=== PATIENT | male | born 1960 | race Caucasian/White ===

== ENCOUNTER 2024-02-15 21:11 | Inpatient (IN) ==
[2024-02-15 21:52] LABS: Basophils # (auto) 0.03 K/uL (0.00-0.20); Basophils % (auto) 0.2 %; Eosinophils # (auto) 0.19 K/uL (0.00-0.50); Eosinophils % (auto) 1.6 %; Hematocrit (blood only) 33.1 % (42.0-52.0); Hemoglobin 10.4 g/dl (14.0-18.0); Immature Granulocytes # (auto) 0.17 K/uL (0.01-0.20); Immature Granulocytes % (auto) 1.4 %; Lymphocytes # (auto) 1.55 K/uL (1.20-3.40); Lymphocytes % (auto) 12.9 %; Mean Corpuscular Hemoglobin 19.9 pg (25.0-34.0); Mean Corpuscular Hgb Conc 31.4 g/dL (32.0-36.0); Mean Corpuscular Volume 63.3 fL (80.0-100.0); Monocytes # (auto) 1.64 K/uL (0.11-0.59); Monocytes % (auto) 13.6 %; Neutrophils # (auto) 8.48 K/uL (1.40-6.50); Neutrophils % (auto) 70.3 %; RDW Coefficient of Variation 14.9 % (11.5-14.5); RDW Standard Deviation 32.8 fL (36.4-46.3); Red Blood Count 5.23 M/uL (4.70-6.10); White Blood Count 12.06 K/ul (4.8-10.8)
[2024-02-15 21:56] LABS: Alanine Aminotransferase 30 U/L (7-52); Albumin Globulin Ratio 0.8 (0.9-2); Albumin Level 3.7 gm/dl (3.4-5.0); Alkaline Phosphatase 111 U/L (34-104); Anion Gap 12 (3-11); Aspartate Aminotransferase 52 U/L (13-39); BUN Creatinine Ratio 19.1 (10-20); Bilirubin,Total 0.6 mg/dl (0.2-1.0); Blood Urea Nitrogen 30 mg/dl (6-23); Calcium 9.4 mg/dl (8.6-10.3); Carbon Dioxide 25 mmol/L (21-32); Chloride 96 mmol/L (98-107); Est GFR (African American) 52.5 ml/min; Est GFR (Non-African American) 45.3 ml/min; Globulin 4.4 gm/dl (2.5-4.0); Glucose 139 mg/dl (70-99(Fasting)); Potassium 3.3 mmol/L (3.5-5.1); Sodium 133 mmol/L (136-145); Total Protein 8.1 gm/dl (6.0-8.3)
[2024-02-15 22:12] LABS: Influenza A virus by PCR Negative (Neg); Influenza B virus by PCR Negative (Neg); RSV by PCR Negative (Neg); SARS CoV2 RNA(COVID-19) Ceph NEGATIVE (Negative)
[2024-02-15] MEDS: SODIUM CHLORIDE 0.9% 1,000 ML IV SCH (22:15)
--- NOTE | 2024-02-15 22:25 | Emergency Department Note ---
History of Present Illness General Chief complaint: Illness Stated complaint: DEHYDRATED,LOSING WEIGHT,FEVER,HAD L KNEE SURGERY Time Seen by Provider: 02/15/24 21:54 History of Present Illness Maximum Pain Intensity: 8 This 64-year-old gentleman who had knee surgery a week ago by Dr. Gan presents the ER complaining of fever, chills and knee pain and swelling. Patient denies chest pain, dyspnea, cough, congestion, abdominal pain. Patient states since surgery the knees are more swollen but is not red or infected appearing. No drainage from the incisional sites. He had meniscal repair surgery. Home Medications Medication Instructions Recorded Confirmed Type aspirin 81 mg tablet,delayed 81 mg PO DAILY 11/22/21 02/04/24 History release tamsulosin 0.4 mg capsule 0.4 mg PO DAILY #90 caps 01/24/23 02/04/24 Rx allopurinol 100 mg tablet See Rx Instructions .Route 05/31/23 02/04/24 Rx .COMPLEX #30 tabs docusate sodium [Stool Softener] PO DAILY 08/01/23 02/04/24 History hydrochlorothiazide 25 mg tablet 25 mg PO DAILY #90 tabs 08/22/23 02/04/24 Rx atorvastatin 20 mg tablet 20 mg PO DAILY #90 tabs 10/30/23 02/04/24 Rx tadalafil 20 mg tablet 20 mg PO DAILY PRN sexual activity 11/22/23 02/04/24 Rx #10 tabs duloxetine 60 mg capsule,delayed See Rx Instructions .Route 01/22/24 02/04/24 Rx release .COMPLEX #90 caps trazodone 150 mg tablet See Rx Instructions .Route 01/24/24 02/04/24 Rx .COMPLEX #90 tabs triamcinolone acetonide 0.1 % 1 applic topical BID PRN 02/04/24 History topical ointment omeprazole 40 mg capsule,delayed 40 mg PO QDAY #30 caps 02/05/24 Rx release Allergies Allergy/AdvReac Type Severity Reaction Status Date / Time No Known Allergies Allergy Unverified 02/04/24 10:12 Past Med/Surg History Medical History Chronic kidney disease (CKD) Depression Hyperlipemia Surgical History Status post right knee replacement Family History Grandmother (Maternal) Diabetes Heart disease Myocardial infarction Denies family history of Ovarian cancer Prostate cancer Breast cancer Colorectal cancer Social History Smoking Status: Never smoker Second Hand Exposure: No; Do You Dip or Chew Tobacco: No; Hx Alcohol Use: No Hx Substance Use: No Preferred Language: Martiniquais Communication Ability: Effective Visual Impairment: No Limitations Hearing Ability: Normal Angiography Technologist Required: No marital status: Legally Current Living Situation: Alone current occupational status: employed Feels Safe at Home: Yes Childhood Exposure to Second-Hand Smoke: No Diet: regular Dental Care, Regularly: No Physical Activity Frequency: 3-4 Times per Week Seatbelt Use: always Sunscreen Use: No Assistive Devices: Glasses Review of Systems A total of 10 systems reviewed and were otherwise negative Physical Exam Vital Signs Vital Signs - 24 hr 02/15/24 21:14 02/15/24 22:02 02/15/24 22:07 Temperature 37.9 C H Temperature Source Oral Pulse Rate 100 H 87 Pulse Rate [Apical] 87 Pulse Rhythm [Apical] Pulse Strength [Apical] Respiratory Rate 17 18 Respiratory Effort / Characteristics Non-Labored Spontaneous Non-Labored Respiratory Depth Normal Normal Respiratory Pattern Regular Regular Blood Pressure 154/81 H Blood Pressure [Left Arm] 151/88 H Blood Pressure Mean 105 Blood Pressure Mean [Left Arm] 109 Blood Pressure Position Sitting Blood Pressure Position [Left Arm] Pulse Oximetry 98 99 Oxygen Delivery Method Room Air Room Air Sepsis Recent Fever Within 48 Hours No Sepsis New/Unexplained Change in Mental Status No Sepsis Action Taken by Nursing No Action Required 02/15/24 22:22 02/15/24 22:40 02/16/24 01:30 Temperature Temperature Source Pulse Rate 90 Pulse Rate [Apical] 84 77 Pulse Rhythm [Apical] Regular Pulse Strength [Apical] Normal Respiratory Rate 18 18 18 Respiratory Effort / Characteristics Non-Labored Non-Labored Spontaneous Respiratory Depth Normal Normal Respiratory Pattern Regular Regular Blood Pressure Blood Pressure [Left Arm] 151/88 H 156/86 H Blood Pressure Mean Blood Pressure Mean [Left Arm] 109 109 Blood Pressure Position Blood Pressure Position [Left Arm] Lying Pulse Oximetry 98 100 99 Oxygen Delivery Method Room Air Room Air Sepsis Recent Fever Within 48 Hours Sepsis New/Unexplained Change in Mental Status Sepsis Action Taken by Nursing VITALS: Vitals are noted on the nurse's note and reviewed by myself. Vital signs low-grade fever GENERAL: Pleasant patient, in no acute distress, nondiaphoretic, well-developed well-nourished. SKIN: Capillary reflex less than 2 seconds. HEENT: Normocephalic. PERRLA. EOMI. Nares patent. Mucous membranes moist. Neck is supple without nuchal rigidity. HEART: Regular rate and rhythm LUNGS: Clear to auscultation bilaterally without wheezes, rales or rhonchi. No retractions or accessory muscle use. ABDOMEN: Positive bowel sounds x 4. Normal tympanic percussion. Soft, nontender, without masses or organomegaly. Dominguez sign negative. No guarding or rebound tenderness. no CVA tenderness MUSCULOSKELETAL: No gross musculoskeletal defects. Left knee edematous and tender to palpation without erythema or drainage from the incisional sites. Increased pain with range of motion. Pulses +2 equal present bilaterally. NEURO: Patient was alert and oriented to person place and time. No focal neurological deficits. Procedures Joint Aspiration/Injection Joint Asp./Inject. 1: Time Out Performed: Yes Side of body: left Joint Aspirated: knee Ultrasound Guidance: No Skin Prep: Povidone-Iodine1% Local Anesthetic: other anesthetic (spary) Needle Size Used: 18G Fluid Obtained: bloody Total fluid obtained (mL): 5 Patient Tolerated Procedure: well and no complications Complications: none Course Administered Medications Ceftriaxone Sodium (Rocephin) 2,000 mg in 50 mls @ 100 mls/hr IV NOW STA Stop: 02/16/24 02:13 Last Admin: 02/16/24 01:56 Dose: 100 mls/hr Documented By: SOLEDAD Morphine Sulfate (Morphine Sulfate 4 Mg/Ml 1 Ml Carp\Vial) 4 mg IV NOW STA Stop: 02/16/24 01:45 Last Admin: 02/16/24 01:56 Dose: 4 mg Documented By: SOLEDAD Discontinued Medications Sodium Chloride (Nss) 1,000 mls @ 999 mls/hr IV .Q1H1M NOAH Stop: 02/15/24 23:15 Last Infusion: 02/15/24 23:36 Dose: Infused Documented By: Admin: 02/15/24 22:15 Dose: 999 mls/hr Documented By: CALVIN Morphine Sulfate (Morphine Sulfate 4 Mg/Ml 1 Ml Carp\Vial) 4 mg IV NOW STA Stop: 02/15/24 23:19 Last Admin: 02/15/24 23:26 Dose: 4 mg Documented By: ERMIAS Medical Decision Making Medical Records Attestation: I reviewed the patient's medical records. Home Medications Current Medication List: was personally reviewed by me Laboratory Data Attestation: I reviewed the patient's lab results. 02/15/24 21:22 02/15/24 21:22 Lab Results 02/15/24 02/15/24 02/15/24 Range/Units 21:20 21:22 22:19 WBC 12.06 H (4.8-10.8) K/ul RBC 5.23 (4.70-6.10) M/uL Hgb 10.4 L (14.0-18.0) g/dl Hct 33.1 L (42.0-52.0) % MCV 63.3 L (80.0-100.0) fL MCH 19.9 L (25.0-34.0) pg MCHC 31.4 L (32.0-36.0) g/dL RDW Std Deviation 32.8 L (36.4-46.3) fL RDW Coeff of Joi 14.9 H (11.5-14.5) % Plt Count 385 (130-400) K/uL MPV 9.9 (9.4-12.4) fL Immature Gran % (Auto) 1.4 % Neut % (Auto) 70.3 % Lymph % (Auto) 12.9 % Morrow % (Auto) 13.6 % Eos % (Auto) 1.6 % Baso % (Auto) 0.2 % Neut # (Auto) 8.48 H (1.40-6.50) K/uL Lymph # (Auto) 1.55 (1.20-3.40) K/uL Morrow # (Auto) 1.64 H (0.11-0.59) K/uL Eos # (Auto) 0.19 (0.00-0.50) K/uL Baso # (Auto) 0.03 (0.00-0.20) K/uL Immature Gran # (Auto) 0.17 (0.01-0.20) K/uL Anisocytosis Present Microcytosis Present Tear Drop Cells 1+ Ovalocytes 1+ Sodium 133 L (136-145) mmol/L Potassium 3.3 L (3.5-5.1) mmol/L Chloride 96 L (98-107) mmol/L Carbon Dioxide 25 (21-32) mmol/L Anion Gap 12 H (3-11) BUN 30 H (6-23) mg/dl Creatinine 1.57 H (0.6-1.4) mg/dl Est Cr Clr Drug Dosing Not Reportable Est GFR ( Amer) 52.5 ml/min Est GFR (Non-Af Amer) 45.3 ml/min BUN/Creatinine Ratio 19.1 (10-20) Glucose 139 H (70-99(Fasting)) mg/dl Lactate 1.5 (0.4-2.0) mmol/L Calcium 9.4 (8.6-10.3) mg/dl Magnesium 2.1 (1.7-2.4) mg/dl Total Bilirubin 0.6 (0.2-1.0) mg/dl Direct Bilirubin 0.1 (0-0.2) mg/dl AST 52 H (13-39) U/L ALT 30 (7-52) U/L Alkaline Phosphatase 111 H (34-104) U/L Total Protein 8.1 (6.0-8.3) gm/dl Albumin 3.7 (3.4-5.0) gm/dl Globulin 4.4 H (2.5-4.0) gm/dl Albumin/Globulin Ratio 0.8 L (0.9-2) Procalcitonin 0.20 (0-0.5) ng/ml Urine Color Urine Appearance (Clear) Urine pH (4.5-7.5) Ur Specific Kenney (1.000-1.030) Urine Protein (Negative) Urine Glucose (UA) (Negative) Urine Ketones (Negative) Urine Blood (Negative) Urine Nitrite (Negative) Urine Bilirubin (Negative) Urine Urobilinogen (Negative) Ur Leukocyte Esterase (Negative) Urine WBC (Auto) (0-5) /hpf Urine RBC (Auto) (0-2) /hpf U Hyaline Cast (Auto) (0-2) /lpf U Epithel Cells (Auto) (0-2) /hpf Urine Bacteria (Auto) (None Seen) Fluid Comment Synovial Source Synovial Color Synovial Appearance Synovial WBC (Auto) (0-200) /ul Synovial RBC (Auto) /uL Synovial Polynuclear % % Synovial Mononuclear % % SARS-CoV-2 (PCR) NEGATIVE (Negative) Influenza Type A (PCR) Negative (Neg) Influenza Type B (PCR) Negative (Neg) RSV (RT-PCR) Negative (Neg) 02/15/24 02/15/24 Range/Units 23:17 23:25 WBC (4.8-10.8) K/ul RBC (4.70-6.10) M/uL Hgb (14.0-18.0) g/dl Hct (42.0-52.0) % MCV (80.0-100.0) fL MCH (25.0-34.0) pg MCHC (32.0-36.0) g/dL RDW Std Deviation (36.4-46.3) fL RDW Coeff of Joi (11.5-14.5) % Plt Count (130-400) K/uL MPV (9.4-12.4) fL Immature Gran % (Auto) % Neut % (Auto) % Lymph % (Auto) % Morrow % (Auto) % Eos % (Auto) % Baso % (Auto) % Neut # (Auto) (1.40-6.50) K/uL Lymph # (Auto) (1.20-3.40) K/uL Morrow # (Auto) (0.11-0.59) K/uL Eos # (Auto) (0.00-0.50) K/uL Baso # (Auto) (0.00-0.20) K/uL Immature Gran # (Auto) (0.01-0.20) K/uL Anisocytosis Microcytosis Tear Drop Cells Ovalocytes Sodium (136-145) mmol/L Potassium (3.5-5.1) mmol/L Chloride (98-107) mmol/L Carbon Dioxide (21-32) mmol/L Anion Gap (3-11) BUN (6-23) mg/dl Creatinine (0.6-1.4) mg/dl Est Cr Clr Drug Dosing Est GFR ( Amer) ml/min Est GFR (Non-Af Amer) ml/min BUN/Creatinine Ratio (10-20) Glucose (70-99(Fasting)) mg/dl Lactate (0.4-2.0) mmol/L Calcium (8.6-10.3) mg/dl Magnesium (1.7-2.4) mg/dl Total Bilirubin (0.2-1.0) mg/dl Direct Bilirubin (0-0.2) mg/dl AST (13-39) U/L ALT (7-52) U/L Alkaline Phosphatase (34-104) U/L Total Protein (6.0-8.3) gm/dl Albumin (3.4-5.0) gm/dl Globulin (2.5-4.0) gm/dl Albumin/Globulin Ratio (0.9-2) Procalcitonin (0-0.5) ng/ml Urine Color Yellow Urine Appearance Clear (Clear) Urine pH 5.5 (4.5-7.5) Ur Specific Kenney 1.020 (1.000-1.030) Urine Protein 1+ H (Negative) Urine Glucose (UA) Negative (Negative) Urine Ketones Negative (Negative) Urine Blood 3+ H (Negative) Urine Nitrite Negative (Negative) Urine Bilirubin Negative (Negative) Urine Urobilinogen Negative (Negative) Ur Leukocyte Esterase Negative (Negative) Urine WBC (Auto) 0-5 (0-5) /hpf Urine RBC (Auto) 6-10 H (0-2) /hpf U Hyaline Cast (Auto) 0-2 (0-2) /lpf U Epithel Cells (Auto) 0-2 (0-2) /hpf Urine Bacteria (Auto) None Seen (None Seen) Fluid Comment Synovial Source Left Knee Synovial Color Red Synovial Appearance Cloudy Synovial WBC (Auto) 38405 H (0-200) /ul Synovial RBC (Auto) 006192 /uL Synovial Polynuclear % 93.6 % Synovial Mononuclear % 6.4 % SARS-CoV-2 (PCR) (Negative) Influenza Type A (PCR) (Neg) Influenza Type B (PCR) (Neg) RSV (RT-PCR) (Neg) Imaging Data Attestation: I personally reviewed and interpreted this imaging study as follows: MDM Narrative Prior records/ancillary studies reviewed. Triage Nursing notes reviewed. Additional history obtained from family. The patient's history was concerning for fever. Differential diagnosis: Etiologies such as postop infection, viral syndrome, otitis, pharyngitis, pneumonia, influenza, meningitis, urinary tract infection, sepsis, bacteremia, as well as others were entertained. Physical examination: As above ER treatment provided: An order was placed for continuous cardiac monitoring. The monitor shows a rate of 60-100 with a sinus rhythm per my interpretation. IV fluids, Tylenol, Rocephin, morphine On reassessment the patient felt better. Diagnostics interpreted by me: The labs Independently Interpreted by myself revealed mild leukocytosis, mild anemia Blood cultures pending. Joint fluid analysis was reviewed and patient is almost 100,000 white blood cells. Gram stain shows many white blood cells Imaging studies: Knee x-ray with no fracture, foreign body or dislocation per my independent interpretation Consultation: A consultation was placed with Dr. Elliott. The case was discussed and diagnostics were reviewed. He recommends joint aspiration but believes is unlikely the patient has a septic joint from recent procedure. I called him back after that joint fluid analysis was posted and he recommends antibiotics and medical admission. Meds was consulted and the case was discussed. Patient be admitted to the medical service for further evaluation and treatment. This appears to be consistent with fever with concerns for joint infection. Patient was started on antibiotics. Medicine and orthopedics were consulted. Fluid analysis of the joint was evaluated and is concerning for possible infection. Patient is agreeable treatment plan of admission. Patient be admitted to the medical service. By the evaluation outlined above emergent etiologies such as otitis, pharyngitis, pneumonia, meningitis, urinary tract infection, sepsis, bacteremia, as well as others were deemed relatively unlikely. The pt informed about the findings as listed above. All questions were answered and pleased with the treatment. The chart was completed utilizing [employer] Speech voice recognition software. Grammatical errors, random word insertions, pronoun errors, and incomplete sentences are an occassional consequence of this system due to software limitations, ambient noise, and hardware issues. Any formal questions or concerns about the content, text, or information contained within the body of this dictation should be directly addressed to the physician music library assistant for clarification. Impression & Plan Fever, Knee swelling Discharge Plan Visit Data Chief Complaint: Illness Stated Complaint: DEHYDRATED,LOSING WEIGHT,FEVER,HAD L KNEE SURGERY ED Provider: Colin Bauer ED Midlevel Provider: Mora Jules Discharge Problem: Fever, Knee swelling Patient Disposition: Admitted As Inpatient Condition: Good Forms Stand Alone Forms: My [facility] Prescriptions Prescriptions: No Action allopurinol 100 mg tablet See Rx Instructions .ROUTE .COMPLEX Qty: 30 5RF Dose Instruction: TAKE ONE TABLET BY MOUTH EVERY DAY Rx Instructions: TAKE ONE TABLET BY MOUTH EVERY DAY docusate sodium [Stool Softener] PO DAILY hydrochlorothiazide 25 mg tablet 25 mg PO DAILY Qty: 90 1RF atorvastatin 20 mg tablet 20 mg PO DAILY Qty: 90 1RF duloxetine 60 mg capsule,delayed release(DR/EC) See Rx Instructions .ROUTE .COMPLEX Qty: 90 3RF Dose Instruction: TAKE ONE CAPSULE BY MOUTH EVERY DAY Rx Instructions: TAKE ONE CAPSULE BY MOUTH EVERY DAY trazodone 150 mg tablet See Rx Instructions .ROUTE .COMPLEX Qty: 90 0RF Dose Instruction: TAKE ONE TABLET BY MOUTH EVERY DAY Rx Instructions: TAKE ONE TABLET BY MOUTH EVERY DAY omeprazole 40 mg capsule,delayed release(DR/EC) 40 mg PO QDAY Qty: 30 1RF tamsulosin 0.4 mg capsule 0.4 mg PO DAILY Qty: 90 3RF tadalafil 20 mg tablet 20 mg PO DAILY PRN (Reason: sexual activity) Qty: 10 5RF Rx Instructions: administer approximately 30min before sexual activity; do not use more than 1 dose per 24hrs aspirin 81 mg tablet,delayed release (DR/EC) 81 mg PO DAILY triamcinolone acetonide 0.1 % ointment 1 applic topical BID PRN Referrals Referrals: Katie Persaud MD [Primary Care Provider] - Discharge Problem: Fever Qualifiers: Fever type: unspecified Qualified Code(s): R50.9 - Fever, unspecified
[2024-02-15 22:45] LABS: Anisocytosis Present; Mean Platelet Volume 9.9 fL (9.4-12.4); Microcytosis Present; Ovalocytes 1+; Platelet Count 385 K/uL (130-400); Tear Drop Cells 1+
[2024-02-15 22:52] LABS: Bilirubin Direct 0.1 mg/dl (0-0.2); Magnesium 2.1 mg/dl (1.7-2.4)
[2024-02-15] MEDS: MoRPHine SULFATE 4 MG/ML 1 ML CARP\\VIAL IV STA (23:26)
[2024-02-16 00:04] LABS: Appearance Urine Clear (Clear); Bacteria Urine Automated None Seen (None Seen); Bilirubin Urine Negative (Negative); Blood Urine 3+ (Negative); Cast Urine Automated 0-2 /lpf (0-2); Color Urine Yellow; Epithelial Cell Urine Auto 0-2 /hpf (0-2); Glucose Urine UA Negative (Negative); Ketones Urine Negative (Negative); Leukocyte Esterase Urine Negative (Negative); Nitrite Urine Negative (Negative); Protein Urine 1+ (Negative); Urobilinogen Urine Negative (Negative); WBC Urine Automated 0-5 /hpf (0-5); pH Urine 5.5 (4.5-7.5)
[2024-02-16 00:33] LABS: Appearance Synovial Fluid Cloudy; Color Synovial Fluid Red; Mononuclear WBC Synovial 6.4 %; Polynuclear WBC Synovial 93.6 %; RBC Synovial Fluid Auto 100000 /uL; Source Synovial Fluid Left Knee; WBC Synovial Fluid Auto 93460 /ul (0-200)
[2024-02-16] MEDS: MoRPHine SULFATE 4 MG/ML 1 ML CARP\\VIAL IV STA ×2 (01:56→04:11)
[2024-02-16] MEDS: cefTRIAXone SODIUM 2,000 MG/50 ML BAG IV STA (01:56)
--- NOTE | 2024-02-16 01:58 | History & Physical Report ---
"Date of Service February 16, 2024 Assessment & Plan (1) Knee swelling: (2) Fever: (3) Prediabetes: (4) Gout: (5) Chronic kidney disease (CKD): Plan Left Knee Pain | Fever, Leukocytosis | S/P Meniscus Repair -Last (02/06) had meniscus repair to his left knee -Intermittent fevers and poor PO intake/chills since Sunday -WBC 12.06k, ESR >130, CRP 25.9. Procal negative. -Joint aspiration completed in ED, synovial fluid analysis with 9300K WBC -Received 2g Ceftriaxone in ED, will continue Ceftriaxone and add Vancomycin -MRSA nares pending -Will consult orthopedics, appreciate recommendations -Tylenol, Dilaudid PRN for pain control CKD -Cr of 1.57 on arrival -Will hold HCTZ -Avoid nephrotoxic medications Gout -Continue allopurinol Depression -Continue duloxetine, trazodone HLD -Continue statin Admit to med/tele VTE prophylaxis: will defer while awaiting ortho evaluation Diet: NPO, IV fluids Code Status: Full Code History of Present Illness Primary Care Provider: Katie Persaud MD Moisés Freeman is a 64 year-old male with past medical history of CKD, HLD, gout, prediabetes, and DJD who presented to the ED due to concern of fevers and left knee pain. Mr. Freeman underwent a meniscus repair for his left knee last and a few days later (Sunday) he began to spike a fever. He notes that he contacted the orthopedics group but since his left knee was not red/swollen it was likely not related to his surgery. Since then he has continued to spike temperatures up to 101.7F and has felt generally unwell with chills, poor appetite (has lost ~10 pounds in the same time frame), and increased knee pain. Patient notes that his left knee does appear swollen when compared to the right side and is warm to the touch, but denies any redness. Patient denies chest pain, shortness of breath, nausea/vomiting, changes in bowel/bladder habits. Patient notes that he has had a right knee replacement in the past, but this recent surgery was a mensiscus repair and the joint itself was not replaced. ED Course: -Aspiration of left knee, sent for analysis and culture -XR left knee -CBC, CMP, ESR, CRP, procal Allergies Allergy/AdvReac Type Severity Reaction Status Date / Time No Known Allergies Allergy Unverified 02/16/24 02:34 Home Medications Medication Instructions Recorded Confirmed Type aspirin 81 mg tablet,delayed 81 mg PO DAILY 11/22/21 02/16/24 History release tamsulosin 0.4 mg capsule 0.4 mg PO DAILY #90 caps 01/24/23 02/16/24 Rx hydrochlorothiazide 25 mg tablet 25 mg PO DAILY #90 tabs 08/22/23 02/16/24 Rx atorvastatin 20 mg tablet 20 mg PO DAILY #90 tabs 10/30/23 02/16/24 Rx tadalafil 20 mg tablet 20 mg PO DAILY PRN sexual activity 11/22/23 02/16/24 Rx #10 tabs triamcinolone acetonide 0.1 % 1 applic topical BID PRN .. 02/04/24 02/16/24 History topical ointment omeprazole 40 mg capsule,delayed 40 mg PO QDAY #30 caps 02/05/24 02/16/24 Rx release allopurinol 100 mg tablet 100 mg PO DAILY 02/16/24 02/16/24 History docusate sodium 100 mg capsule 100 mg PO DAILY 02/16/24 02/16/24 History duloxetine 60 mg capsule,delayed 60 mg PO DAILY 02/16/24 02/16/24 History release trazodone 150 mg tablet 150 mg PO HS 02/16/24 02/16/24 History Past Med/Surg History Medical History Chronic kidney disease (CKD) Depression Hyperlipemia Surgical History Status post right knee replacement Family History Grandmother (Maternal) Diabetes Heart disease Myocardial infarction Denies family history of Ovarian cancer Prostate cancer Breast cancer Colorectal cancer Social History Smoking Status: Never smoker Second Hand Exposure: No; Do You Dip or Chew Tobacco: No; Hx Alcohol Use: No Hx Substance Use: No Preferred Language: Czech Communication Ability: Effective Visual Impairment: No Limitations Hearing Ability: Normal Air And Water Tester Required: No Beliefs That Will Affect Care: None marital status: Legally Current Living Situation: Spouse current occupational status: employed Feels Safe at Home: Yes Childhood Exposure to Second-Hand Smoke: No Diet: regular Dental Care, Regularly: No Physical Activity Frequency: 3-4 Times per Week Seatbelt Use: always Sunscreen Use: No Assistive Devices: Cane Review of Systems Review of Systems: As per above Physical Exam Constitutional: WD/WN, vitals as above Eyes: + anicteric sclerae; no conjunctival abn ormality ENMT: Ears: no external ear abnormality Nose: no external nose abnormality Moist mucous membranes Respiratory: normal respiratory effort, lungs clear to auscultation Cardiovascular: Rate/Rhythm: regular rate and regular rhythm Extremities: no pedal edema Gastrointestinal (Abdomen): Inspection/Auscultation: abdomen normal to inspection Percussion/Palpation: abdomen soft; abdomen nontender and no guarding Musculoskeletal: Left knee without erythema but edema noted. No drainage or bleeding. Skin: no rashes, warm and dry Neurologic: no focal motor deficits Psychiatric: A+Ox3, euthymic affect Results & Data Results & Data Vital Signs (Past 12 Hours) Vital Signs Temp Pulse Pulse Resp BP BP Pulse Ox 02/16/24 01:30 77 18 156/86 H 99 02/15/24 22:40 84 18 151/88 H 100 02/15/24 22:22 90 18 98 02/15/24 22:07 87 02/15/24 22:02 87 18 151/88 H 99 02/15/24 21:14 37.9 C H 100 H 17 154/81 H 98 O2 Del Method 02/16/24 01:30 Room Air 02/15/24 22:40 Room Air 02/15/24 22:22 02/15/24 22:07 02/15/24 22:02 Room Air 02/15/24 21:14 Room Air Supervising Physician Co-Signing Physician Notes Patient seen and examined, chart reviewed, case discussed with Dr. Moody and I agree with the assessment and plan as above. Patient is a 64yo male s/p left meniscus repair performed on 02/07/24. He has had intermittent fevers, poor oral intake and chills ongoing since 02/09/24. He has had progressive knee pain and swelling. Knee was aspirated in the ER On exam he is uncomfortable Left knee is warm, swollen and tender to touch Remainder of exam is unremarkable Labs and images reviewed WBC=12.06 ESR>130 Synovial fluid with 91285 WBCs, crystals pending Assessment/Plan Concern for septic arthritis following instrumentation/meniscus repair of left knee -Ceftriaxone and Vancomycin -Pain control -Orthopedics consultation appreciated -Remainder as above Resident Activity Tracking Resident Involvement: Resident Care Provided Care Provided: Adult Hospital Medicine (2) Fever Fever type: unspecified Qualified Code(s): R50.9 - Fever, unspecified"
[2024-02-16] MEDS ORDERED: HYDROmorphone INJ 0.5 MG/0.5 ML SYR IV PRN (04:45)
[2024-02-16] MEDS ORDERED: ONDANSETRON INJ 2 MG/ML 2 ML VIAL IV PRN ×2 (04:45→14:40)
[2024-02-16] MEDS ORDERED: VANCOMYCIN CONSULT ACTIVE PRN (04:45)
[2024-02-16] MEDS ORDERED: POLYETHYLENE (MIRALAX) 17 GM PACK PO PRN (04:45)
[2024-02-16] MEDS: HYDROmorphone INJ 1 MG/ML SYRINGE IV STA (05:32)
[2024-02-16] MEDS: PLASMA-LYTE A 1,000 ML IV SCH (05:32)
[2024-02-16] MEDS: VANCOMYCIN HCL 2,000 MG in SODIUM CHLORIDE 0.9% 500 ML IV ONE (05:32)
--- NOTE | 2024-02-16 07:51 | XRay Report ---
XR knee LT 3V HISTORY: 64 years-old Male pain/fever, recent OR acute pain of the left knee COMPARISON: 01/12/2024 TECHNIQUE: 3 views of the left knee FINDINGS: Mild lateral with [id number] medial and patellofemoral compartment osteoarthritis. Small to mod erate joint effusion. No acute fracture, dislocation or osseous erosion. No osteochondral defect. IMPRESSION: 1. Osteoarthritis without acute fracture or dislocation. 2. Stable [id number] joint effusion. ACT 112: Negative or not required by law. The above report was generated using voice recognition software. It may contain grammatical, syntax o r spelling errors. Electronically signed by: Harley Oro M.D. 02/16/2024 7:50 AM
--- NOTE | 2024-02-16 08:03 | XRay Report ---
XR chest 1V portable HISTORY: 64 years-old Male Sepsis acute sepsis COMPARISON: 09/13/2015 TECHNIQUE: AP view of the chest FINDINGS: Cardiomediastinal and hilar silhouettes are within normal limits. No pneumothorax, pleural effusion o r airspace consolidation. The bones of the chest appear grossly intact. IMPRESSION: No acute process. ACT 112: Negative or not required by law. The above report was generated using voice recognition software. It may contain grammatical, syntax o r spelling errors. Electronically signed by: Harley Oro M.D. 02/16/2024 8:02 AM
[2024-02-16] MEDS: DULoxetine HCL 60 MG CAP PO SCH (08:25)
[2024-02-16] MEDS: PANTOprazole 40 MG TAB PO SCH (08:25)
[2024-02-16] MEDS: TAMSULOSIN HCL 0.4 MG CAP PO SCH (08:25)
[2024-02-16] MEDS: allopurinoL 100 MG TAB PO SCH (08:25)
[2024-02-16] MEDS: ASPIRIN 81 MG ECTAB PO SCH (08:25)
[2024-02-16] MEDS: ATORVASTATIN 20 MG TAB PO SCH (08:25)
[2024-02-16] MEDS: HYDROmorphone INJ 1 MG/ML SYRINGE IV PRN (09:56)
--- NOTE | 2024-02-16 12:11 | Electrocardiogram Report ---
Test Reason : Blood Pressure : / mmHG Vent. Rate : 081 BPM Atrial Rate : 081 BPM P-R Int : 160 ms QRS Dur : 152 ms QT Int : 446 ms P-R-T Axes : 046 030 029 degrees QTc Int : 518 ms Normal sinus rhythm Right bundle branch block Abnormal ECG When compared with ECG of 17-JUL-2022 14:28, No significant change was found Confirmed by Nixon Morales ([id number]) on 02/16/2024 12:11:39 PM Referred By: REFERRED SELF Confirmed By:Nixon Morales
--- NOTE | 2024-02-16 12:56 | Orthopedic Consultation ---
Date of Service February 16, 2024 Assessment & Plan (1) Knee swelling: I discussed with him the diagnosis and treatment options. I told him that the joint aspirate was mostly a bloody aspirate so the cell count is not very reliable. It is also very unlikely that he has a joint infection following a knee arthroscopy. However, all of his infection markers were elevated and he is spiking a fever. I offered him a reaspiration of his knee but he adamantly refused. He was hoping to be more aggressive. I talked about giving this time and just seeing if the swelling went down, however, he is in a lot of pain and is unable to ambulate. Given all this, I felt it was reasonable to take him to the operating room to do an arthroscopic I&D and obtain better cultures. He understands the risk benefits alternatives procedure elected to proceed. Questions were answered and consents were signed. He is currently NPO. I plan on doing the procedure later this afternoon. History of Present Illness Reason for Consultation: Left knee infection. Requesting Physician: . Attending Physician: Maria D Lovett MD Moisés is a 64-year-old male who underwent a left knee arthroscopy about [address] Gan. He did great for the first 7 to 8 days in the last few days he has pattern for an significant increase in pain and swelling of his left knee. He is also been spiking fevers. He says he feels weak and he is unable to ambulate. He came to the emergency room with a swollen knee. His white count, sed rate, and CRP were all significantly elevated. He was running a fever. The emergency room aspirated his knee and had mostly a bloody aspiration. They did send it for cell count which showed 93,000 white cells but also overall 100,000 red blood cells. He was started on ceftriaxone and admitted to the hospitalist service with a diagnosis of possible joint infection. Orthopedics was consulted to evaluate and treat.. Allergies Allergy/AdvReac Type Severity Reaction Status Date / Time No Known Allergies Allergy Unverified 02/16/24 02:34 Home Medications Medication Instructions Recorded Confirmed Type aspirin 81 mg tablet,delayed 81 mg PO DAILY 11/22/21 02/16/24 History release tamsulosin 0.4 mg capsule 0.4 mg PO DAILY #90 caps 01/24/23 02/16/24 Rx hydrochlorothiazide 25 mg tablet 25 mg PO DAILY #90 tabs 08/22/23 02/16/24 Rx atorvastatin 20 mg tablet 20 mg PO DAILY #90 tabs 10/30/23 02/16/24 Rx tadalafil 20 mg tablet 20 mg PO DAILY PRN sexual activity 11/22/23 02/16/24 Rx #10 tabs triamcinolone acetonide 0.1 % 1 applic topical BID PRN .. 02/04/24 02/16/24 History topical ointment omeprazole 40 mg capsule,delayed 40 mg PO QDAY #30 caps 02/05/24 02/16/24 Rx release allopurinol 100 mg tablet 100 mg PO DAILY 02/16/24 02/16/24 History docusate sodium 100 mg capsule 100 mg PO DAILY 02/16/24 02/16/24 History duloxetine 60 mg capsule,delayed 60 mg PO DAILY 02/16/24 02/16/24 History release trazodone 150 mg tablet 150 mg PO HS 02/16/24 02/16/24 History Past Med/Surg History Medical History Chronic kidney disease (CKD) Depression Hyperlipemia Surgical History Status post right knee replacement Family History Grandmother (Maternal) Diabetes Heart disease Myocardial infarction Denies family history of Ovarian cancer Prostate cancer Breast cancer Colorectal cancer Social History Smoking Status: Never smoker Second Hand Exposure: No; Do You Dip or Chew Tobacco: No; Tobacco Cessation Education Requested by Patient: No Hx Alcohol Use: No Hx Substance Use: No Preferred Language: [place]i Communication Ability: Effective Visual Impairment: No Limitations Hearing Ability: Normal Sugar Mixer Required: No Beliefs That Will Affect Care: None marital status: Legally Current Living Situation: Spouse current occupational status: employed Other Information That Helps Us Care for You: No Feels Safe at Home: Yes Safety Concerns: Feels Safe At This Time Childhood Exposure to Second-Hand Smoke: No Diet: regular Dental Care, Regularly: No Physical Activity Frequency: 3-4 Times per Week Seatbelt Use: always Sunscreen Use: No Assistive Devices: Cane Review of Systems All systems reviewed & are unremarkable except as noted in HPI & below. Physical Exam On physical examination of the left knee, there is a large effusion. There is no erythema. He has very limited range of motion due to the pain and swelling.. Constitutional WD/WN, vitals as above Eyes PERRL, conjunctivae normal, anicteric sclerae ENMT external ear and nose normal, oropharynx normal Neck trachea midline, no thyromegaly Respiratory normal respiratory effort Cardiovascular RRR, no murmur, no edema Gastrointestinal (Abdomen) normal bowel sounds, soft, nontender, no hepatosplenomegaly Psychiatric A+Ox3, euthymic affect Results & Data Results & Data Laboratory Results . Diagnostic Findings . PG Care Time/CCT Total # of Minutes Spent Total Time Spent with Patient: Total time spent is greater than 50% in coordination of care (as documented) at patient's floor/unit and/or counseling patient: Coding Level of Care Code 93386 IN/OBS CONSULT LVL 4,60M (57 - DECISION FOR SURGERY) Diagnoses Knee swelling M25.469
--- NOTE | 2024-02-16 13:31 | Pharmacy Report ---
Pharmacy PK ABX Note - Date of Service February 16, 2024 - Assessment and Plan Assessment 64 year old M starting Vancomycin today for treatment of Left knee infection post recent arthroscopy. Pertinent microbiologic data includes: Negative MRSA Nasal Swab. Blood and knee cultures pending. Elevated WBC and patient spiking fevers and chills. Plan to get I&D of knee today. Plan Vancomycin * Loading dose: 2000 mg IV x 1 given this morning * Maintenance dose: 1500 mg IV every 24 hours starting this evening. * Regimen is predicted to achieve target AUC/MARIO of 400-600 mg/L.hr * Random Vanco level ordered for: 02/18/24 with AM labs Pharmacy will continue to follow and will adjust dose/frequency as necessary. Thank you. Pharmacy has transitioned to AUC monitoring for vancomycin. AUC/MARIO is the preferred PK/PD target and is associated with decreased risk of nephrotoxicity compared to traditional trough targets.
--- NOTE | 2024-02-16 14:07 | Anesthesiology Consultation ---
Date of Service February 16, 2024 Assessment & Plan Chart Review Chart Review: data entry operator initiated History Surgery Operation Date: 02/16/24 15:00 Proposed Procedures p Left Knee Arthroscopy Incision and Drainage - Bridger Elliott DO Height/Weight Height: 5 ft 10 in Weight: 97.7 kg Allergies Allergy/AdvReac Type Severity Reaction Status Date / Time No Known Allergies Allergy Unverified 02/16/24 02:34 Medications Home Medications Medication Instructions Recorded Confirmed Last Taken aspirin 81 mg tablet,delayed 81 mg PO DAILY 11/22/21 02/16/24 Unknown release tamsulosin 0.4 mg capsule 0.4 mg PO DAILY #90 caps 01/24/23 02/16/24 Unknown hydrochlorothiazide 25 mg tablet 25 mg PO DAILY #90 tabs 08/22/23 02/16/24 Unknown atorvastatin 20 mg tablet 20 mg PO DAILY #90 tabs 10/30/23 02/16/24 Unknown tadalafil 20 mg tablet 20 mg PO DAILY PRN sexual activity 11/22/23 02/16/24 Unknown #10 tabs triamcinolone acetonide 0.1 % 1 applic topical BID PRN .. 02/04/24 02/16/24 Unknown topical ointment omeprazole 40 mg capsule,delayed 40 mg PO QDAY #30 caps 02/05/24 02/16/24 Unknown release allopurinol 100 mg tablet 100 mg PO DAILY 02/16/24 02/16/24 Unknown docusate sodium 100 mg capsule 100 mg PO DAILY 02/16/24 02/16/24 Unknown duloxetine 60 mg capsule,delayed 60 mg PO DAILY 02/16/24 02/16/24 Unknown release trazodone 150 mg tablet 150 mg PO HS 02/16/24 02/16/24 Unknown Active Medications Generic Name Dose Route Start Last Admin Trade Name Freq PRN Reason Stop Dose Admin Allopurinol 100 mg 02/16/24 09:00 02/16/24 08:25 Allopurinol 100 Mg Tab PO 03/17/24 08:59 100 mg DAILY NOAH Administration Aspirin 81 mg 02/16/24 09:00 02/16/24 08:25 Aspirin 81 Mg Ectab PO 03/17/24 08:59 81 mg DAILY NOAH Administration Atorvastatin Calcium 20 mg 02/16/24 09:00 02/16/24 08:25 Atorvastatin 20 Mg Tab PO 03/17/24 08:59 20 mg DAILY NOAH Administration Duloxetine HCl 60 mg 02/16/24 09:00 02/16/24 08:25 Duloxetine Hcl 60 Mg Cap PO 03/17/24 08:59 60 mg DAILY NOAH Administration Hydromorphone HCl 1 mg 02/16/24 04:45 02/16/24 09:56 Hydromorphone Inj 1 Mg/Ml Syringe IV 03/01/24 04:44 1 mg Q4H PRN Administration Pain 7,8,9,10 Parenteral Electrolytes 1,000 mls @ 125 mls/hr 02/16/24 04:45 02/16/24 13:37 Plasma-Lyte A Ph 7.4 IV 02/16/24 20:44 Infused .Q8H NOAH Infusion Pantoprazole Sodium 40 mg 02/16/24 09:00 02/16/24 08:25 Pantoprazole 40 Mg Tab PO 03/17/24 08:59 40 mg DAILY NOAH Administration Tamsulosin HCl 0.4 mg 02/16/24 09:00 02/16/24 08:25 Tamsulosin Hcl 0.4 Mg Cap PO 03/17/24 08:59 0.4 mg DAILY NOAH Administration Past Medical History Medical History Chronic kidney disease (CKD) Depression Hyperlipemia Past Family History Family History Grandmother (Maternal) Diabetes Heart disease Myocardial infarction Denies family history of Ovarian cancer Prostate cancer Breast cancer Colorectal cancer Past Surgical History Surgical History Status post right knee replacement Social History Smoking Status: Never smoker Do You Dip or Chew Tobacco: No Hx Alcohol Use: No Hx Substance Use: No Physical Exam Vital Signs Last Vital Signs Temp 99.0 F 02/16/24 09:51 Pulse 81 02/16/24 11:20 Resp 22 02/16/24 11:20 BP 142/89 H 02/16/24 11:01 Pulse Ox 96 02/16/24 11:20 O2 Del Method Room Air 02/16/24 07:33 Testing Laboratory Results 02/15/24 21:22 02/15/24 21:22 Urine Color Yellow 02/15/24 23:25 Urine Appearance Clear (Clear) 02/15/24 23:25 Urine pH 5.5 (4.5-7.5) 02/15/24 23:25 Ur Specific [place] 1.020 (1.000-1.030) 02/15/24 23:25 Urine Protein 1+ (Negative) H 02/15/24 23:25 Urine Glucose (UA) Negative (Negative) 02/15/24 23: Urine Ketones Negative (Negative) 02/15/24 23: Urine Nitrite Negative (Negative) 02/15/24 23:25 Ur Leukocyte Esterase Negative (Negative) 02/15/24 23:25 Urine WBC (Auto) 0-5 /hpf (0-5) 02/15/24 23:25 Urine RBC (Auto) 6-10 /hpf (0-2) H 02/15/24 23:25 U Hyaline Cast (Auto) 0-2 /lpf (0-2) 02/15/24 23:25 U Epithel Cells (Auto) 0-2 /hpf (0-2) 02/15/24 23:25 Urine Bacteria (Auto) None Seen (None Seen) 02/15/24 23:25 02/15/24 23:17 Gram Stain - Final Knee Electrocardiogram Date: 02/16/24 Normal sinus rhythm Right bundle branch block Abnormal ECG When compared with ECG of 17-JUL-2022 14:28, No significant change was found Confirmed by Nixon Morales ([id number]) on 02/16/2024 12:11:39 PM
[2024-02-16] MEDS ORDERED: fentaNYL citrate PF 100 MCG/2 ML VIAL IV PRN (14:40)
[2024-02-16] MEDS ORDERED: ePHEDrine sulfate 50 MG/ML AMP IV PRN (14:40)
[2024-02-16] MEDS ORDERED: ATROPINE SULFATE 0.1 MG/ML 10ML SYR IV PRN (14:40)
[2024-02-16] MEDS ORDERED: PROPOFOL IV EMULSION 10 MG/ML 20 ML VIAL IV ONE (14:43)
[2024-02-16] MEDS ORDERED: LIDOCAINE 2% 2 ML VIAL/AMP(20MG/ML) INFIL ONE (14:43)
[2024-02-16] MEDS ORDERED: MIDAZOLAM HCL 1 MG/ML 2ML VIAL ONE (14:43)
[2024-02-16] MEDS ORDERED: fentaNYL citrate PF 100 MCG/2 ML VIAL ONE ×2 (14:43→15:25)
[2024-02-16] MEDS ORDERED: ONDANSETRON INJ 2 MG/ML 2 ML VIAL ONE (15:30)
[2024-02-16] MEDS: EpINEphrine HCL INJ 1 MG/ML 1ML SYRINGE IR ONE ×2 (15:40→15:56)
--- NOTE | 2024-02-16 15:50 | Operative Report ---
PG Post Operative Report Pre & Post Diagnosis Operation Date: 02/16/24 15:00 Left knee intra-articular joint infection Left knee intra-articular joint infection I identified the patient and participated in the time-out.: Yes Procedure Operation Date: 02/16/24 15:00 Arthroscopic irrigation and debridement of the left knee Surgeon Bridger Elliott DO Maintainer Plant Devon Cox PA-C Estimated Blood Loss 5 Findings Consistent with Post-Op Diagnosis Specimens Synovial cell count Synovial fluid cultures Description of Procedure On February 16, 2024 Moisés was brought from his hospital room to the preoperative holding area. The operative extremity identified and signed. He already had antibiotics on board. He was taken back the operative room and laid on table supine position. He was put under general anesthesia. The left knee was then prepped and draped sterile fashion. A timeout was done. The patient and the operative extremity was properly identified. The previous sutures were removed. The prior arthroscopy portal sites were opened back up. A arthroscope was placed into the lateral parapatellar portal. There was about a 20 cc of blood-tinged and slightly cloudy fluid that came out of the joint. This fluid was sent to lab for cell count with differential as well as cultures. An arthroscopic shaver was then placed in the medial parapatellar portal. Diagnostic arthroscopy showed grade 2 chondral changes within the knee. I do not see any large meniscal tears. A total of 3 L of normal saline solution was then used to washout the knee. Time was spent debrid ing any inflamed synovium. The ACL and PCL were intact. Once the total of 9 L was passed through the knee all remaining fluid was evacuated. The portal sites were closed with 3-0 nylon suture. He was then placed in a soft compressive dressing. He was then extubated and transferred to a hospital bed. He was taken to the postanesthesia care unit in stable condition. He tolerated the procedure well. Devon Cox PA-C, was present for the entire procedure. He was critical for patient positioning, prepping, draping, retraction exposure, wound closure and application of sterile dressing. I attest to the content of the Intraoperative Record and any orders documented therein. Any exceptions are noted below.
--- NOTE | 2024-02-16 16:05 | Anesthesiology Progress Note ---
Date of Service February 16, 2024 Anesthesia Post Procedure Vital Signs Vital Signs: Temp Pulse Pulse Resp BP BP Pulse Ox 02/16/24 11:20 81 22 96 02/16/24 11:10 98 02/16/24 11:01 142/89 H 02/16/24 11:01 97 02/16/24 11:00 99 02/16/24 10:50 98 02/16/24 10:40 87 13 02/16/24 10:30 85 15 02/16/24 10:20 82 21 02/16/24 10:10 94 H 02/16/24 10:00 140/80 02/16/24 10:00 83 14 95 02/16/24 09:51 99.0 F 02/16/24 09:50 81 21 87 L 02/16/24 09:46 144/86 H 02/16/24 09:46 84 20 94 02/16/24 09:40 82 23 93 02/16/24 09:30 76 24 02/16/24 09:20 78 19 94 02/16/24 09:10 82 13 97 02/16/24 09:00 80 18 97 02/16/24 08:50 84 17 98 02/16/24 08:42 142/87 H 02/16/24 08:42 97 02/16/24 08:30 81 14 97 02/16/24 08:20 76 11 L 96 02/16/24 08:10 82 23 93 02/16/24 08:00 79 22 92 02/16/24 07:50 83 13 97 02/16/24 07:40 84 16 96 02/16/24 07:33 87 15 140/85 95 02/16/24 07:32 140/85 02/16/24 07:32 95 02/16/24 07:20 84 15 02/16/24 07:10 86 20 02/16/24 07:00 85 23 02/16/24 06:58 87 02/16/24 06:50 89 16 02/16/24 06:40 83 19 02/16/24 06:30 85 24 02/16/24 06:20 82 27 H 02/16/24 06:10 85 12 02/16/24 06:00 85 19 02/16/24 05:56 85 18 128/79 96 02/16/24 05:50 88 27 H 02/16/24 05:48 85 18 129/78 96 02/16/24 05:46 91 H 23 02/16/24 05:44 129/78 02/16/24 04:45 02/16/24 04:45 84 18 143/75 H 96 02/16/24 04:23 92 H 27 H 02/16/24 04:20 90 18 02/16/24 04:10 87 17 02/16/24 04:00 91 H 17 02/16/24 03:50 90 18 02/16/24 03:40 91 H 22 02/16/24 03:38 91 H 16 02/16/24 03:00 89 18 146/87 H 98 02/16/24 03:00 89 18 146/87 H 98 02/16/24 02:50 87 18 02/16/24 02:40 90 17 02/16/24 02:30 90 14 02/16/24 02:20 93 H 16 99 02/16/24 02:10 94 H 22 97 02/16/24 02:06 92 H 02/16/24 02:00 92 H 14 97 02/16/24 02:00 89 18 156/89 H 98 02/16/24 01:50 92 H 17 98 02/16/24 01:40 91 H 15 97 02/16/24 01:30 156/86 H 02/16/24 01:30 77 18 156/86 H 99 02/16/24 01:20 91 H 16 97 02/16/24 01:10 91 H 16 96 02/16/24 01:00 91 H 18 95 02/15/24 22:40 84 18 151/88 H 100 02/15/24 22:22 90 18 98 02/15/24 22:07 87 02/15/24 22:02 87 18 151/88 H 99 02/15/24 21:14 100.2 F H 100 H 17 154/81 H 98 Pulse Ox O2 Del Method O2 Del Method 02/16/24 11:20 02/16/24 11:10 02/16/24 11:01 02/16/24 11:01 02/16/24 11:00 02/16/24 10:50 02/16/24 10:40 02/16/24 10:30 02/16/24 10:20 02/16/24 10:10 02/16/24 10:00 02/16/24 10:00 02/16/24 09:51 02/16/24 09:50 02/16/24 09:46 02/16/24 09:46 02/16/24 09:40 02/16/24 09:30 02/16/24 09:20 02/16/24 09:10 02/16/24 09:00 02/16/24 08:50 02/16/24 08:42 02/16/24 08:42 02/16/24 08:30 02/16/24 08:20 02/16/24 08:10 02/16/24 08:00 02/16/24 07:50 02/16/24 07:40 02/16/24 07:33 Room Air 02/16/24 07:32 02/16/24 07:32 02/16/24 07:20 02/16/24 07:10 02/16/24 07:00 02/16/24 06:58 02/16/24 06:50 02/16/24 06:40 02/16/24 06:30 02/16/24 06:20 02/16/24 06:10 02/16/24 06:00 02/16/24 05:56 Room Air 02/16/24 05:50 02/16/24 05:48 Room Air 02/16/24 05:46 02/16/24 05:44 02/16/24 04:45 96 Room Air 02/16/24 04:45 Room Air 02/16/24 04:23 02/16/24 04:20 02/16/24 04:10 02/16/24 04:00 02/16/24 03:50 02/16/24 03:40 02/16/24 03:38 02/16/24 03:00 Room Air 02/16/24 03:00 Room Air 02/16/24 02:50 02/16/24 02:40 02/16/24 02:30 02/16/24 02:20 02/16/24 02:10 02/16/24 02:06 02/16/24 02:00 02/16/24 02:00 Room Air 02/16/24 01:50 02/16/24 01:40 02/16/24 01:30 02/16/24 01:30 Room Air 02/16/24 01:20 02/16/24 01:10 02/16/24 01:00 02/15/24 22:40 Room Air 02/15/24 22:22 02/15/24 22:07 02/15/24 22:02 Room Air 02/15/24 21:14 Room Air Pain Intensity Left Knee: Pain Intensity: 6 Transfer of Care Handoff Completed per policy Notes Mental Status: alert / awake / arousable and participated in evaluation Patient Amnestic to Procedure: Yes Nausea / Vomiting: adequately controlled Pain: adequately controlled Airway Patency, RR, SpO2: stable & adequate BP & HR: stable & adequate Hydration State: stable & adequate Anesthetic Complications: no major complications apparent and Pt Satisfied with anesthetic care
[2024-02-16 17:23] LABS: Appearance Synovial Fluid Bloody; Color Synovial Fluid Red; Mononuclear WBC Synovial 4.5 %; Polynuclear WBC Synovial 95.5 %; RBC Synovial Fluid Auto 200000 /uL; Source Synovial Fluid Left Knee; WBC Synovial Fluid Auto 70900 /ul (0-200)
[2024-02-16] MEDS: SODIUM CHLORIDE 0.9% 1,000 ML IV SCH (18:34)
[2024-02-16] MEDS: VANCOMYCIN HCL 1,500 MG in SODIUM CHLORIDE 0.9% 500 ML IV SCH (19:34)
[2024-02-16] MEDS: ACETAMINOPHEN 325 MG TAB PO PRN (21:14)
[2024-02-16] MEDS: traZODone HCL 50 MG TAB PO SCH (21:14)
[2024-02-16] MEDS: cefTRIAXone SODIUM 2,000 MG in DEXTROSE 5 % MINI-B 50 ML IV SCH (23:43)
--- NOTE | 2024-02-17 04:49 | Billing Data ---
Date of Service February 16, 2024 Coding Level of Care Code 71393 INT INP/OBS CARE
[2024-02-17 08:19] LABS: BUN Creatinine Ratio 16.1 (10-20); Calcium 8.5 mg/dl (8.6-10.3); Creatinine Clr Calc Pharmacy 72.7 ml/min; Est GFR (African American) 74.1 ml/min; Est GFR (Non-African American) 63.9 ml/min; Potassium 3.5 mmol/L (3.5-5.1)
[2024-02-17 08:22] LABS: Basophils # (auto) 0.04 K/uL (0.00-0.20); Basophils % (auto) 0.4 %; Eosinophils # (auto) 0.25 K/uL (0.00-0.50); Eosinophils % (auto) 2.5 %; Hematocrit (blood only) 28.2 % (42.0-52.0); Hemoglobin 8.5 g/dl (14.0-18.0); Immature Granulocytes # (auto) 0.25 K/uL (0.01-0.20); Immature Granulocytes % (auto) 2.5 %; Lymphocytes # (auto) 1.03 K/uL (1.20-3.40); Lymphocytes % (auto) 10.5 %; Mean Corpuscular Hemoglobin 19.7 pg (25.0-34.0); Mean Corpuscular Hgb Conc 30.1 g/dL (32.0-36.0); Mean Corpuscular Volume 65.3 fL (80.0-100.0); Monocytes # (auto) 1.25 K/uL (0.11-0.59); Monocytes % (auto) 12.7 %; Neutrophils # (auto) 6.99 K/uL (1.40-6.50); Neutrophils % (auto) 71.4 %; RDW Standard Deviation 34.8 fL (36.4-46.3); Red Blood Count 4.32 M/uL (4.70-6.10); White Blood Count 9.81 K/ul (4.8-10.8)
[2024-02-17 09:21] LABS: Mean Platelet Volume 10.3 fL (9.4-12.4); Platelet Count 326 K/uL (130-400); Polychromasia 1+; Tear Drop Cells 1+
--- NOTE | 2024-02-17 10:34 | Orthopedic Progress Note ---
Date of Service February 17, 2024 Assessment & Plan (1) Status post arthroscopic knee surgery: Overall he is doing very well today. He feels much better. He is currently on vancomycin and ceftriaxone. The repeat synovial analysis continues to show some blood but also an elevated white blood cell count and 95% PMNs. Although the bloody aspirates cannot be fully accurate, I am still little bit suspicious for infection. Will wait to see what the cultures grow. He is on the hospitalist service. I will make Dr. Gan aware today and Dr. Gan will take over care starting tomorrow. Cosme Curiel was seen and examined at bedside this morning. Overall he is doing much better. He is having much less pain in his knee. He is very happy had the procedure done yesterday. He has been receiving IV antibiotics. He is no complaints.. Review of Systems All systems reviewed & are unremarkable except as noted in HPI & below. Physical Exam On physical examination of left knee, the dressing is clean and dry. His legs out full extension. He is active dorsiflexion plantarflexion of his left ankle.. Results & Data Results & Data Laboratory Results . Diagnostic Findings . PG Care Time/CCT Total # of Minutes Spent Total Time Spent with Patient: Total time spent is greater than 50% in coordination of care (as documented) at patient's floor/unit and/or counseling patient: Coding Level of Care Code 49751 Post Operative Follow-Up Diagnoses Status post arthroscopic knee surgery Z98.890
[2024-02-17] MEDS: VANCOMYCIN HCL 1,500 MG in SODIUM CHLORIDE 0.9% 500 ML IV SCH (12:14)
--- NOTE | 2024-02-17 14:04 | Hospitalist Progress Note ---
"Date of Service February 17, 2024 Assessment & Plan (1) Knee swelling: Plan: suspect septic arthritis, s/p left knee arthroscopy about [address] Gan, presents with left knee pain and swelling, fever Arthroscopic irrigation and debridement of the left knee by Dr Elliott yesterday , reports feeling better, follow up on synovial fluid cultures, count continue IV antibiotics (2) Fever: Plan: due to septic arthritis ? resolve (3) Prediabetes: Plan: insulin sliding scale (4) Gout: Plan: continue allopurinol (5) Chronic kidney disease (CKD): Plan: bun/creatinine stable Plan Left Knee Pain | Fever, Leukocytosis | S/P Meniscus Repair -Last (02/06) had meniscus repair to his left knee -Intermittent fevers and poor PO intake/chills since Sunday -WBC 12.06k, ESR >130, CRP 25.9. Procal negative. -Joint aspiration completed in ED, synovial fluid analysis with 9300K WBC -Received 2g Ceftriaxone in ED, will continue Ceftriaxone and add Vancomycin s/p left knee washout , follow up on cultures continue antibiotics CKD -Cr of 1.57 on arrival normal now -Will hold HCTZ -Avoid nephrotoxic medications Gout -Continue allopurinol Depression -Continue duloxetine, trazodone HLD -Continue statin Admit to med/tele VTE prophylaxis: will defer while awaiting ortho evaluation Diet: NPO, IV fluids Code Status: Full Code anemia , unclear etiology, dilutional? obtain iron study, b12, folate Admission and Anticipated Discharge Date Admission Date: February 16, 2024 Subjective reports feeling much better, n fever, tolerating diet , less pain in left knee after procedure yesterday Review of Systems Review of Systems: denies headache, no fever, chills no chest pain, no SOB, no chest pain no nausea, vomiting, no abdominal pain left knee pain is much less no weakness, no numbness Physical Exam Physical Exam: head atraumatic, normocephalic neck supple chest CTA b/l heart S1S 2 regular abdomen soft, NT, ND, BS present extremities Left knee wrapped neuro AAO X3, no focal deficit Results & Data Results & Data Vital Signs (Past 12 Hours) Vital Signs Temp Pulse Pulse Resp BP BP Pulse Ox 02/17/24 11:29 37.4 C 72 18 123/69 97 02/17/24 08:00 68 04/14/24 07:43 37.6 C H 75 18 116/68 98 02/17/24 04:00 37.0 C 80 18 106/60 98 O2 Del Method 02/17/24 11:29 Room Air 02/17/24 08:00 02/17/24 07:43 Room Air 02/17/24 04:00 Room Air PG Care Time/CCT Total # of Minutes Spent Total Time Spent with Patient: Total time spent is greater than 50% in coordination of care (as documented) at patient's floor/unit and/or counseling patient: Coding Level of Care Code 79127 SUB INP/OBS CARE 2/35MIN Diagnoses Knee swelling M25.469 Fever R50.9 Fever type: unspecified Prediabetes R73.03 Gout M10.9 Chronic kidney disease (CKD) N18.9 (2) Fever Fever type: unspecified Qualified Code(s): R50.9 - Fever, unspecified"
[2024-02-17] MEDS ORDERED: Nursing to Pharmacy Communication SCH (23:30)
[2024-02-18 06:20] LABS: Basophils # (auto) 0.02 K/uL (0.00-0.20); Basophils % (auto) 0.2 %; Eosinophils # (auto) 0.35 K/uL (0.00-0.50); Eosinophils % (auto) 3.8 %; Hematocrit (blood only) 25.2 % (42.0-52.0); Hemoglobin 7.7 g/dl (14.0-18.0); Immature Granulocytes % (auto) 1.1 %; Lymphocytes # (auto) 1.09 K/uL (1.20-3.40); Lymphocytes % (auto) 11.7 %; Mean Corpuscular Hemoglobin 19.7 pg (25.0-34.0); Mean Corpuscular Hgb Conc 30.6 g/dL (32.0-36.0); Mean Corpuscular Volume 64.5 fL (80.0-100.0); Monocytes # (auto) 1.19 K/uL (0.11-0.59); Monocytes % (auto) 12.8 %; Neutrophils # (auto) 6.56 K/uL (1.40-6.50); Neutrophils % (auto) 70.4 %; RDW Coefficient of Variation 14.8 % (11.5-14.5); Red Blood Count 3.91 M/uL (4.70-6.10); White Blood Count 9.31 K/ul (4.8-10.8)
[2024-02-18 06:36] LABS: Mean Platelet Volume 10.3 fL (9.4-12.4); Platelet Count 304 K/uL (130-400)
[2024-02-18 06:37] LABS: BUN Creatinine Ratio 13.4 (10-20); Calcium 8.5 mg/dl (8.6-10.3); Creatinine Clr Calc Pharmacy 68.4 ml/min; Est GFR (African American) 67.8 ml/min; Est GFR (Non-African American) 58.5 ml/min; Potassium 3.6 mmol/L (3.5-5.1)
[2024-02-18 06:57] LABS: Folate (Folic Acid),Ser orPlas 20.82 ng/ml (>5.38)
[2024-02-18 07:01] LABS: Microcytosis Present; Spherocytes 1+
--- NOTE | 2024-02-18 09:01 | Pharmacy Report ---
Pharmacy PK ABX Note - Date of Service February 18, 2024 - Assessment and Plan Assessment 64 year old M starting Vancomycin today for treatment of left knee infection post recent arthroscopy. Pertinent microbiologic data includes: Negative MRSA Nasal Swab. Blood cultures show no growth at 48 hours, multiple knee cultures pending. Leukocytosis improved (~12 -> 9 K), synovial WBC elevated on 02/14 and 02/15. Patient feeling better post I&D on 02/15. Day #3 of IV antibiotic therapy. Plan Vancomycin * Current regimen: 1500 mg IV every 18 hours * Random level obtained 02/18/24 resulted as 8.9 mcg/mL. This is predicted to achieve target AUC/MARIO of 400-600 mg/L.hr * Predicted AUC at steady state: 499 mg/L.hr * Continue 1500 mg IV every 18 hours * Will repeat level in the next 48-72 hours if therapy is continued and/or change in patient clinical status Ceftriaxone * 2 g IV q24h - Pharmacy will continue to follow and will adjust dose/frequency as necessary. Thank you. Pharmacy has transitioned to AUC monitoring for vancomycin. AUC/MARIO is the preferred PK/PD target and is associated with decreased risk of nephrotoxicity compared to traditional trough targets.
--- NOTE | 2024-02-18 14:57 | Discharge Summary ---
Date of Service February 18, 2024 Admission HPI Per Admitting Provider Moisés Freeman is a 64 year-old male with past medical history of CKD, HLD, gout, prediabetes, and DJD who presented to the ED due to concern of fevers and left knee pain. Mr. Freeman underwent a meniscus repair for his left knee last and a few days later (Sunday) he began to spike a fever. He notes that he contacted the orthopedics group but since his left knee was not red/swollen it was likely not related to his surgery. Since then he has continued to spike temperatures up to 101.7F and has felt generally unwell with chills, poor appetite (has lost ~10 pounds in the same time frame), and increase d knee pain. Patient notes that his left knee does appear swollen when compared to the right side and is warm to the touch, but denies any redness. Patient denies chest pain, shortness of breath, nausea/vomiting, changes in bowel/bladder habits. Patient notes that he has had a right knee replacement in the past, but this recent surgery was a mensiscus repair and the joint itself was not replaced. ED Course: -Aspiration of left knee, sent for analysis and culture -XR left knee -CBC, CMP, ESR, CRP, procal Discharge Data Allergies Allergy/AdvReac Type Severity Reaction Status Date / Time No Known Allergies Allergy Unverified 02/16/24 02:34 Consultations 02/16/24 01:48 ED Decision to Admit Stat 02/16/24 04:45 Consult Orthopedic Surgery Routine Procedures Performed Operation Date: 02/16/24 15:00 Actual Procedures p Left Knee Arthroscopy Incision and Drainage(Left) - Bridger Elliott, DO Discharge Plan Discharge Items Reason For Visit: KNEE PAIN Condition on Discharge: Good Follow-up/Referrals: Katie Persaud MD [Primary Care Provider] - Medications and DC Order Prescriptions: No Action hydrochlorothiazide 25 mg tablet 25 mg PO DAILY Qty: 90 1RF atorvastatin 20 mg tablet 20 mg PO DAILY Qty: 90 1RF omeprazole 40 mg capsule,delayed release(DR/EC) 40 mg PO QDAY Qty: 30 1RF tamsulosin 0.4 mg capsule 0.4 mg PO DAILY Qty: 90 3RF tadalafil 20 mg tablet 20 mg PO DAILY PRN (Reason: sexual activity) Qty: 10 5RF Rx Instructions: administer approximately 30min before sexual activity; do not use more than 1 dose per 24hrs aspirin 81 mg tablet,delayed release (DR/EC) 81 mg PO DAILY triamcinolone acetonide 0.1 % ointment 1 applic topical BID PRN (Reason: ..) docusate sodium 100 mg Capsule 100 mg PO DAILY allopurinol 100 mg tablet 100 mg PO DAILY Rx Instructions: TAKE ONE TABLET BY MOUTH EVERY DAY trazodone 150 mg tablet 150 mg PO HS Rx Instructions: TAKE ONE TABLET BY MOUTH EVERY DAY duloxetine 60 mg capsule,delayed release(DR/EC) 60 mg PO DAILY Rx Instructions: TAKE ONE CAPSULE BY MOUTH EVERY DAY Admission Data Admit Date/Time: 02/16/24 02:32 Attending Provider: Daniel Alvarez Admit Provider: Yancy Moody Primary Care Provider: Katie Persaud Other Providers: Susy Peña Brian A
--- NOTE | 2024-02-18 14:57 | Hospitalist Progress Note ---
"Date of Service February 18, 2024 Assessment & Plan (1) Knee swelling: (2) Fever: (3) Prediabetes: (4) Gout: (5) Chronic kidney disease (CKD): Plan Left Knee Pain | Fever, Leukocytosis | S/P Meniscus Repair -Last (02/06) had meniscus repair to his left knee -Intermittent fevers and poor PO intake/chills since Sunday -WBC 12.06k, ESR >130, CRP 25.9. Procal negative. -Joint aspiration completed in ED, synovial fluid analysis with 9300K WBC -Received 2g Ceftriaxone in ED, will continue Ceftriaxone and add Vancomycin -MRSA nares negative -Tylenol, Dilaudid PRN for pain control -Wound culture on 02/14 on the left leg showed coagulase-negative Staphylococcus. -Left knee wound cultures done on 02/15 during joint aspiration are negative to date. -Given patient's complexity and status post meniscal repair reached out to orthopedics on-call. Orthopedics had no antibiotic recommendations. -Will consult infectious disease for antibiotic recommendations and to see if patient needs IV antibiotics for if we can safely switch over to p.o. antibiotics. CKD -Cr of 1.57 on arrival -Will hold HCTZ -Avoid nephrotoxic medications Gout -Continue allopurinol Depression -Continue duloxetine, trazodone HLD -Continue statin Admit to med/tele VTE prophylaxis: will defer while awaiting ortho evaluation Diet: NPO, IV fluids Code Status: Full Code Admission and Anticipated Discharge Date Admission Date: February 16, 2024 Supervising Physician Co-Signing Physician Notes Attending attestation Pt seen and examined in concert with Dr. Bradshaw. In agreement with the documented findings as noted in the resident documentation with any exceptions or additions as noted here. Tolerating aching left knee pain with current pain medication regimen. On examination, S1/S2 nl RRR no MCG. CTAB. Abd NT/ND BS+ve Wound Cx from 02/14 w/ coag-negative staph L knee pain s/p meniscal repair with concern for intra-articular infection - wound cx +ve, ID consult - continue vancomycin and follow up C/S when available to guide treatment. CKD IIIa - holding HCTZ, avoid nephrotoxic medications where able. Monitor Cr daily Else see resident documentation as noted. Subjective Patient was seen bedside this AM. Still having some pain in his L knee but improving. Denies any fever, chills, nausea, vomiting, or ab pain. Review of Systems Review of Systems: All systems reviewed & are unremarkable except as noted in Subjective Physical Exam Physical Exam: Constitutional: well-appearing, no acute distress CV: regular rhythm, no murmur appreciated, extremities well-perfused, no LE edema Resp: CTABL, no wheezes/rales/rhonchi appreciated, no increased work of breathing GI: soft, nondistended, nontender, BS normoactive MSK: L knee wrapped Skin: warm, dry, no rash appreciated Neuro: alert, oriented, no focal neurologic deficit appreciated Results & Data Results & Data Vital Signs (Past 12 Hours) Vital Signs Temp Pulse Pulse Resp BP BP Pulse Ox 02/18/24 11:00 37.2 C 67 18 129/70 97 02/18/24 07:31 36.9 C 65 18 127/70 96 02/18/24 07:18 71 02/18/24 03:37 37.5 C 74 20 128/71 97 O2 Del Method 02/18/24 11:00 Room Air 02/18/24 07:31 Room Air 02/18/24 07:18 02/18/24 03:37 Room Air (2) Fever Fever type: unspecified Qualified Code(s): R50.9 - Fever, unspecified"
[2024-02-18] MEDS: traZODone HCL 50 MG TAB PO SCH (21:06)
[2024-02-18] MEDS: VANCOMYCIN LEVEL ONE (21:07)
[2024-02-19 06:51] LABS: Basophils # (auto) 0.05 K/uL (0.00-0.20); Basophils % (auto) 0.5 %; Hematocrit (blood only) 27.2 % (42.0-52.0); Hemoglobin 8.3 g/dl (14.0-18.0); Immature Granulocytes # (auto) 0.14 K/uL (0.01-0.20); Immature Granulocytes % (auto) 1.4 %; Lymphocytes # (auto) 1.37 K/uL (1.20-3.40); Lymphocytes % (auto) 13.6 %; Mean Corpuscular Hemoglobin 19.4 pg (25.0-34.0); Mean Corpuscular Hgb Conc 30.5 g/dL (32.0-36.0); Mean Corpuscular Volume 63.7 fL (80.0-100.0); Monocytes # (auto) 1.04 K/uL (0.11-0.59); Monocytes % (auto) 10.3 %; Neutrophils # (auto) 7.05 K/uL (1.40-6.50); Neutrophils % (auto) 70.2 %; RDW Coefficient of Variation 15.1 % (11.5-14.5); RDW Standard Deviation 33.5 fL (36.4-46.3); Red Blood Count 4.27 M/uL (4.70-6.10); White Blood Count 10.05 K/ul (4.8-10.8)
[2024-02-19 07:16] LABS: BUN Creatinine Ratio 14.5 (10-20); Calcium 8.7 mg/dl (8.6-10.3); Creatinine Clr Calc Pharmacy 74.1 ml/min; Est GFR (African American) 74.9 ml/min; Est GFR (Non-African American) 64.6 ml/min; Potassium 3.7 mmol/L (3.5-5.1)
[2024-02-19 07:21] LABS: Mean Platelet Volume 9.6 fL (9.4-12.4); Microcytosis Present; Platelet Count 329 K/uL (130-400); Polychromasia 1+; Tear Drop Cells 1+
--- NOTE | 2024-02-19 07:26 | Discharge Summary ---
"Date of Service February 19, 2024 Discharge Data Allergies Allergy/AdvReac Type Severity Reaction Status Date / Time No Known Allergies Allergy Unverified 02/16/24 02:34 Consultations 02/16/24 01:48 ED Decision to Admit Stat 02/16/24 04:45 Consult Orthopedic Surgery Routine 02/18/24 16:31 Consult Infectious Diseases Routine Procedures Performed Operation Date: 02/16/24 15:00 Actual Procedures p Left Knee Arthroscopy Incision and Drainage(Left) - Bridger Elliott DO Hospital Course (1) Knee swelling: (2) Fever: (3) Prediabetes: (4) Gout: (5) Chronic kidney disease (CKD): (6) Iron deficiency anemia: Plan Left Knee Pain | Fever, Leukocytosis | S/P Meniscus Repair -Last (02/06) had meniscus repair to his left knee -Intermittent fevers and poor PO intake/chills since Sunday -WBC 12.06k, ESR >130, CRP 25.9. Procal negative. -Joint aspiration completed in ED, synovial fluid analysis with 9300K WBC -Received 2g Ceftriaxone in ED, will continue Ceftriaxone and add Vancomycin -MRSA nares negative -Tylenol, Dilaudid PRN for pain control -Wound culture on 02/14 on the left leg showed coagulase-negative Staphylococcus. -Left knee wound cultures done on 02/15 during joint aspiration are negative to date. -Given patient's complexity and status post meniscal repair reached out to orthopedics on-call. Orthopedics had no antibiotic recommendations. -Will consult infectious disease for antibiotic recommendations and to see if patient needs IV antibiotics for if we can safely switch over to p.o. antibiotics. CKD -Cr of 1.57 on arrival -Will hold HCTZ -Avoid nephrotoxic medications Gout -Continue allopurinol Depression -Continue duloxetine, trazodone HLD -Continue statin Iron Deficiency Anemia -recommend f/u with PCP. Discharge Plan Discharge Items Reason For Visit: KNEE PAIN Condition on Discharge: Good Follow-up/Referrals: Katie Persaud MD [Primary Care Provider] - Medications and DC Order Prescriptions: No Action hydrochlorothiazide 25 mg tablet 25 mg PO DAILY Qty: 90 1RF atorvastatin 20 mg tablet 20 mg PO DAILY Qty: 90 1RF omeprazole 40 mg capsule,delayed release(DR/EC) 40 mg PO QDAY Qty: 30 1RF tamsulosin 0.4 mg capsule 0.4 mg PO DAILY Qty: 90 3RF tadalafil 20 mg tablet 20 mg PO DAILY PRN (Reason: sexual activity) Qty: 10 5RF Rx Instructions: administer approximately 30min before sexual activity; do not use more than 1 dose per 24hrs aspirin 81 mg tablet,delayed release (DR/EC) 81 mg PO DAILY triamcinolone acetonide 0.1 % ointment 1 applic topical BID PRN (Reason: ..) docusate sodium 100 mg Capsule 100 mg PO DAILY allopurinol 100 mg tablet 100 mg PO DAILY Rx Instructions: TAKE ONE TABLET BY MOUTH EVERY DAY trazodone 150 mg tablet 150 mg PO HS Rx Instructions: TAKE ONE TABLET BY MOUTH EVERY DAY duloxetine 60 mg capsule,delayed release(DR/EC) 60 mg PO DAILY Rx Instructions: TAKE ONE CAPSULE BY MOUTH EVERY DAY Admission Data Admit Date/Time: 02/16/24 02:32 Attending Provider: Daniel Alvarez Admit Provider: Yancy Moody Primary Care Provider: Katie Persaud Other Providers: Susy Peña; Bridger Elliott; Hayley Flores; Lima Luciano; Sterling Russo; Stephania Chaocn; Eileen Peters; Edith Leger; Sheryl Collins; Celina Hurtado"
--- NOTE | 2024-02-19 12:46 | Infectious Disease Consult ---
Date of Consultation February 19, 2024 Assessment & Plan (1) Status post arthroscopic knee surgery: (2) Knee swelling: (3) Fever: Plan #L knee intra-articular infection s/p aspiration on 02/14 and I+D on 02/15 # Prior meniscus repair 64 yo M with h/o CKD, HLD, gout, prediabetes, left knee arthroscopy 1 week prior to presentation (02/07/24) for DJD admitted to [facility] with left knee pain and fevers. ID is consulted for c/f septic arthritis. Patient underwent meniscus repair for his left knee on 02/06. A few days post op, he developed fevers. Temperatures up to 101.7F and has felt generally unwell with chills, poor appetite (has lost ~10 pounds in the same time frame), and increased knee pain, directed to ED. On admission, temp 37.9 Labs notable for WBC 12.06, Hgb 10.4, plt 385 ESR >130, CRP 25.9 low potassium and sodium. Cr 1.57 (baseline 1.4), UA 3+blood. 02/14 blood cultures ng, Xray of left knee showed OA and small/mod joint effusion. He underwent left knee aspiration in ER with 93K wbcs, 93% pmns, 100K rbcs. Synovial cx growing 2 different colonies of CoNS (no sensi) 02/15 he was taken to OR with Dr. Elliott for I+D of left knee. OR notes 20 cc of blood-tinged and slightly cloudy fluid that came out of the joint synovial fluid 70K 95% pmns, 200K rbcs, synovial cultures gram stain many wbcs, no organisms, no growth, final MRSA nares neg Discussion: I called and spoke with Micro, there are no colonies of CoNS growth. They are adding sensi and should be available 02/19 or 02/20, we can adjust abx accordingly Recommend C/W Vancomycin, pharm following levels Await sensi update by micro Anticipate 4 week therapy (no hardware) ID will follow Stephania Chacon MD Infectious Diseases [facility], [facility] Consultation Information Consultation was provided via telemedicine using two-way real-time interactive telecommunication between the patient and the telemedicine provider. For the duration of the visit, the provider was performing the assessment from a different facility than the patient. This includesuse of bluetooth stethoscope forauscultationperformed by the telepresenter that the telemedicine provider can hear if described in the physical exam. First Officer contact information: Please call [facility] Call Center [phone]. (Phone Number For Physician Use Only) After establishing a telemedicine visit, patient was: Patient was verified with two unique identifiers, Patient/authorized rep acknowledged consent and understanding and Gave permission to continue telehealth session Time Spent with Patient: Initial => 55 min History of Present Illness Reason for Consultation: Septic knee Requesting Physician: Dr. Alvarez Attending Physician: Daniel Alvarez MD History of Present Illness 64 yo M with h/o CKD, HLD, gout, prediabetes, left knee arthroscopy 1 week prior to presentation (02/07/24) for DJD admitted to [facility] with left knee pain and fevers. ID is consulted for c/f septic arthritis. Patient underwent meniscus repair for his left knee on 02/06. A few days post op, he developed fevers. Temperatures up to 101.7F and has felt generally unwell with chills, poor appetite (has lost ~10 pounds in the same time frame), and increased knee pain, directed to ED. On admission, temp 37.9 Labs notable for WBC 12.06, Hgb 10.4, plt 385 ESR >130, CRP 25.9 low potassium and sodium. Cr 1.57 (baseline 1.4), UA 3+blood. 02/14 blood cultures ng, Xray of left knee showed OA and small/mod joint effusion. He underwent left knee aspiration in ER with 93K wbcs, 93% pmns, 100K rbcs. Synovial cx growing 2 different colonies of CoNS (no sensi) 02/15 he was taken to OR with Dr. Elliott for I+D of left knee. OR notes 20 cc of blood-tinged and slightly cloudy fluid that came out of the joint synovial fluid 70K 95% pmns, 200K rbcs, synovial cultures gram stain many wbcs, no organisms, no growth, final MRSA nares neg Patient on IV Vancomycin. Allergies Allergy/AdvReac Type Severity Reaction Status Date / Time No Known Allergies Allergy Unverified 02/16/24 02:34 Home Medications Medication Instructions Recorded Confirmed Type aspirin 81 mg tablet,delayed 81 mg PO DAILY 11/22/21 02/16/24 History release tamsulosin 0.4 mg capsule 0.4 mg PO DAILY #90 caps 01/24/23 02/16/24 Rx hydrochlorothiazide 25 mg tablet 25 mg PO DAILY #90 tabs 08/22/23 02/16/24 Rx atorvastatin 20 mg tablet 20 mg PO DAILY #90 tabs 10/30/23 02/16/24 Rx tadalafil 20 mg tablet 20 mg PO DAILY PRN sexual activity 11/22/23 02/16/24 Rx #10 tabs triamcinolone acetonide 0.1 % 1 applic topical BID PRN .. 02/04/24 02/16/24 History topical ointment omeprazole 40 mg capsule,delayed 40 mg PO QDAY #30 caps 02/05/24 02/16/24 Rx release allopurinol 100 mg tablet 100 mg PO DAILY 02/16/24 02/16/24 History docusate sodium 100 mg capsule 100 mg PO DAILY 02/16/24 02/16/24 History duloxetine 60 mg capsule,delayed 60 mg PO DAILY 02/16/24 02/16/24 History release trazodone 150 mg tablet 150 mg PO HS 02/16/24 02/16/24 History allopurinol 100 mg tablet 100 mg PO DAILY #30 tabs 02/19/24 Rx Patient History Medical History Chronic kidney disease (CKD) Depression Hyperlipemia Surgical History Status post right knee replacement Family History Grandmother (Maternal) Diabetes Heart disease Myocardial infarction Denies family history of Ovarian cancer Prostate cancer Breast cancer Colorectal cancer Social History Smoking Status: Never smoker Second Hand Exposure: No; Do You Dip or Chew Tobacco: No; Hx Alcohol Use: No Hx Substance Use: No Preferred Language: Occitan Communication Ability: Effective Visual Impairment: No Limitations Hearing Ability: Normal Vacuum Bottle Assembler Required: No Beliefs That Will Affect Care: None marital status: Legally Current Living Situation: Spouse current occupational status: employed Feels Safe at Home: Yes Childhood Exposure to Second-Hand Smoke: No Diet: regular Dental Care, Regularly: No Physical Activity Frequency: 3-4 Times per Week Seatbelt Use: always Sunscreen Use: No Assistive Devices: Cane and Glasses Results & Data Vital Signs (Past 12 Hours) Vital Signs Temp Pulse Pulse Resp BP BP Pulse Ox 02/19/24 07:21 37.2 C 77 16 136/70 98 02/19/24 07:00 02/19/24 07:00 75 02/19/24 03:45 37.7 C H 73 18 129/53 L 96 02/18/24 23:52 37.0 C 90 20 152/79 H 97 02/18/24 23:16 70 O2 Del Method 02/19/24 07:21 Room Air 02/19/24 07:00 Room Air 02/19/24 07:00 02/19/24 03:45 Room Air 02/18/24 23:52 Room Air 02/18/24 23:16 Laboratory Results Laboratory Results - last 48 hr 02/15/24 02/18/24 02/19/24 23:17 05:42 05:50 WBC 9.31 10.05 RBC 3.91 L 4.27 L Hgb 7.7 L 8.3 L Hct 25.2 L 27.2 L MCV 64.5 L 63.7 L MCH 19.7 L 19.4 L MCHC 30.6 L 30.5 L RDW Std Deviation 34.0 L 33.5 L RDW Coeff of Joi 14.8 H 15.1 H Plt Count 304 329 MPV 10.3 9.6 Immature Gran % (Auto) 1.1 1.4 Neut % (Auto) 70.4 70.2 Lymph % (Auto) 11.7 13.6 Chaves % (Auto) 12.8 10.3 Eos % (Auto) 3.8 4.0 Baso % (Auto) 0.2 0.5 Neut # (Auto) 6.56 H 7.05 H Lymph # (Auto) 1.09 L 1.37 Chaves # (Auto) 1.19 H 1.04 H Eos # (Auto) 0.35 0.40 Baso # (Auto) 0.02 0.05 Immature Gran # (Auto) 0.10 0.14 Polychromasia 1+ Microcytosis Present Present Spherocytes 1+ Tear Drop Cells 1+ Sodium 139 139 Potassium 3.6 3.7 Chloride 107 107 Carbon Dioxide 23 24 Anion Gap 9 8 BUN 17 17 Creatinine 1.27 1.17 Est Cr Clr Drug Dosing 68.4 74.1 Est GFR ( Amer) 67.8 74.9 Est GFR (Non-Af Amer) 58.5 64.6 BUN/Creatinine Ratio 13.4 14.5 Glucose 106 H 108 H Calcium 8.5 L 8.7 Iron 13 L Unsaturated IBC 102 L Vitamin B12 365 Folate 20.82 Synovial Crystals Random Vancomycin 8.9 L (3) Fever Fever type: unspecified Qualified Code(s): R50.9 - Fever, unspecified
[2024-02-19] MEDS: oxyCODONE/ACETAMINOPHEN 5mg/325mg TAB PO PRN (13:24)
[2024-02-19] MEDS: VANCOMYCIN HCL 1,250 MG in SODIUM CHLORIDE 0.9% 250 ML IV SCH (16:02)
--- NOTE | 2024-02-19 17:55 | Hospitalist Progress Note ---
"Date of Service February 19, 2024 Assessment & Plan (1) Knee swelling: (2) Fever: (3) Prediabetes: (4) Gout: (5) Chronic kidney disease (CKD): (6) Iron deficiency anemia: Plan Left Knee Pain | Fever, Leukocytosis | S/P Meniscus Repair -Last (02/06) had meniscus repair to his left knee -Intermittent fevers and poor PO intake/chills since Sunday -WBC 12.06k, ESR >130, CRP 25.9. Procal negative. -Joint aspiration completed in ED, synovial fluid analysis with 9300K WBC -Received 2g Ceftriaxone in ED, will continue Ceftriaxone and add Vancomycin -MRSA nares negative -oxycodone PRN for pain control -Wound culture on 02/14 on the left leg showed coagulase-negative Staphylococcus. -Left knee wound cultures done on 02/15 during joint aspiration are negative to date. -Given patient's complexity and status post meniscal repair reached out to orthopedics on-call. Orthopedics had no antibiotic recommendations. -Will consult infectious disease for antibiotic recommendations and to see if patient needs IV antibiotics for if we can safely switch over to p.o. antibiotics. -ID recommends to get sensitivities to the prior + wound cultures. CKD -Cr of 1.57 on arrival -Will hold HCTZ -Avoid nephrotoxic medications Gout -Continue allopurinol Depression -Continue duloxetine, trazodone HLD -Continue statin Iron Deficiency Anemia -recommend f/u with PCP. Admission and Anticipated Discharge Date Admission Date: February 16, 2024 Supervising Physician Co-Signing Physician Notes Attending attestation Pt seen and examined in concert with Dr. Bradshaw. In agreement with the documented findings as noted in the resident documentation with any exceptions or additions as noted here. Ongoing left knee pain with current pain medication regimen. On examination, S1/S2 nl RRR no MCG. CTAB. Abd NT/ND BS+ve Wound Cx from 02/14 w/ coag-negative staph L knee pain s/p meniscal repair with concern for intra-articular infection - wound cx +ve, ID consult - continue vancomycin and follow up C/S when available to guide treatment. CKD IIIa - holding HCTZ, avoid nephrotoxic medications where able. Monitor Cr daily Else see resident documentation as noted. Subjective Patient seen beside this AM. No issues or concerns. Review of Systems Review of Systems: All systems reviewed & are unremarkable except as noted in Subjective Physical Exam Physical Exam: Constitutional: well-appearing, no acute distress CV: regular rhythm, no murmur appreciated, extremities well-perfused, no LE edema Resp: CTABL, no wheezes/rales/rhonchi appreciated, no increased work of breathing GI: soft, nondistended, nontender, BS normoactive MSK: L knee wrapped Skin: warm, dry, no rash appreciated Neuro: alert, oriented, no focal neurologic deficit appreciated Results & Data Results & Data Vital Signs (Past 12 Hours) Vital Signs Temp Pulse Pulse Resp BP Pulse Ox O2 Del Method 02/19/24 15:46 37.0 C 67 18 144/74 H 97 Room Air 02/19/24 15:02 69 02/19/24 11:05 37.2 C 86 18 143/73 H 98 Room Air 02/19/24 07:21 37.2 C 77 16 136/70 98 Room Air 02/19/24 07:00 Room Air 02/19/24 07:00 75 (2) Fever Fever type: unspecified Qualified Code(s): R50.9 - Fever, unspecified"
--- NOTE | 2024-02-20 07:15 | Hospitalist Progress Note ---
"Date of Service February 20, 2024 Assessment & Plan (1) Knee swelling: (2) Fever: (3) Prediabetes: (4) Gout: (5) Chronic kidney disease (CKD): (6) Iron deficiency anemia: Plan Left Knee Pain | Fever, Leukocytosis | S/P Meniscus Repair -Last (02/06) had meniscus repair to his left knee -Intermittent fevers and poor PO intake/chills since Sunday -WBC 12.06k, ESR >130, CRP 25.9. Procal negative. -Joint aspiration completed in ED, synovial fluid analysis with 9300K WBC -Received 2g Ceftriaxone in ED, will continue on Vancomycin -MRSA nares negative -oxycodone PRN for pain control -Wound culture on 02/14 on the left leg showed coagulase-negative Stap hylococcus. -Left knee wound cultures done on 02/15 during joint aspiration are negative to date. -Given patient's complexity and status post meniscal repair reached out to orthopedics on-call. Orthopedics had no antibiotic recommendations. -Will consult infectious disease for antibiotic recommendations and to see if patient needs IV antibiotics for if we can safely switch over to p.o. antibiotic s. -ID recommends to get sensitivities to the prior + wound cultures. Will need 4 weeks of abx. Plan to discharge once abx are determine. CKD -Cr of 1.57 on arrival, stable at this time. -Will hold HCTZ -Avoid nephrotoxic medications Gout -Continue allopurinol Depression -Continue duloxetine, trazodone HLD -Continue statin Iron Deficiency Anemia -recommend f/u with PCP. Admission and Anticipated Discharge Date Admission Date: February 16, 2024 Supervising Physician Co-Signing Physician Notes Attending attestation Pt seen and examined in concert with Dr. Bradshaw. In agreement with the documented findings as noted in the resident documentation with any exceptions or additions as noted here. Improved left knee pain with current pain medication regimen. On examination, S1/S2 nl RRR no MCG. CTAB. Abd NT/ND BS+ve Wound Cx from 02/14 w/ coag-negative staph L knee pain s/p meniscal repair with concern for intra-articular infection - wound cx +ve, ID consult - continue vancomycin and follow up C/S when available to guide treatment. CKD IIIa - holding HCTZ, avoid nephrotoxic medications where able. Monitor Cr daily Else see resident documentation as noted. Subjective Patient seen bedside this morning. No issues or concerns at this time. Review of Systems Review of Systems: All systems reviewed & are unremarkable except as noted in Subjective Physical Exam Physical Exam: Constitutional: well-appearing, no acute distress CV: regular rhythm, no murmur appreciated, extremities well-perfused, no LE edema Resp: CTABL, no wheezes/rales/rhonchi appreciated, no increased work of breathing GI: soft, nondistended, nontender, BS normoactive MSK: L knee wrapped Skin: warm, dry, no rash appreciated Neuro: alert, oriented, no focal neurologic deficit appreciated Results & Data Results & Data Vital Signs (Past 12 Hours) Vital Signs Temp Pulse Pulse Resp BP BP Pulse Ox 02/20/24 07:01 67 02/20/24 03:04 36.9 C 74 20 135/63 96 02/19/24 23:40 37.6 C H 74 20 136/79 99 02/19/24 23:35 70 02/19/24 19:42 37.0 C 69 18 151/73 H 99 O2 Del Method 02/20/24 07:01 02/20/24 03:04 Room Air 02/19/24 23:40 Room Air 02/19/24 23:35 02/19/24 19:42 Room Air (2) Fever Fever type: unspecified Qualified Code(s): R50.9 - Fever, unspecified"
[2024-02-20 13:12] LABS: Creatinine Clr Calc Pharmacy 67.8 ml/min; Est GFR (African American) 67.8 ml/min; Est GFR (Non-African American) 58.5 ml/min
--- NOTE | 2024-02-20 13:40 | Pharmacy Report ---
Pharmacy PK ABX Note - Date of Service February 20, 2024 - Assessment and Plan Assessment 64 year old M receiving vancomycin for treatment of left knee infection post recent arthroscopy. Pertinent microbiologic data includes: Negative MRSA Nasal Swab. Blood cultures show no growth at 48 hours, knee culture from 02/14 group coagulase negative Staphylococcus (sensitivities pending). Renal function stable. Day #5 of IV antibiotic therapy. Plan Vancomycin * Current regimen: 1250 mg IV every 12 hours * Random level obtained 02/20/24 resulted as 12.6 mcg/mL. This is predicted to achieve target AUC/MARIO of 400-600 mg/L.hr * Predicted AUC at steady state: 559 mg/L.hr * Continue 1250 mg IV every 12 hours * Will repeat level in the next 48-72 hours if therapy is continued and/or change in patient clinical status Pharmacy will continue to follow and will adjust dose/frequency as necessary. Thank you. Pharmacy has transitioned to AUC monitoring for vancomycin. AUC/MARIO is the preferred PK/PD target and is associated with decreased risk of nephrotoxicity compared to traditional trough targets.
[2024-02-21 07:15] LABS: Basophils # (auto) 0.04 K/uL (0.00-0.20); Basophils % (auto) 0.4 %; Eosinophils % (auto) 4.4 %; Hematocrit (blood only) 28.4 % (42.0-52.0); Hemoglobin 8.9 g/dl (14.0-18.0); Immature Granulocytes # (auto) 0.14 K/uL (0.01-0.20); Immature Granulocytes % (auto) 1.5 %; Lymphocytes % (auto) 15.3 %; Mean Corpuscular Hemoglobin 19.7 pg (25.0-34.0); Mean Corpuscular Hgb Conc 31.3 g/dL (32.0-36.0); Mean Corpuscular Volume 62.8 fL (80.0-100.0); Monocytes # (auto) 1.02 K/uL (0.11-0.59); Monocytes % (auto) 11.1 %; Neutrophils # (auto) 6.17 K/uL (1.40-6.50); Neutrophils % (auto) 67.3 %; RDW Coefficient of Variation 15.2 % (11.5-14.5); RDW Standard Deviation 33.5 fL (36.4-46.3); Red Blood Count 4.52 M/uL (4.70-6.10); White Blood Count 9.17 K/ul (4.8-10.8)
[2024-02-21 07:25] LABS: Mean Platelet Volume 9.5 fL (9.4-12.4); Platelet Count 410 K/uL (130-400)
[2024-02-21 07:30] LABS: BUN Creatinine Ratio 11.6 (10-20); Creatinine Clr Calc Pharmacy 63.9 ml/min; Est GFR (African American) 66.5 ml/min; Est GFR (Non-African American) 57.4 ml/min; Potassium 4.1 mmol/L (3.5-5.1)
[2024-02-21 07:44] LABS: Microcytosis Present; Polychromasia 1+; Tear Drop Cells 1+
--- NOTE | 2024-02-21 07:46 | Discharge Summary ---
"Date of Service February 21, 2024 Discharge Data Allergies Allergy/AdvReac Type Severity Reaction Status Date / Time No Known Allergies Allergy Unverified 02/16/24 02:34 Consultations 02/16/24 01:48 ED Decision to Admit Stat 02/16/24 04:45 Consult Orthopedic Surgery Routine 02/18/24 16:31 Consult Infectious Diseases Routine Procedures Performed Operation Date: 02/16/24 15:00 Actual Procedures p Left Knee Arthroscopy Incision and Drainage(Left) - Bridger Elliott, Hospital Course (1) Knee swelling: (2) Fever: (3) Prediabetes: (4) Gout: (5) Chronic kidney disease (CKD): (6) Iron deficiency anemia: Plan Left Knee Pain | Fever, Leukocytosis | S/P Meniscus Repair -Last (02/06) had meniscus repair to his left knee -Intermittent fevers and poor PO intake/chills since Sunday -WBC 12.06k, ESR >130, CRP 25.9. Procal negative. -Joint aspiration completed in ED, synovial fluid analysis with 9300K WBC -Received 2g Ceftriaxone in ED, will continue on Vancomycin -MRSA nares negative -oxycodone PRN for pain control -Wound culture on 02/14 on the left leg showed coagulase-negative Staphylococcus. -Left knee wound cultures done on 02/15 during joint aspiration are negative to date. -Given patient's complexity and status post meniscal repair reached out to orthopedics on-call. Orthopedics had no antibiotic recommendations. -Will consult infectious disease for antibiotic recommendations and to see if patient needs IV antibiotics for if we can safely switch over to p.o. antibiotics. -ID recommends to get sensitivities to the prior + wound cultures. Will need 4 weeks of abx. Plan to discharge once abx are determine. CKD -Cr of 1.57 on arrival, stable at this time. -Will hold HCTZ -Avoid nephrotoxic medications Gout -Continue allopurinol Depression -Continue duloxetine, trazodone HLD -Continue statin Iron Deficiency Anemia -recommend f/u with PCP. Discharge Plan Discharge Items Patient Disposition: Home - Self-Care Reason For Visit: KNEE PAIN Discharge Diagnosis: Left postoperative knee infection Condition on Discharge: Good Activity: Resume your previous activity Non-emergency contact: Primary Care Provider Call non-emergency contact if: you have any medication questions, your pain is concerning for you and your temperature is above 101.5 Follow-up/Referrals: Katie Persaud MD [Primary Care Provider] - Bridger Elliott DO [Physician] - Diet: Low Sodium (2gm) Addtl Attending Provider Instructions: You were admitted to the hospital for left postoperative knee infection. You were treated with antibiotics and got better. A discharge summary will be sent to your primary care physician to ensure continuity of care. Please bring this discharge summary with you to your next office appointment so that your provider can review it at that time. Follow-up appointments: * Make a follow-up appointment with your PCP within the next week. It is very important that you follow up with them shortly after discharge from the hospital. * You have a follow up appointment on Sunday with Dr. Elliott, Please keep this appointment and call the office if you are unable to make tht appointment. * Keep all your follow-up appointments as already scheduled. If you cannot make an appointment, notify your provider. Medications: Your medication list has been reviewed and reconciled upon discharge to ensure accuracy and continuity of care. An updated list of all your medications is included with your hospital discharge paperwork. Please review this list closely, and make note of any changes. * We sent a new medication called * [med name] to your pharmacy. Take [med name] ([dose]mg) [number of tablets] [frequency] [for _ days]. * We sent a new medication called [med name] to your pharmacy. Take [med name] ([dose]mg) [number of tablets] [frequency] [for _ days]. * We sent a new medication called [med name] to your pharmacy. Take [med name] ([dose]mg) [number of tablets] [frequency] [for _ days]. * If you have any issues filling these prescriptions, please call [phone] and ask to leave a message for Dr. Bradshaw. * Take your medications as instructed; do not skip a dose of your medicines. Make sure all of your doctors know every medicine you are taking (including [place] medicines, vitamins, and supplements). Call your primary care provider before taking any new medicines (including over- the-counter medicines, vitamins, and supplements), because some of these may interact with your current medications, or may make your symptoms worse. Tell your primary care provider if you cannot afford your medications. CONTACT YOUR PRIMARY CARE PROVIDER if you experience any of the following: * Worsening of symptoms * Fever, chills, or fatigue * Difficulty following your treatment plan, or difficulty taking medications CALL 911 OR GO TO THE EMERGENCY DEPARTMENT if you experience any of the following: * Sudden, severe abdominal pain or nausea/vomiting * Severe chest pain, or chest pain that radiates (moves) to your jaw or arm * Sudden, severe shortness of breath or difficulty breathing Thank you for allowing us to participate in your care. Pending Studies at Discharge: No Stand-Alone Forms: My [facility], Smoking Cessation Medications and DC Order Prescriptions: Continued hydrochlorothiazide 25 mg tablet 25 mg PO DAILY Qty: 90 1RF atorvastatin 20 mg tablet 20 mg PO DAILY Qty: 90 1RF omeprazole 40 mg capsule,delayed release(DR/EC) 40 mg PO QDAY Qty: 30 1RF tamsulosin 0.4 mg capsule 0.4 mg PO DAILY Qty: 90 3RF tadalafil 20 mg tablet 20 mg PO DAILY PRN (Reason: sexual activity) Qty: 10 5RF Rx Instructions: administer approximately 30min before sexual activity; do not use more than 1 dose per 24hrs aspirin 81 mg tablet,delayed release (DR/EC) 81 mg PO DAILY triamcinolone acetonide 0.1 % ointment 1 applic topical BID PRN (Reason: ..) docusate sodium 100 mg Capsule 100 mg PO DAILY allopurinol 100 mg tablet 100 mg PO DAILY Rx Instructions: TAKE ONE TABLET BY MOUTH EVERY DAY trazodone 150 mg tablet 150 mg PO HS Rx Instructions: TAKE ONE TABLET BY MOUTH EVERY DAY duloxetine 60 mg capsule,delayed release(DR/EC) 60 mg PO DAILY Rx Instructions: TAKE ONE CAPSULE BY MOUTH EVERY DAY Admission Data Admit Date/Time: 02/16/24 02:32 Attending Provider: Daniel Alvarez Admit Provider: Yancy Moody Primary Care Provider: Katie Persaud Other Providers: Susy Peña; Bridger Elliott; Hayley Flores; Lima Luciano; Sterling Russo; Stephania Chacon; Eileen Peters; Edith Leger; Sheryl Collins; Celina Hurtado Supervising Physician Co-Signing Physician Notes Attending attestation Pt seen and examined in concert with Dr. Bradshaw. In agreement with the documented findings as noted in the resident documentation with any exceptions or additions as noted here. Ongoing left knee pain with current pain medication regimen. Reports no fever, chills, lower extremity swelling, rashes or other pain. On examination, S1/S2 nl RRR no MCG. CTAB. Abd NT/ND BS+ve Wound Cx from 02/14 w/ coag-negative staph L knee pain s/p meniscal repair with concern for intra-articular infection - wound cx +ve, ID consult - PICC line for IV abx to complete course as above, can consider transition after 3 wks to PO to complete course per PCP recommendations following conversation with ID. Case management aware and coordinating abx therapy for home. CKD IIIa - avoid nephrotoxic medications where able Else see resident documentation as noted. Total attending physician time spent with this patient's care on the day of discharge: 35 minutes."
--- NOTE | 2024-02-21 08:43 | Infectious Disease Progress Nt ---
Date of Service February 21, 2024 Assessment & Plan (1) Status post arthroscopic knee surgery: (2) Knee swelling: (3) Fever: Plan #L knee intra-articular infection s/p aspiration on 02/14 and I+D on 02/15 # Prior meniscus repair 64 yo M with h/o CKD, HLD, gout, prediabetes, left knee arthroscopy 1 week prior to presentation (02/07/24) for DJD admitted to [facility] with left knee pain and fevers. ID is consulted for c/f septic arthritis. Patient underwent meniscus repair for his left knee on 02/06. A few days post op, he developed fevers. Temperatures up to 101.7F and has felt generally unwell with chills, poor appetite (has lost ~10 pounds in the same time frame), and increased knee pain, directed to ED. On admission, temp 37.9 Labs notable for WBC 12.06, Hgb 10.4, plt 385 ESR >130, CRP 25.9 low potassium and sodium. Cr 1.57 (baseline 1.4), UA 3+blood. 02/14 blood cultures ng, Xray of left knee showed OA and small/mod joint effusion. He underwent left knee aspiration in ER with 93K wbcs, 93% pmns, 100K rbcs. Synovial cx growing 2 different colonies of CoNS (no sensi) 02/15 he was taken to OR with Dr. Elliott for I+D of left knee. OR notes 20 cc of blood-tinged and slightly cloudy fluid that came out of the joint synovial fluid 70K 95% pmns, 200K rbcs, synovial cultures gram stain many wbcs, no organisms, no growth, final MRSA nares neg Discussion: I called and spoke with Micro, there are no colonies of CoNS growth. They are adding sensi and should be available 02/19 or 02/20, we can adjust abx accordingly Recommend C/W Vancomycin, pharm following levels Await sensi update by micro Anticipate 4 week therapy (no hardware) 02/15-03/[address], pending our abx choice, I will update note once these cultures have returned. ID will follow Stephania Chacon MD Infectious Diseases [facility], [facility] Admission and Anticipated Discharge Date Admission Date: February 16, 2024 Subjective Subsequent visit was provided via telemedicine using two-way real-time interactive telecommunication between the patient and the telemedicine provider. For the duration of the visit, the provider was performing the assessment from a different facility than the patient. This includesuse of bluetooth stethoscope forauscultationperformed by the telepresenter that the telemedicine provider can hear if described in the physical exam. Multimedia Technician contact information: Please call [facility] Call Center [phone]. (Phone Number For Physician Use Only) After establishing a telemedicine visit, patient was: Patient was verified with two unique identifiers, Patient/authorized rep acknowledged consent and understanding and Gave permission to continue telehealth session Time Spent with Patient: Subsequent => 35 min Physical Exam Physical Exam: NAD L knee, mild swelling, minimal warmth able flex/extend sutures in place no drainage or openings Results & Data Vital Signs (Past 12 Hours) Vital Signs Temp Pulse Pulse Pulse Resp BP BP 02/21/24 07:35 37.1 C 73 18 142/75 H 02/21/24 07:15 02/21/24 07:01 64 02/21/24 04:02 37.0 C 70 18 141/74 H 02/21/24 00:00 37.1 C 77 18 137/66 02/20/24 22:00 71 Pulse Ox O2 Del Method 02/21/24 07:35 97 Room Air 02/21/24 07:15 Room Air 02/21/24 07:01 02/21/24 04:02 96 Room Air 02/21/24 00:00 96 Room Air 02/20/24 22:00 Laboratory Results Laboratory Results - last 48 hr 02/20/24 02/21/24 12:27 06:50 WBC 9.17 RBC 4.52 L Hgb 8.9 L Hct 28.4 L MCV 62.8 L MCH 19.7 L MCHC 31.3 L RDW Std Deviation 33.5 L RDW Coeff of Joi 15.2 H Plt Count 410 H MPV 9.5 Immature Gran % (Auto) 1.5 Neut % (Auto) 67.3 Lymph % (Auto) 15.3 Mchenry % (Auto) 11.1 Eos % (Auto) 4.4 Baso % (Auto) 0.4 Neut # (Auto) 6.17 Lymph # (Auto) 1.40 Mchenry # (Auto) 1.02 H Eos # (Auto) 0.40 Baso # (Auto) 0.04 Immature Gran # (Auto) 0.14 Polychromasia 1+ Microcytosis Present Tear Drop Cells 1+ Sodium 139 Potassium 4.1 Chloride 104 Carbon Dioxide 27 Anion Gap 8 BUN 15 Creatinine 1.27 1.29 Est Cr Clr Drug Dosing 67.8 63.9 Est GFR ( Amer) 67.8 66.5 Est GFR (Non-Af Amer) 58.5 57.4 BUN/Creatinine Ratio 11.6 Glucose 108 H Calcium 9.0 Random Vancomycin 12.6 Microbiology 02/15/24 23:17 Knee Gram Stain - Final 02/15/24 23:17 Knee Aerobic and Anaerobic Culture - Preliminary Coag neg staph not lugdunensis Coag negative Staphylococcus#2 02/15/24 22:19 Blood Aerobic Blood Culture - Final No growth in Aerobic bottle after 5 days. 02/15/24 22:19 Blood Anaerobic Blood Culture - Final No growth in Anaerobic bottle after 5 days. 02/15/24 22:19 Blood Aerobic Blood Culture - Final No growth in Aerobic bottle after 5 days. 02/15/24 22:19 Blood Anaerobic Blood Culture - Final No growth in Anaerobic bottle after 5 days. 02/16/24 Unknown Knee Gram Stain - Final 02/16/24 Unknown Knee Aerobic and Anaerobic Culture - Preliminary No growth to date. 02/16/24 Unknown Knee,Left Gram Stain - Final 02/16/24 Unknown Knee,Left Aerobic and Anaerobic Culture - Preliminary No growth to date. Medications Administered Current Inpatient Medications Acetaminophen (Acetaminophen 325 Mg Tab) 650 mg PO Q4H PRN PRN Reason: Pain or Fever Stop: 03/17/24 21:04 Last Admin: 02/20/24 21:15 Dose: 650 mg Allopurinol (Allopurinol 100 Mg Tab) 100 mg PO DAILY [facility] Stop: 03/17/24 08:59 Last Admin: 02/20/24 07:31 Dose: 100 mg Aspirin (Aspirin 81 Mg Ectab) 81 mg PO DAILY [facility] Stop: 03/17/24 08:59 Last Admin: 02/20/24 07:31 Dose: 81 mg Atorvastatin Calcium (Atorvastatin 20 Mg Tab) 20 mg PO DAILY [facility] Stop: 03/17/24 08:59 Last Admin: 02/20/24 07:31 Dose: 20 mg Duloxetine HCl (Duloxetine Hcl 60 Mg Cap) 60 mg PO DAILY [facility] Stop: 03/17/24 08:59 Last Admin: 02/20/24 07:31 Dose: 60 mg Vancomycin HCl 1,250 mg/ (Sodium Chloride) 275 mls @ 200 mls/hr IV Q12H NOAH Stop: 02/26/24 15:59 Last Infusion: 02/21/24 04:08 Dose: Infused Miscellaneous Information (Vancomycin Consult Active) 1 each N/A UD PRN PRN Reason: Consult Stop: 03/17/24 04:44 Ondansetron HCl (Ondansetron Inj 2 Mg/Ml 2 Ml Vial) 4 mg IV Q6H PRN PRN Reason: Nausea Stop: 03/17/24 04:44 Oxycodone/Acetaminophen (Oxycodone/Acetaminophen 5mg/325mg Tab) 1 tab PO Q4H PRN PRN Reason: Pain Stop: 03/04/24 12:25 Last Admin: 02/21/24 07:11 Dose: 1 tab Pantoprazole Sodium (Pantoprazole 40 Mg Tab) 40 mg PO DAILY NOAH Stop: 03/17/24 08:59 Last Admin: 02/20/24 07:31 Dose: 40 mg Polyethylene Glycol (Polyethylene (Miralax) 17 Gm Pack) 17 gm PO DAILY PRN PRN Reason: Constipation Stop: 03/17/24 04:44 Tamsulosin HCl (Tamsulosin Hcl 0.4 Mg Cap) 0.4 mg PO DAILY NOAH Stop: 03/17/24 08:59 Last Admin: 02/20/24 07:31 Dose: 0.4 mg Trazodone HCl (Trazodone Hcl 50 Mg Tab) 150 mg PO HS NOAH Stop: 03/19/24 21:14 Last Admin: 02/20/24 21:12 Dose: 150 mg (3) Fever Fever type: unspecified Qualified Code(s): R50.9 - Fever, unspecified
[2024-02-21] MEDS: ceFAZolin 2000MG 2,000 MG/15 ML SYR IV SCH (11:56)
--- NOTE | 2024-02-21 12:08 | Orthopedic Progress Note ---
Date of Service February 21, 2024 Assessment & Plan (1) Infection of left knee: Plan: Patient admitted on 02/16/2024 with postoperative infection left knee status post left knee arthroscopy by Dr. Gan 10 days prior to admission. Patient was admitted under medical service and patient underwent left knee arthroscopic I&D by Dr. Elliott on 02/16/2024. Patient was started on IV antibiotics and has progressively gotten better. Patient is currently waiting for his PICC line placement. Infectious disease has given their final input noted below. Plans for IV cefazolin 3 times a day for 3 to 4 weeks. Discussed orthopedic follow-up with the patient today. He is scheduled to see Du Agosto PA-C, Dr. Gan' PA on 02/25/2024 at noon for his first post operative visit. Patient to call the office with any further problems. DC to home per Med Service when PICC line placed and home antibx arranged. ID Addendum February 21, 2024 10:39 Cx showing 2 Staph Lugdunensis CoNS sensi have returned and both are Oxacillin Sensitive Therefore can narrow to Cefazolin 2G IV TID and dc vancomycin Would recommend treatment for a total fo 4 weeks from I+D through 03/14/24 with weekly CBC with diff, CMP, ESR, CRP Would recommend follow up with and ID physician Typically at week 3 we can change to po this would be at discretion of outpatient physician (would consider high dose beta lactam) however if not established would keep on treatment with Cefazolin through rest of course I spoke with patient, (on phone) and primary team re my recommendation, D/w patient and monitoring of midline and AEs to abx ID will s/o Please call w questions Stephania Chacon MD Infectious Diseases Admission and Anticipated Discharge Date Admission Date: February 16, 2024 Subjective Patient is a 64-year-old male whom I found out just today was hospitalized, who underwent left knee arthroscopy by Dr. Gan approximately 14 days ago. Patient states that he began developing fevers and chills postoperatively and the symptoms continued throughout the week. He began having left knee pain that beg an increased and he states he had trouble with weightbearing and bending the knee. It became increasingly swollen and he came to the emergency room. He was admitted with infection of his left knee. Patient was then taken under the care of Dr. Elliott who did an irrigation and debridement via arthroscopy of the left knee. Patient tolerated this well. He was started on IV antibiotics thereafter . Currently the patient is feeling well. States he feels so much better after having the arthroscopy and the antibiotics. No complaints today. Patient states that he is getting a PICC line today. Physical Exam Physical Exam: Left knee has 2 arthroscopy incisions that are sutured and healing well. There is no overt erythema. He has minimal swelling. He is able to take the knee through gentle active and passive range of motion without difficulty. Calves are soft nontender. Neurovascular intact. Results & Data Vital Signs (Past 12 Hours) Vital Signs Temp Pulse Pulse Pulse Resp BP BP 02/21/24 11:15 36.8 C 96 H 18 157/80 H 02/21/24 07:35 37.1 C 73 18 142/75 H 02/21/24 07:15 02/21/24 07:01 64 02/21/24 04:02 37.0 C 70 18 141/74 H 02/21/24 00:00 37.1 C 77 18 137/66 Pulse Ox O2 Del Method 02/21/24 11:15 96 Room Air 02/21/24 07:35 97 Room Air 02/21/24 07:15 Room Air 02/21/24 07:01 02/21/24 04:02 96 Room Air 02/21/24 00:00 96 Room Air
--- NOTE | 2024-02-21 16:57 | Hospitalist Progress Note ---
"Date of Service February 21, 2024 Assessment & Plan (1) Knee swelling: (2) Fever: (3) Prediabetes: (4) Gout: (5) Chronic kidney disease (CKD): (6) Iron deficiency anemia: Plan Left Knee Pain | Fever, Leukocytosis | S/P Meniscus Repair -Last (02/06) had meniscus repair to his left knee -Intermittent fevers and poor PO intake/chills since Sunday -WBC 12.06k, ESR >130, CRP 25.9. Procal negative. -Joint aspiration completed in ED, synovial fluid analysis with 9300K WBC -Received 2g Ceftriaxone in ED, will continue on Vancomycin -MRSA nares negative -oxycodone PRN for pain control -Wound culture on 02/14 on the left leg showed coagulase-negative Stap hylococcus. -Left knee wound cultures done on 02/15 during joint aspiration are negative to date. -Given patient's complexity and status post meniscal repair reached out to orthopedics on-call. Orthopedics had no antibiotic recommendations. -Will consult infectious disease for antibiotic recommendations and to see if patient needs IV antibiotics for if we can safely switch over to p.o. antibiotic s. -ID recommends: -Cx showing 2 Staph Lugdunensis -CoNS sensi have returned and both are Oxacillin Sensitive -Cefazolin 2g IV TID, tx for 4 weeks. Weekly CBC with diff, CMP, ESR, and CRP. -f/u with ID physician, may DC at week 3 to oral. -Will place midline and plan to DC tomorrow, case management helping to arrange outpatient care. CKD -Cr of 1.57 on arrival, stable at this time. -Will hold HCTZ -Avoid nephrotoxic medications Gout -Continue allopurinol Depression -Continue duloxetine, trazodone HLD -Continue statin Iron Deficiency Anemia -recommend f/u with PCP. Admission and Anticipated Discharge Date Admission Date: February 16, 2024 Subjective Patient was seen bedside this AM. He is feeling well and as no issues or co ncerns at this time. Review of Systems Review of Systems: All systems reviewed & are unremarkable except as noted in Subjective Physical Exam Physical Exam: Constitutional: well-appearing, no acute distress CV: regular rhythm, no murmur appreciated, extremities well-perfused, no LE edema Resp: CTABL, no wheezes/rales/rhonchi appreciated, no increased work of breathing GI: soft, nondistended, nontender, BS normoactive MSK: L knee wrapped Skin: warm, dry, no rash appreciated Neuro: alert, oriented, no focal neurologic deficit appreciated Results & Data Results & Data Vital Signs (Past 12 Hours) Vital Signs Temp Pulse Pulse Resp BP Pulse Ox O2 Del Method 02/21/24 15:29 37.2 C 76 18 130/74 97 Room Air 02/21/24 14:56 92 H 02/21/24 11:15 36.8 C 96 H 18 157/80 H 96 Room Air 02/21/24 07:35 37.1 C 73 18 142/75 H 97 Room Air 02/21/24 07:15 Room Air 02/21/24 07:01 64 (2) Fever Fever type: unspecified Qualified Code(s): R50.9 - Fever, unspecified"
--- NOTE | 2024-02-22 06:57 | Discharge Summary ---
"Date of Service February 22, 2024 Discharge Data Allergies Allergy/AdvReac Type Severity Reaction Status Date / Time No Known Allergies Allergy Unverified 02/16/24 02:34 Consultations 02/16/24 01:48 ED Decision to Admit Stat 02/16/24 04:45 Consult Orthopedic Surgery Routine 02/18/24 16:31 Consult Infectious Diseases Routine Procedures Performed Operation Date: 02/16/24 15:00 Actual Procedures p Left Knee Arthroscopy Incision and Drainage(Left) - Bridger Elliott, Hospital Course (1) Knee swelling: (2) Fever: (3) Prediabetes: (4) Gout: (5) Chronic kidney disease (CKD): (6) Iron deficiency anemia: Plan Left Knee Pain | Fever, Leukocytosis | S/P Meniscus Repair -Last (02/06) had meniscus repair to his left knee -Intermittent fevers and poor PO intake/chills since Sunday -WBC 12.06k, ESR >130, CRP 25.9. Procal negative. -Joint aspiration completed in ED, synovial fluid analysis with 9300K WBC -Received 2g Ceftriaxone in ED, will continue on Vancomycin -MRSA nares negative -oxycodone PRN for pain control -Wound culture on 02/14 on the left leg showed coagulase-negative Staphylococcus. -Left knee wound cultures done on 02/15 during joint aspiration are negative to date. -Given patient's complexity and status post meniscal repair reached out to orthopedics on-call. Orthopedics had no antibiotic recommendations. -Will consult infectious disease for antibiotic recommendations and to see if patient needs IV antibiotics for if we can safely switch over to p.o. antibiotics. -ID recommends: -Cx showing 2 Staph Lugdunensis -CoNS sensi have returned and both are Oxacillin Sensitive -Cefazolin 2g IV TID, tx for 4 weeks. Weekly CBC with diff, CMP, ESR, and CRP. -f/u with ID physician, may DC at week 3 to oral. -Will place midline and plan to DC tomorrow, case management helping to arrange outpatient care. CKD -Cr of 1.57 on arrival, stable at this time. -Will hold HCTZ -Avoid nephrotoxic medications Gout -Continue allopurinol Depression -Continue duloxetine, trazodone HLD -Continue statin Iron Deficiency Anemia -recommend f/u with PCP. Discharge Plan Discharge Items Patient Disposition: Home - Self-Care Reason For Visit: KNEE PAIN Discharge Diagnosis: Left postoperative knee infection Condition on Discharge: Good Activity: Resume your previous activity Non-emergency contact: Primary Care Provider Call non-emergency contact if: you have any medication questions, your pain is concerning for you and your temperature is above 101.5 Follow-up/Referrals: Katie Persaud MD [Primary Care Provider] - Bridger Elliott DO [Physician] - 02/25/24 12:00 pm Diet: Low Sodium (2gm) Addtl Attending Provider Instructions: You were admitted to the hospital for left postoperative knee infection. You were treated with antibiotics and got better. A discharge summary will be sent to your primary care physician to ensure continuity of care. Please bring this discharge summary with you to your next office appointment so that your provider can review it at that time. Follow-up appointments: * Make a follow-up appointment with your PCP within the next week. It is very important that you follow up with them shortly after discharge from the hospital. * You have a follow up appointment on Sunday with Dr. Elliott, Please keep this appointment and call the office if you are unable to make tht appointment. * Keep all your follow-up appointments as already scheduled. If you cannot make an appointment, notify your provider. Medications: Your medication list has been reviewed and reconciled upon discharge to ensure accuracy and continuity of care. An updated list of all your medications is included with your hospital discharge paperwork. Please review this list closely, and make note of any changes. * We sent a new medication called * [med name] to your pharmacy. Take [med name] ([dose]mg) [number of tablets] [frequency] [for _ days]. * We sent a new medication called [med name] to your pharmacy. Take [med name] ([dose]mg) [number of tablets] [frequency] [for _ days]. * We sent a new medication called [med name] to your pharmacy. Take [med name] ([dose]mg) [number of tablets] [frequency] [for _ days]. * If you have any issues filling these prescriptions, please call [phone] and ask to leave a message for Dr. Bradshaw. * Take your medications as instructed; do not skip a dose of your medicines. Make sure all of your doctors know every medicine you are taking (including [id number] medicines, vitamins, and supplements). Call your primary care provider before taking any new medicines (including over- the-counter medicines, vitamins, and supplements), because some of these may interact with your current medications, or may make your symptoms worse. Tell your primary care provider if you cannot afford your medications. CONTACT YOUR PRIMARY CARE PROVIDER if you experience any of the following: * Worsening of symptoms * Fever, chills, or fatigue * Difficulty following your treatment plan, or difficulty taking medications CALL 911 OR GO TO THE EMERGENCY DEPARTMENT if you experience any of the following: * Sudden, severe abdominal pain or nausea/vomiting * Severe chest pain, or chest pain that radiates (moves) to your jaw or arm * Sudden, severe shortness of breath or difficulty breathing Thank you for allowing us to participate in your care. Pending Studies at Discharge: No Stand-Alone Forms: My [facility], Smoking Cessation Medications and DC Order Prescriptions: Continued hydrochlorothiazide 25 mg tablet 25 mg PO DAILY Qty: 90 1RF atorvastatin 20 mg tablet 20 mg PO DAILY Qty: 90 1RF omeprazole 40 mg capsule,delayed release(DR/EC) 40 mg PO QDAY Qty: 30 1RF tamsulosin 0.4 mg capsule 0.4 mg PO DAILY Qty: 90 3RF tadalafil 20 mg tablet 20 mg PO DAILY PRN (Reason: sexual activity) Qty: 10 5RF Rx Instructions: administer approximately 30min before sexual activity; do not use more than 1 dose per 24hrs aspirin 81 mg tablet,delayed release (DR/EC) 81 mg PO DAILY triamcinolone acetonide 0.1 % ointment 1 applic topical BID PRN (Reason: ..) docusate sodium 100 mg Capsule 100 mg PO DAILY allopurinol 100 mg tablet 100 mg PO DAILY Rx Instructions: TAKE ONE TABLET BY MOUTH EVERY DAY trazodone 150 mg tablet 150 mg PO HS Rx Instructions: TAKE ONE TABLET BY MOUTH EVERY DAY duloxetine 60 mg capsule,delayed release(DR/EC) 60 mg PO DAILY Rx Instructions: TAKE ONE CAPSULE BY MOUTH EVERY DAY Admission Data Admit Date/Time: 02/16/24 02:32 Attending Provider: Freddy Horne Admit Provider: Heidy,Yancy M. Primary Care Provider: Katie Persaud Other Providers: Susy Peña; Bridger Elliott; Hayley Flores; Lima Luciano; Sterling Russo; Stephania Chacon; Eileen Peters; Edith Leger; Sheryl Collins; Celina Hurtado"
[2024-02-22 07:20] LABS: Hematocrit (blood only) 29.2 % (42.0-52.0); Hemoglobin 8.9 g/dl (14.0-18.0); Mean Corpuscular Hemoglobin 19.8 pg (25.0-34.0); Mean Corpuscular Hgb Conc 30.5 g/dL (32.0-36.0); Mean Corpuscular Volume 64.9 fL (80.0-100.0); Mean Platelet Volume 9.5 fL (9.4-12.4); Platelet Count 418 K/uL (130-400); RDW Coefficient of Variation 15.1 % (11.5-14.5)
[2024-02-22 07:33] LABS: BUN Creatinine Ratio 13.1 (10-20); Calcium 9.2 mg/dl (8.6-10.3); Creatinine Clr Calc Pharmacy 60.3 ml/min; Est GFR (African American) 61.9 ml/min; Est GFR (Non-African American) 53.4 ml/min; Potassium 4.3 mmol/L (3.5-5.1)
--- NOTE | 2024-02-22 15:18 | Hospitalist Progress Note ---
"Date of Service February 22, 2024 Assessment & Plan (1) Knee swelling: (2) Prediabetes: (3) Gout: (4) Chronic kidney disease (CKD): (5) Iron deficiency anemia: Plan Left Knee Pain | Fever, Leukocytosis | S/P Meniscus Repair -Last (02/06) had meniscus repair to his left knee -Intermittent fevers and poor PO intake/chills since Sunday -WBC 12.06k, ESR >130, CRP 25.9. Procal negative. -Joint aspiration completed in ED, synovial fluid analysis with 9300K WBC -Received 2g Ceftriaxone in ED, will continue on Vancomycin -MRSA nares negative -oxycodone PRN for pain control -Wound culture on 02/14 on the left leg showed coagulase-negative Staphylococcus. -Left knee joint aspirate cultures 02/15 negative -Given patient's complexity and status post meniscal repair reached out to orthopedics on-call. Orthopedics had no antibiotic recommendations. -ID consulted recommends: -Cx showing 2 Staph Lugdunensis -CoNS all Oxacillin Sensitive -Cefazolin 2g IV TID, tx for 4 weeks. Weekly CBC with diff, CMP, ESR, and CRP. -f/u with ID physician, may DC at week 3 to oral. -picc line consent obtained, ordered placement, case management helping to arrange outpatient care. CKD -Cr of 1.57 on arrival, stable at this time. -Will hold HCTZ -Avoid nephrotoxic medications Gout -Continue allopurinol Depression -Continue duloxetine, trazodone HLD -Continue statin Iron Deficiency Anemia -recommend f/u with PCP. Admission and Anticipated Discharge Date Admission Date: February 16, 2024 Supervising Physician Co-Signing Physician Notes ATTESTATION I also saw the patient and confirmed mueller portions of the history and exam. I agree with the impression and plan in the resident documentation, and as summarized below. EXAM 121/74, 83, 16, 36.7, 90% room air Heart regular rate Lungs clear with nonlabored respirations DATA Labs Hemoglobin 8.9, platelet count 418 Sodium 137, potassium 4.3, BUN 18, creatinine 1.37 Micro Knee cultures from 02/16/2024 show no growth, final IMPRESSION & PLAN Left knee intra-articular infection status post aspiration 02/14, I&D 02/15 Appreciate orthopedics and ID consultation Case management working on home IV antibiotics Hopeful discharge tomorrow pending logistics Additional per resident documentation Subjective Patient seen at bedside, calm comfortable cooperative. Currently awaiting shipment of antibiotics, patient aware. Obtained consent for picc line. Physical Exam Constitutional: WD/WN, vitals as above Eyes: PERRL, conjunctivae normal, anicteric sclerae ENMT: external ear and nose normal, oropharynx normal Neck: trachea midline, no thyromegaly Respiratory: normal respiratory effort, lungs clear to auscultation Cardiovascular: RRR, no murmur, no edema Skin: no rashes, warm and dry Results & Data Results & Data Vital Signs (Past 12 Hours) Vital Signs Temp Pulse Pulse Resp BP Pulse Ox O2 Del Method 02/22/24 11:25 36.7 C 82 16 116/75 94 Room Air 02/22/24 07:40 36.8 C 106 H 16 124/74 98 Room Air 02/22/24 07:21 71 Resident Activity Tracking Resident Involvement: Resident Care Provided Care Provided: Adult Hospital Medicine"
[2024-02-23 07:44] LABS: Est GFR (African American) 59.2 ml/min; Est GFR (Non-African American) 51.1 ml/min
--- NOTE | 2024-02-23 13:05 | Discharge Summary ---
"Date of Service February 23, 2024 Principal Diagnosis Left knee infection Discharge Exam Constitutional: well-appearing, no acute distress CV: regular rhythm, no murmur appreciated, extremities well-perfused, no LE edema Resp: CTABL, no wheezes/rales/rhonchi appreciated, no increased work of breathing GI: soft, nondistended, nontender, BS normoactive MSK: L knee wrapped Skin: warm, dry, no rash appreciated Neuro: alert, oriented, no focal neurologic deficit appreciated Discharge Data Allergies Allergy/AdvReac Type Severity Reaction Status Date / Time No Known Allergies Allergy Unverified 02/16/24 02:34 Consultations 02/16/24 01:48 ED Decision to Admit Stat 02/16/24 04:45 Consult Orthopedic Surgery Routine 02/18/24 16:31 Consult Infectious Diseases Routine Procedures Performed Operation Date: 02/16/24 15:00 Actual Procedures p Left Knee Arthroscopy Incision and Drainage(Left) - Bridger Elliott, Hospital Course (1) Knee swelling: (2) Prediabetes: (3) Gout: (4) Chronic kidney disease (CKD): (5) Iron deficiency anemia: Plan Left Knee Pain | Fever, Leukocytosis | S/P Meniscus Repair -Last (02/06) had meniscus repair to his left knee -Intermittent fevers and poor PO intake/chills since Sunday -WBC 12.06k, ESR >130, CRP 25.9. Procal negative. -Joint aspiration completed in ED, synovial fluid analysis with 9300K WBC -Received 2g Ceftriaxone in ED, will continue on Vancomycin -MRSA nares negative -oxycodone PRN for pain control -Wound culture on 02/14 on the left leg showed coagulase-negative Staphylococcus. -Left knee joint aspirate cultures 02/15 negative -Given patient's complexity and status post meniscal repair reached out to orthopedics on-call. Orthopedics had no antibiotic recommendations. -ID consulted recommends: -Cx showing 2 Staph Lugdunensis -CoNS all Oxacillin Sensitive -Cefazolin 2g IV TID, tx for 4 weeks. Weekly CBC with diff, CMP, ESR, and CRP. -f/u with ID physician, may DC at week 3 to oral. -picc line consent obtained, ordered placement, case management helping to arrange outpatient care. Summary: Patient presented to the hospital for concern of fever and left knee swelling status post meniscal repair on 02/26. Workup had demonstrated knee infection with cultures growing back Staphylococcus lugdunensis. This species was found to be oxacillin sensitive and for this reason it was determined the patient to be discharged on cefazolin 2 g IV 3 times daily for 4 weeks via PICC line. However after 3 weeks, the IV antibiotics can be converted to oral antibiotics to a high-dose beta-lactam by PCP, however, if this cannot be done, the IV antibiotics have been ordered for 4 weeks. Infectious disease was consulted and made this recommendation. While receiving the 4 weeks of antibiotics, patient should receive CBC with differential, CMP, ESR, and CRP weekly after discharge. A referral to an infectious disease doctor outpatient has been made and should follow-up after discharge. Patient already has PCP follow-up scheduled. A referral to orthopedics was also made to follow-up regarding left knee meniscus repair with sequential infection. CKD -Cr of 1.57 on arrival, stable at this time. -Will hold HCTZ -Avoid nephrotoxic medications Gout -Continue allopurinol Depression -Continue duloxetine, trazodone HLD -Continue statin Iron Deficiency Anemia -recommend f/u with PCP. Total Time Total Time Spent Total Time Spent (In Minutes): I spent 30 minutes seeing the patient, sending prescription to the pharmacy, reviewing data, and documentation Discharge Plan Discharge Items Patient Disposition: Home - Self-Care Reason For Visit: KNEE PAIN Discharge Diagnosis: Left postoperative knee infection Condition on Discharge: Good Activity: Resume your previous activity Non-emergency contact: Primary Care Provider Call non-emergency contact if: you have any medication questions, your pain is concerning for you and your temperature is above 101.5 Follow-up/Referrals: Katie Persaud MD [Primary Care Provider] - Bridger Elliott DO [Physician] - 02/25/24 12:00 pm Diet: Low Sodium (2gm) Addtl Attending Provider Instructions: On 02/16/2024, you came to the hospital for evaluation of left knee pain and swelling as well as fever status post meniscal repair on 02/06. While you are here, it is found that you had infection of your left knee. You were started on antibiotics which seem to have made your symptoms better. Cultures of the infection were taken which allowed us to narrow your antibiotic regimen to a medication called cefazolin (Ancef). Now that we have narrowed down the antibiotic that you need to take, you have been given a PICC line to be given antibiotics at home. You will receive cefazolin 3 times a day for a total of 4 weeks and thereafter will have your PICC line removed. During that time, you will have weekly blood work starting next week to monitor your infection. At this point, you should be without fever so with a fever greater than 101 F were to return, this should be an indication to call the hospital regarding whether or not you should return for reevaluation. Otherwise, please follow-up with your primary care provider within 1 week of discharge. You have an appointment with Erendira Valenzuela on 02/25/[address] at [address] [facility]. We also wish for you to follow-up with the orthopedic surgeon. This appointment will be made for you. It has been a pleasure to be a part of your care and we wish you the best in both your health and your recovery. Pending Studies at Discharge: No Stand-Alone Forms: My [facility], Smoking Cessation Medications and DC Order Prescriptions: New cefazolin 2 gram recon soln 2 g IV Q8H 26 Days oxycodone 5 mg tablet 5 mg PO Q6H Qty: 10 0RF Continued hydrochlorothiazide 25 mg tablet 25 mg PO DAILY Qty: 90 1RF atorvastatin 20 mg tablet 20 mg PO DAILY Qty: 90 1RF omeprazole 40 mg capsule,delayed release(DR/EC) 40 mg PO QDAY Qty: 30 1RF tamsulosin 0.4 mg capsule 0.4 mg PO DAILY Qty: 90 3RF tadalafil 20 mg tablet 20 mg PO DAILY PRN (Reason: sexual activity) Qty: 10 5RF Rx Instructions: administer approximately 30min before sexual activity; do not use more than 1 dose per 24hrs aspirin 81 mg tablet,delayed release (DR/EC) 81 mg PO DAILY triamcinolone acetonide 0.1 % ointment 1 applic topical BID PRN (Reason: ..) docusate sodium 100 mg Capsule 100 mg PO DAILY allopurinol 100 mg tablet 100 mg PO DAILY Rx Instructions: TAKE ONE TABLET BY MOUTH EVERY DAY trazodone 150 mg tablet 150 mg PO HS Rx Instructions: TAKE ONE TABLET BY MOUTH EVERY DAY duloxetine 60 mg capsule,delayed release(DR/EC) 60 mg PO DAILY Rx Instructions: TAKE ONE CAPSULE BY MOUTH EVERY DAY Discharge Orders: Discharge Order (Routine); Ordered 02/23/24 Ordered By: Talha Bryan Admission Data Admit Date/Time: 02/16/24 02:32 Attending Provider: Freddy Horne Admit Provider: Yancy Moody Primary Care Provider: Katie Persaud Other Providers: Joel,Pauline; Susy Peña; Bridger Elliott; Hayley Flores; Lima Luciano; Sterling Russo; Stephania Chacon; Eileen Peters; Edith Leger; Sheryl Collins; Celina Hurtado Other Interventions: Discharge Summary Assessment (RN) Last Done: 02/23/24 11:14 Supervising Physician Co-Signing Physician Notes ATTESTATION I also saw the patient and confirmed mueller portions of the history and exam. I agree with the impression and plan in the resident documentation, and as summarized below. He feels well this morning and is looking forward to discharge. EXAM Vital signs as noted, remains afebrile Heart regular rate Lungs clear with nonlabored respirations IMPRESSION & PLAN Left knee intra-articular infection status post aspiration 02/14, I&D 02/15 I agree with the plan as delineated in the resident's discharge summary. Additional per resident documentation"
== END 2024-02-23 12:30 | disposition home health service (06) | DRG 857 ==
LOC: ED 21:11 → SUATTDRO 02-16 02:32 → EDINP 02-16 02:32 → 2N 02-16 12:43 → 3N 02-22 21:09

== ENCOUNTER 2025-01-26 13:40 | Inpatient (IN) ==
--- NOTE | 2025-01-26 14:03 | Emergency Department Note ---
Impression & Plan Chest pain, Dysrhythmia ED Provider Note HISTORY OF PRESENT ILLNESS: Patient is a 64-year-old male presenting with chest pain, shortness of breath and lightheadedness. Patient reports that for the last 4 days he has been having continuous chest pressure. He states that all of a sudden 4 days ago he had chest pressure and felt very short of breath. He reports symptoms have continued throughout the weekend. He had disclosed to his that it "felt like an elephant is sitting on my chest" and she brought him to the emergency department today. Patient denies any history of cardiac stents. Denies any DVT or PE history. He denies any recent changes to medications. He reports that throughout this weekend he has felt like he is going to pass out and has been very dizzy when he stands up. He reports his last stress test was a number of years ago. He is on a baby aspirin daily but no other anticoagulation or antiplatelet therapies. Any recent fevers. He does report he has had a nonproductive cough for the last 4 days. He is currently complaining of a dull pressure in his chest. ROS: as above PHYSICAL EXAM: Constitutional: Patient appears in no acute distress. HENT: Head: Normocephalic and atraumatic. Eyes: EOMI, PERRL Mouth/Throat: Mucous membranes moist. Neck: Trachea midline. Neck supple. Cardiovascular: RRR, No murmurs, rubs or gallops. Intact distal pulses. Pulmonary/Chest: No respiratory distress. Breath sounds clear and equal bilaterally. No wheezes or rales. Abdominal: Abdomen soft, no tenderness, rebound or guarding. Musculoskeletal: No edema, tenderness or deformity noted. Skin: Warm and dry. No rash, erythema, pallor or cyanosis Psychiatric: Appropriate mood and affect for situation. Neurological: Alert and keenly responsive. CN II-XII grossly intact, moving all extremities equally and fully. MDM: - Vitals signs showed hypertension and bradycardia - History obtained via patient. History as above. - Chronic conditions affecting care: HTN; HLD; CKD - Differential diagnoses include, but are not limited to: Acute coronary syndrome; pulmonary embolism; dissection; tension pneumothorax; esophageal rupture; pneumonia - Order placed for continuous cardiac monitoring. At this time, monitor showed rate of 73 bpm with normal sinus rhythm, per my interpretation. - External medical records reviewed. Primary care visit note dated 11/14/2024 was reviewed. Patient is followed in the clinic for his chronic medical problems. - EKG image interpreted by myself showed normal sinus rhythm. Rate bradycardic at 45 bpm. QT is 482. No acute ischemic changes. Noted to have artifact at baseline. - Laboratory workup interpreted by myself showed leukocytosis (WBC 12.45); normal PT/INR; normal D-dimer; stable electrolytes; RADHA (Cr 1.79); normal troponin; normal BNP; normal lipase - Repeat troponin within normal limits - Viral respiratory panel negative - CXR image reviewed by myself is negative for pneumonia, per my interpretation. - Repeat troponin within normal limits - Patient ambulated in the emergency department with nursing staff. His saturations remained above 94%. However, while ambulating he got very hot and flushed and felt like he was going to pass out. When he was brought back to his examination room and placed on the monitor, he was noted to be in there is to be a heart block. Rhythm strip indicated below. Patient felt better at rest and his heart rate went up into the 60s and seem to be in normal sinus rhythm again. - Discussed case with [facility] auto electrical technician, Dr. Vidales at 18:00. He reports that it looks like the patient goes into 2-1 AV block. He recommends admission to the hospital. He states that the patient does not have any AV blockers on board, he will probably need a pacemaker. He states that patient might have a slower heart rate at night, but unless he becomes significantly bradycardic and symptomatic, would not need a temporary pacemaker at this time. - Discussion was had with case fitter about patient's case and need for admission - Hospitalist consulted for admission - Patient admitted to [facility] hospitalist service for further evaluation and management. ASSESSMENT AND PLAN: Diagnosis: Chest pain; dysrhythmia Plan: Admit Past Med/Surg History Problem List (Updated 01/26/25 @ 18:24 by Nida Posey MD) Dysrhythmia (Acute) Chest pain (Acute) Cervicalgia Cervical facet joint syndrome Organic periodic limb movement disorder Nocturnal hypoxemia Moderate obstructive sleep apnea Sensorineural hearing loss, bilateral Tinnitus, bilateral Status post vasectomy Beta thalassemia, heterozygous Periodic limb movement disorder Hypersomnia Witnessed apneic spells Family history of beta thalassemia Epididymal cyst Infection of left knee Iron deficiency anemia Status post arthroscopic knee surgery Knee swelling (Acute) Prediabetes Gout Chronic kidney disease (CKD) Depression Hyperlipemia Erectile dysfunction Lower urinary tract symptoms (LUTS) Hematospermia Gross hematuria Left testicular pain DJD (degenerative joint disease) of knee Medical History Cervicalgia GERD (gastroesophageal reflux disease) Urinary urgency Chronic kidney disease hx, f/u w/nephrology earlier 2023 "who told him there was nothing to be concerned about" Hyperlipidemia Depression Gout Prediabetes Iron deficiency anemia Surgical History Hx of arthroscopy of shoulder rt/lt Hx of colonoscopy Hx of tonsillectomy Hx of arthroscopy of left knee 02/2024, w/I&D Status post right knee replacement Family History Grandmother (Maternal) Diabetes Heart disease Myocardial infarction Denies family history of Ovarian cancer Prostate cancer Breast cancer Colorectal cancer Social History Smoking Status: Former smoker Tobacco Type: Cigarettes Age Started Using Tobacco: 16; Age Quit Using Tobacco: 39; packs per day: 1; Second Hand Exposure: No; Do You Dip or Chew Tobacco: No (quit years ago; advised); Hx Alcohol Use: Yes Hx Substance Use: No Preferred Language: Sierra Leonean Communication Ability: Effective Visual Impairment: No Limitations Hearing Ability: Normal Induction Coordination Engineer Required: No Beliefs That Will Affect Care: None marital status: Legally Current Living Situation: Significant Other current occupational status: employed Feels Safe at Home: Yes Childhood Exposure to Second-Hand Smoke: No Diet: regular Dental Care, Regularly: No Physical Activity Frequency: 3-4 Times per Week Seatbelt Use: always Sunscreen Use: No Do you think of yourself as: straight/heterosexual Gender Identity: Male Assistive Devices: Denture - Upper and Glasses Allergies Allergies Allergy/AdvReac Type Severity Reaction Status Date / Time No Known Allergies Allergy Verified 01/26/25 18:50 Home Meds Home Medications Medication Instructions Recorded Confirmed aspirin 81 mg tablet,delayed 81 mg PO QAM 01/26/25 01/26/25 release gabapentin 100 mg capsule 100 mg PO QPM 01/26/25 01/26/25 Previous Rx's Medication Instructions Recorded allopurinol 100 mg tablet 100 mg PO QAM #90 tabs 08/13/24 atorvastatin 20 mg tablet 20 mg PO HS #90 tabs 08/13/24 hydrochlorothiazide 25 mg tablet 25 mg PO QAM #90 tabs 08/13/24 trazodone 150 mg tablet 150 mg PO HS #90 tabs 08/13/24 omeprazole 40 mg capsule,delayed 40 mg PO QAM #90 caps 12/08/24 release Results & Data (ED) Vital Signs Vital Signs - 24 hr 01/26/25 13:47 01/26/25 14:01 01/26/25 14:04 Temperature 36.9 C Temperature Source Temporal Artery Scan Pulse Rate - Lying Pulse Rate - Sitting Pulse Rate - Standing Pulse Rate 49 L 63 66 Pulse Rate [Apical] Pulse Rate [Exercises] Pulse Strength Normal Respiratory Rate 19 18 Respiratory Rate [Exercises] Respiratory Effort / Characteristics Non-Labored Spontaneous Respiratory Depth Normal Respiratory Pattern Regular Blood Pressure - Lying Blood Pressure - Sitting Blood Pressure- Standing Blood Pressure 150/74 H Blood Pressure [Right Arm] Blood Pressure Mean 99 Blood Pressure Mean [Right Arm] Blood Pressure Position Sitting Pulse Oximetry 97 97 Pulse Oximetry [Exercises] Oxygen Delivery Method Room Air Room Air Sepsis Recent Fever Within 48 Hours No Sepsis New/Unexplained Change in Mental Status No Sepsis Action Taken by Nursing No Action Required 01/26/25 15:39 01/26/25 16:45 01/26/25 17:00 Temperature Temperature Source Pulse Rate - Lying 63 Pulse Rate - Sitting 60 Pulse Rate - Standing 63 Pulse Rate Pulse Rate [Apical] 62 60 Pulse Rate [Exercises] Pulse Strength Respiratory Rate 18 18 Respiratory Rate [Exercises] Respiratory Effort / Characteristics Respiratory Depth Respiratory Pattern Blood Pressure - Lying 148/81 H Blood Pressure - Sitting 115/77 Blood Pressure- Standing 159/79 H Blood Pressure Blood Pressure [Right Arm] 149/80 H 143/89 H Blood Pressure Mean Blood Pressure Mean [Right Arm] 103 107 Blood Pressure Position Pulse Oximetry 99 97 Pulse Oximetry [Exercises] Oxygen Delivery Method Room Air Room Air Sepsis Recent Fever Within 48 Hours Sepsis New/Unexplained Change in Mental Status Sepsis Action Taken by Nursing 01/26/25 17:39 01/26/25 18:02 01/26/25 18:44 Temperature Temperature Source Pulse Rate - Lying Pulse Rate - Sitting Pulse Rate - Standing Pulse Rate 73 Pulse Rate [Apical] 63 Pulse Rate [Exercises] 63 Pulse Strength Respiratory Rate 17 Respiratory Rate [Exercises] 20 Respiratory Effort / Characteristics Respiratory Depth Respiratory Pattern Blood Pressure - Lying Blood Pressure - Sitting Blood Pressure- Standing Blood Pressure Blood Pressure [Right Arm] 163/86 H Blood Pressure Mean Blood Pressure Mean [Right Arm] 111 Blood Pressure Position Pulse Oximetry 97 Pulse Oximetry [Exercises] 98 Oxygen Delivery Method Room Air Room Air Sepsis Recent Fever Within 48 Hours Sepsis New/Unexplained Change in Mental Status Sepsis Action Taken by Nursing Laboratory Data 01/26/25 14:00 01/26/25 14:00 Lab Results 01/26/25 01/26/25 01/26/25 Range/Units 14:00 14:05 15:47 WBC 12.45 H (4.8-10.8) K/ul RBC 6.36 H (4.70-6.10) M/uL Hgb 13.2 L (14.0-18.0) g/dl Hct 42.6 (42.0-52.0) % MCV 67.0 L (80.0-100.0) fL MCH 20.8 L (25.0-34.0) pg MCHC 31.0 L (32.0-36.0) g/dL RDW Std Deviation 37.1 (36.4-46.3) fL RDW Coeff of Joi 17.5 H (11.5-14.5) % Plt Count 233 (130-400) K/uL MPV 10.1 (9.4-12.4) fL Immature Gran % (Auto) 1.5 % Neut % (Auto) 76.6 % Lymph % (Auto) 12.6 % Mchenry % (Auto) 7.7 % Eos % (Auto) 1.2 % Baso % (Auto) 0.4 % Neut # (Auto) 9.53 H (1.40-6.50) K/uL Lymph # (Auto) 1.57 (1.20-3.40) K/uL Mchenry # (Auto) 0.96 H (0.11-0.59) K/uL Eos # (Auto) 0.15 (0.00-0.50) K/uL Baso # (Auto) 0.05 (0.00-0.20) K/uL Immature Gran # (Auto) 0.19 (0.01-0.20) K/uL Polychromasia 1+ Microcytosis Present Tear Drop Cells 2+ Ovalocytes 1+ PT 11.0 (9.0-12.0) Seconds INR 1.0 (0.9-1.1) D-Dimer 380 (0-500) ug/L FEU Sodium 140 (136-145) mmol/L Potassium 3.7 (3.5-5.1) mmol/L Chloride 107 (98-107) mmol/L Carbon Dioxide 26 (21-32) mmol/L Anion Gap 7 (3-11) BUN 34 H (6-23) mg/dl Creatinine 1.79 H (0.6-1.4) mg/dl Est Cr Clr Drug Dosing 49.5 ml/min eGFR 41.27 BUN/Creatinine Ratio 19.0 (10-20) Glucose 102 H (70-99(Fasting)) mg/dl Calcium 9.5 (8.6-10.3) mg/dl Magnesium 2.4 (1.7-2.4) mg/dl Total Bilirubin 0.5 (0.2-1.0) mg/dl AST 22 (13-39) U/L ALT 13 (7-52) U/L Alkaline Phosphatase 79 (34-104) U/L Troponin I High Sens 5.7 4.9 (0-20) pg/ml B-Natriuretic Peptide 61 (0-100) pg/ml Total Protein 7.3 (6.0-8.3) gm/dl Albumin 4.7 (3.4-5.0) gm/dl Globulin 2.6 (2.5-4.0) gm/dl Albumin/Globulin Ratio 1.8 (0.9-2) Lipase 63 (11-82) U/L Adenovirus (PCR) Not Detected (NotDetected) B. pertussis DNA (PCR) Not Detected (NotDetected) B.parapertussis DNA PCR Not Detected (NotDetected) C. pneumoniae DNA (PCR) Not Detected (NotDetected) Coronavirus OC43 (PCR) Not Detected (NotDetected) Coronavirus HKU1 (PCR) Not Detected (NotDetected) Coronavirus 229E (PCR) Not Detected (NotDetected) SARS-CoV-2 (PCR) Not Detected (NotDetected) Coronavirus NL63 (PCR) Not Detected (NotDetected) Human Metapneumovir PCR Not Detected (NotDetected) Influenza Type A (PCR) Not Detected (NotDetected) Influenza Type B (PCR) Not Detected (NotDetected) M. pneumoniae (PCR) Not Detected (NotDetected) Parainfluenza 1 (PCR) Not Detected (NotDetected) Parainfluenza 2 (PCR) Not Detected (NotDetected) Parainfluenza 3 (PCR) Not Detected (NotDetected) Parainfluenza 4 (PCR) Not Detected (NotDetected) RSV (PCR) Not Detected (NotDetected) Entero/Rhino (PCR) Not Detected (NotDetected) Administered Medications Discontinued Medications Sodium Chloride (Nss) 1,000 mls @ 999 mls/hr IV .Q1H1M ONE Stop: 01/26/25 16:43 Last Infusion: 01/26/25 17:03 Dose: Infused Documented By: Admin: 01/26/25 16:06 Dose: 999 mls/hr Documented By: JATINDER Imaging Data Radiologist's Impression: Chest X-Ray 01/26/25 13:55 XR chest 1V portable CLINICAL HISTORY: Chest pain, nonspecific COMPARISON STUDY: 02/15/2024 FINDINGS: Stable mild cardiomegaly without pulmonary vascular congestion. No effusion, consolidation, or pneumothorax. IMPRESSION: No acute findings. ACT 112: Negative or not required by law. Electronically signed by: Ricardo Arceo M.D. 01/26/2025 2:14 PM Discharge Plan Visit Data Chief Complaint: Chest Pain Stated Complaint: CHEST PAIN, DIZZY ED Provider: Nida Posey Discharge Problem: Chest pain, Dysrhythmia Forms Stand Alone Forms: Format [facility] Prescriptions Prescriptions: No Action omeprazole 40 mg capsule,delayed release(DR/EC) 40 mg PO QAM Qty: 90 1RF allopurinol 100 mg tablet 100 mg PO QAM Qty: 90 3RF atorvastatin 20 mg tablet 20 mg PO HS Qty: 90 3RF hydrochlorothiazide 25 mg tablet 25 mg PO QAM Qty: 90 3RF trazodone 150 mg tablet 150 mg PO HS Qty: 90 3RF aspirin [Aspir-Low] 81 mg Tablet,Delayed Release (Dr/Ec) 81 mg PO QAM gabapentin 100 mg capsule 100 mg PO QPM Referrals Referrals: Katie Persaud MD [Primary Care Provider] -
--- NOTE | 2025-01-26 14:15 | XRay Report ---
XR chest 1V portable CLINICAL HISTORY: Chest pain, nonspecific COMPARISON STUDY: 02/15/2024 FINDINGS: Stable mild cardiomegaly without pulmonary vascular congestion. No effusion, consolidation, or pneumothorax. IMPRESSION: No acute findings. ACT 112: Negative or not required by law. Electronically signed by: Ricardo Arceo M.D. 01/26/2025 2:14 PM
[2025-01-26 14:18] LABS: Hematocrit (blood only) 42.6 % (42.0-52.0); Hemoglobin 13.2 g/dl (14.0-18.0); Mean Corpuscular Hemoglobin 20.8 pg (25.0-34.0); RDW Coefficient of Variation 17.5 % (11.5-14.5); RDW Standard Deviation 37.1 fL (36.4-46.3); Red Blood Count 6.36 M/uL (4.70-6.10); White Blood Count 12.45 K/ul (4.8-10.8)
[2025-01-26 14:27] LABS: Mean Platelet Volume 10.1 fL (9.4-12.4); Platelet Count 233 K/uL (130-400)
[2025-01-26 14:42] LABS: Albumin Level 4.7 gm/dl (3.4-5.0); Basophils # (auto) 0.05 K/uL (0.00-0.20); Basophils % (auto) 0.4 %; Bilirubin,Total 0.5 mg/dl (0.2-1.0); Calcium 9.5 mg/dl (8.6-10.3); D Dimer 380 ug/L FEU (0-500); Eosinophils # (auto) 0.15 K/uL (0.00-0.50); Eosinophils % (auto) 1.2 %; Immature Granulocytes # (auto) 0.19 K/uL (0.01-0.20); Immature Granulocytes % (auto) 1.5 %; Lymphocytes # (auto) 1.57 K/uL (1.20-3.40); Lymphocytes % (auto) 12.6 %; Microcytosis Present; Monocytes # (auto) 0.96 K/uL (0.11-0.59); Monocytes % (auto) 7.7 %; Neutrophils # (auto) 9.53 K/uL (1.40-6.50); Neutrophils % (auto) 76.6 %; Ovalocytes 1+; Polychromasia 1+; Potassium 3.7 mmol/L (3.5-5.1); Tear Drop Cells 2+
[2025-01-26 14:48] LABS: Albumin Globulin Ratio 1.8 (0.9-2); Creatinine Clr Calc Pharmacy 49.5 ml/min; Globulin 2.6 gm/dl (2.5-4.0); Total Protein 7.3 gm/dl (6.0-8.3)
[2025-01-26 14:52] LABS: Troponin I High Sensitivity 5.7 pg/ml (0-20)
[2025-01-26] MEDS: SODIUM CHLORIDE 0.9% 1,000 ML IV ONE (16:06)
--- NOTE | 2025-01-26 16:16 | Electrocardiogram Report ---
Test Reason : Blood Pressure : */* mmHG Vent. Rate : 45 BPM Atrial Rate : 45 BPM P-R Int : 156 ms QRS Dur : 148 ms QT Int : 482 ms P-R-T Axes : 61 11 46 degrees QTcB Int : 416 ms Sinus bradycardia Possible Left atrial enlargement Right bundle branch block Abnormal ECG When compared with ECG of 16-Feb-2024 00:33, Vent. rate has decreased by 36 bpm QT has shortened Confirmed by Nixon Morales ([id number]) on 01/26/2025 4:16:35 PM Referred By: REFERRED SELF Confirmed By: Nixon Morales
[2025-01-26 16:46] LABS: Adenovirus PCR Not Detected (NotDetected); Bordetella parapertussis PCR Not Detected (NotDetected); Bordetella pertussis PCR Not Detected (NotDetected); Chlamydia pneumoniae PCR Not Detected (NotDetected); Coronavirus 229E PCR Not Detected (NotDetected); Coronavirus CoV-2 (COVID19)PCR Not Detected (NotDetected); Coronavirus HKU1 PCR Not Detected (NotDetected); Coronavirus NL63 PCR Not Detected (NotDetected); Coronavirus OC43PCR Not Detected (NotDetected); Human Metapneumovirus PCR Not Detected (NotDetected); Influenza A PCR Not Detected (NotDetected); Influenza B PCR Not Detected (NotDetected); Mycoplasma pneumoniae PCR Not Detected (NotDetected); Parainfluenza Virus 1 PCR Not Detected (NotDetected); Parainfluenza Virus 2 PCR Not Detected (NotDetected); Parainfluenza Virus 3 PCR Not Detected (NotDetected); Parainfluenza Virus 4 PCR Not Detected (NotDetected); Respiratory Syncytial VirusPCR Not Detected (NotDetected); Rhinovirus/Enterovirus PCR Not Detected (NotDetected)
[2025-01-26 17:08] LABS: Magnesium 2.4 mg/dl (1.7-2.4)
--- NOTE | 2025-01-26 19:09 | History & Physical Report ---
Date of Service January 26, 2025 Assessment & Plan (1) Second degree heart block: (2) Pre-syncope: (3) Chest pain: (4) Moderate obstructive sleep apnea: Plan This patient is a 64-year-old male with a history of CKD stage III, HTN, SHASHI, iron deficiency anemia, depression, prediabetes, lumbar back pain and neck pain, gout, GERD, BPH, and HLD who presents to the ER with chest pain and feeling of lightheadedness and SOB especially with ambulation. This has been going on for the last 4 days. He has felt at times like he was about to pass out with standing up. The chest pain is constant and dull but at times felt like an elephant sitting on his chest. In the ER, he was noted to have sinus bradycardia with first-degree AV block at rest but with ambulation went into a second-degree heart block Mobitz type II. This went away after he returned to rest. He is not on any AV angela murray medications. I discussed his care with cardiology upon admission and he will be evaluated for need for pacemaker placement. #Secondary heart block/presyncope/chest pain-presents with 4 days of constant dull chest pain, intermittent lightheadedness especially with ambulation along with SOB. Went into second-degree Mobitz 2 heart block in the ER with associa stefano symptoms. Initial troponin negative, CXR negative. BPs normal. He is not on any AV angela blocking medications. No recent fevers or chills or infectious symptoms. -Admit to PCU -Consult cardiology-May need pacemaker placement-keep n.p.o. after midnight -Follow BMP, magnesium and keep electrolytes replete -Check TSH, Lyme screen -Trend serial troponin, check echocardiogram #CKD stage III-creatinine stable around baseline at 1.7. 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 -Avoid nephrotoxins, renally dose medications -Okay to continue home HCTZ #HTN/HLD-no acute issues -Continue home HCTZ, atorvastatin, aspirin #Moderate SHASHI-he recently received CPAP and cannot tolerate full facemask or nasal pillows and refuses to wear it -Ordered for here in case he can try it especially given bradycardia and heart block #Iron deficiency anemia/leukocytosis-leukocytosis may be secondary to stress response and is mildly elevated at 12, hemoglobin 13.2 and stable from previous, severely microcytic with MCV 67, RDW elevated at 17.5, normal platelets. -Check iron studies, follow CBC #Lumbar back pain/cervicalgia-no acute issues, follows with pain management -Continue gabapentin which is also for periodic limb movement disorder #GERD-no acute issues -Continue PPI #BPH-no acute issues, recently had epididymal cyst removed and follows with urology -No medications #Depression-no acute issues -Continue trazodone and recently was stopped from duloxetine # DM2-most recent HgbA1c 6.8%, not on medications at home -Ordered NovoLog supplemental insulin and BSG's before meals and at bedtime DVT prophylaxis-SCDs only for now given upcoming possible procedure Disposition-admit to PCU History of Present Illness Chief Complaint: Chest pain, lightheadedness Primary Care Provider: Katie Persaud MD This patient is a 64-year-old male with a history of CKD stage III, HTN, SHASHI, iron deficiency anemia, depression, prediabetes, lumbar back pain and neck pain, gout, GERD, BPH, and HLD who presents to the ER with chest pain and feeling of lightheadedness and SOB especially with ambulation. This has been going on for the last 4 days. He has felt at times like he was about to pass out with standing up. The chest pain is constant and dull but at times felt like an elephant sitting on his chest. In the ER, he was noted to have sinus bradycardia with first-degree AV block at rest but with ambulation went into a second-degree heart block Mobitz type II. This went away after he returned to rest. He is not on any AV angela murray medications. I discussed his care with cardiology upon admission and he will be evaluated for need for pacemaker placement. Allergies Allergy/AdvReac Type Severity Reaction Status Date / Time No Known Allergies Allergy Verified 01/26/25 18:50 Home Medications Medication Instructions Recorded Confirmed Type allopurinol 100 mg tablet 100 mg PO QAM #90 tabs 08/13/24 01/26/25 Rx atorvastatin 20 mg tablet 20 mg PO HS #90 tabs 08/13/24 01/26/25 Rx hydrochlorothiazide 25 mg tablet 25 mg PO QAM #90 tabs 08/13/24 01/26/25 Rx trazodone 150 mg tablet 150 mg PO HS #90 tabs 08/13/24 01/26/25 Rx omeprazole 40 mg capsule,delayed 40 mg PO QAM #90 caps 12/08/24 01/26/25 Rx release aspirin 81 mg tablet,delayed 81 mg PO QAM 01/26/25 01/26/25 History release gabapentin 100 mg capsule 100 mg PO QPM 01/26/25 01/26/25 History Past Med/Surg History Problem List (Updated 01/26/25 @ 19:43 by Iva Pinto MD) Pre-syncope Second degree heart block Dysrhythmia (Acute) Chest pain (Acute) Cervicalgia Cervical facet joint syndrome Organic periodic limb movement disorder Nocturnal hypoxemia Moderate obstructive sleep apnea Sensorineural hearing loss, bilateral Tinnitus, bilateral Status post vasectomy Beta thalassemia, heterozygous Periodic limb movement disorder Hypersomnia Witnessed apneic spells Family history of beta thalassemia Epididymal cyst Infection of left knee Iron deficiency anemia Status post arthroscopic knee surgery Knee swelling (Acute) Prediabetes Gout Chronic kidney disease (CKD) Depression Hyperlipemia Erectile dysfunction Lower urinary tract symptoms (LUTS) Hematospermia Gross hematuria Left testicular pain DJD (degenerative joint disease) of knee Medical History GERD (gastroesophageal reflux disease) Urinary urgency Chronic kidney disease hx, f/u w/nephrology earlier 2023 "who told him there was nothing to be concerned about" Hyperlipidemia Depression Gout Prediabetes Iron deficiency anemia Surgical History Hx of arthroscopy of shoulder rt/lt Hx of colonoscopy Hx of tonsillectomy Hx of arthroscopy of left knee 02/2024, w/I&D Status post right knee replacement Family History Grandmother (Maternal) Diabetes Heart disease Myocardial infarction Denies family history of Ovarian cancer Prostate cancer Breast cancer Colorectal cancer Social History Smoking Status: Former smoker Tobacco Type: Cigarettes Age Started Using Tobacco: 16; Age Quit Using Tobacco: 39; packs per day: 1; Second Hand Exposure: No; Do You Dip or Chew Tobacco: No (quit years ago; advised); Hx Alcohol Use: Yes Hx Substance Use: No Preferred Language: Turkmen Communication Ability: Effective Visual Impairment: No Limitations Hearing Ability: Normal Hockey Player Required: No Beliefs That Will Affect Care: None marital status: Legally Current Living Situation: Significant Other current occupational status: employed Feels Safe at Home: Yes Childhood Exposure to Second-Hand Smoke: No Diet: regular Dental Care, Regularly: No Physical Activity Frequency: 3-4 Times per Week Seatbelt Use: always Sunscreen Use: No Do you think of yourself as: straight/heterosexual Gender Identity: Male Assistive Devices: Denture - Upper and Glasses Review of Systems Review of Systems: All systems reviewed & are unremarkable except as noted in HPI & below Physical Exam Constitutional: WD/WN, vitals as above ENMT: external ear and nose normal, oropharynx normal Neck: trachea midline, no thyromegaly Respiratory: normal respiratory effort, lungs clear to auscultation Cardiovascular: RRR, no murmur, no edema Chest (Breasts): Chest: normal inspection of chest Gastrointestinal (Abdomen): normal bowel sounds, soft, nontender, no hepatosplenomegaly Musculoskeletal: Extremities: extremities normal to inspection; no cyanosis and no clubbing Skin: no rashes, warm and dry Neurologic: moves all extremities and awake; no focal motor deficits Psychiatric: A+Ox3, euthymic affect Lymphatic: no lymphedema Results & Data Results & Data Vital Signs (Past 12 Hours) Vital Signs Temp Pulse Pulse Pulse Resp Resp BP 01/26/25 18:44 63 17 01/26/25 18:02 73 01/26/25 17:39 63 20 01/26/25 17:00 60 18 01/26/25 15:39 62 18 01/26/25 14:04 66 01/26/25 14:01 63 18 01/26/25 13:47 36.9 C 49 L 19 150/74 H BP Pulse Ox Pulse Ox O2 Del Method 01/26/25 18:44 163/86 H 97 Room Air 01/26/25 18:02 01/26/25 17:39 98 Room Air 01/26/25 17:00 143/89 H 97 Room Air 01/26/25 15:39 149/80 H 99 Room Air 01/26/25 14:04 01/26/25 14:01 97 Room Air 01/26/25 13:47 97 Room Air Laboratory Results CBC, PT/INR, D-dimer, BMP, magnesium, LFTs, troponin, BNP, lipase, respiratory BioFire panel all reviewed Diagnostic Findings Chest x-ray reviewed ECG Additional Comments: ECGs reviewed with sinus bradycardia with first-degree AV block and RBBB Code Status & VTE Plan Code Status Full code VTE Prophylaxis Plan VTE Prophylaxis will be ordered: Yes PG Care Time/CCT Total # of Minutes Spent Total Time Spent with Patient: Total time spent is greater than 50% in coordination of care (as documented) at patient's floor/unit and/or counseling patient: Coding Level of Care Code 64497 INT INP/OBS CARE 3/75MIN Diagnoses Second degree heart block I44.1 Pre-syncope R55 Chest pain R07.9 Moderate obstructive sleep apnea G47.33
[2025-01-26 21:08] LABS: Lyme Screen Rflx Confirmation Positive (Negative)
[2025-01-26 21:42] LABS: Lyme Ab IgG 2nd Tier Confirm Positive (Negative); Lyme Ab IgM 2nd Tier Confirm Negative (Negative)
[2025-01-26 21:46] LABS: Thyroid Stimulating Hormone 2.795 uIu/ml (0.300-4.500)
[2025-01-26] MEDS ORDERED: CARBOHYDRATES FOR HYPOGLYCEMIA PO PRN (22:04)
[2025-01-26] MEDS ORDERED: ONDANSETRON INJ 2 MG/ML 2 ML VIAL IV PRN (22:04)
[2025-01-26] MEDS ORDERED: GLUCOSE 40% GEL 15 GM TUBE PO PRN (22:04)
[2025-01-26] MEDS ORDERED: DEXTROSE 50% 50 ML SYRINGE IV PRN (22:04)
[2025-01-26] MEDS ORDERED: POLYETHYLENE (MIRALAX) 17 GM PACK PO PRN (22:04)
[2025-01-26] MEDS ORDERED: GLUCOSE 10 TAB/TUBE PO PRN (22:04)
[2025-01-26] MEDS ORDERED: GLUCAGON FOR INJ 1 MG VIAL SQ PRN (22:04)
[2025-01-26] MEDS: INSULIN ASPART PER UNIT CHARGE SC SCH (23:32)
[2025-01-26] MEDS: GABAPENTIN 100 MG CAP PO SCH (23:46)
[2025-01-26] MEDS: ATORVASTATIN 20 MG TAB PO SCH (23:46)
[2025-01-26] MEDS: traZODone HCL 50 MG TAB PO SCH (23:46)
[2025-01-27] MEDS: INSULIN ASPART PER UNIT CHARGE SC SCH (00:13)
[2025-01-27 06:30] LABS: Basophils # (auto) 0.05 K/uL (0.00-0.20); Basophils % (auto) 0.5 %; Eosinophils # (auto) 0.18 K/uL (0.00-0.50); Eosinophils % (auto) 1.7 %; Hematocrit (blood only) 39.7 % (42.0-52.0); Hemoglobin 12.4 g/dl (14.0-18.0); Immature Granulocytes # (auto) 0.15 K/uL (0.01-0.20); Immature Granulocytes % (auto) 1.4 %; Lymphocytes # (auto) 1.73 K/uL (1.20-3.40); Lymphocytes % (auto) 16.4 %; Mean Corpuscular Hemoglobin 20.9 pg (25.0-34.0); Mean Corpuscular Hgb Conc 31.2 g/dL (32.0-36.0); Mean Corpuscular Volume 66.8 fL (80.0-100.0); Monocytes # (auto) 0.91 K/uL (0.11-0.59); Monocytes % (auto) 8.6 %; Neutrophils # (auto) 7.55 K/uL (1.40-6.50); Neutrophils % (auto) 71.4 %; RDW Standard Deviation 36.5 fL (36.4-46.3); Red Blood Count 5.94 M/uL (4.70-6.10); White Blood Count 10.57 K/ul (4.8-10.8)
[2025-01-27 06:49] LABS: Creatinine Clr Calc Pharmacy 40.3 ml/min; Magnesium 2.4 mg/dl (1.7-2.4); Potassium 4.3 mmol/L (3.5-5.1)
[2025-01-27 07:05] LABS: Mean Platelet Volume 10.5 fL (9.4-12.4); Microcytosis Present; Ovalocytes 1+; Platelet Count 208 K/uL (130-400); Polychromasia 1+; Tear Drop Cells 1+
[2025-01-27 07:08] LABS: Ferritin 232.5 ng/ml (8-388)
[2025-01-27 07:33] LABS: Estimated Average Glucose 134 mg/dl; Hemoglobin A1C 6.3 % (4.5-5.6)
[2025-01-27] MEDS: hydroCHLOROthiazide 25 MG TAB PO SCH (08:12)
[2025-01-27] MEDS: allopurinoL 100 MG TAB PO SCH (08:12)
[2025-01-27] MEDS: PANTOprazole 40 MG TAB PO SCH (08:12)
[2025-01-27] MEDS: ASPIRIN 81 MG ECTAB PO SCH (08:12)
[2025-01-27] MEDS: cefTRIAXone SODIUM 2,000 MG/50 ML BAG IV SCH (09:37)
--- NOTE | 2025-01-27 11:02 | XCELERA ---
[id number] [id number]
--- NOTE | 2025-01-27 11:35 | Cardiology Consultation ---
Date of Consultation January 27, 2025 Assessment & Plan (1) Second degree heart block: -Bradycardia dysrhythmia has been symptomatic. -Most likely secondary to Lyme disease. -Should improve with intravenous ceftriaxone. -Echocardiogram notes normal left ventricular systolic function. (2) HTN (hypertension): -Adequate control on current regimen. -Borderline left hypertrophy on current echocardiogram. (3) Hyperlipemia: -Continue atorvastatin. History of Present Illness Attending Physician: Iva Pinto MD History of Present Illness Mr. Freeman is a 64-year-old male admitted yesterday with high degree heart block. This consultation was ordered to assist in his cardiac management. The patient was in his usual state of health until approximately 4 days prior to presentation. He began to notice a substernal chest pressure which was constant. He also experienced exertional dyspnea. He had several episodes of dizziness and felt that he was "going to pass out." On presentation to the impression, the patient was noted to be in sinus rhythm with 2-1 AV block. This was quite symptomatic when the patient was ambulated. Hospitalization was recommended. After admission, the patient's Lyme titers returned positive. He was started on intravenous ceftriaxone. The patient does not remember any tick bites. The patient has never had a cardiac event. His medication reviewed in detail. Past medical and surgical history 1. Hypertension 2. Mild LVH 3. Hypercholesterolemia 4. Chronic renal failure 5. Diabetes 6. GERD 7. Iron deficiency anemia 8. Beta thalassemia 9. Obstructive sleep apnea 10. Gout 11. BPH 12. Depression Social history Single, lives with his significant other Quit tobacco use age 39 Occasional alcohol Family history Noncontributory Review of systems A 10 point review of system was undertaken and negative except that described above. Allergies Allergy/AdvReac Type Severity Reaction Status Date / Time No Known Allergies Allergy Verified 01/26/25 18:50 Home Medications Medication Instructions Recorded Confirmed Type allopurinol 100 mg tablet 100 mg PO QAM #90 tabs 08/13/24 01/26/25 Rx atorvastatin 20 mg tablet 20 mg PO HS #90 tabs 08/13/24 01/26/25 Rx hydrochlorothiazide 25 mg tablet 25 mg PO QAM #90 tabs 08/13/24 01/26/25 Rx trazodone 150 mg tablet 150 mg PO HS #90 tabs 08/13/24 01/26/25 Rx omeprazole 40 mg capsule,delayed 40 mg PO QAM #90 caps 12/08/24 01/26/25 Rx release aspirin 81 mg tablet,delayed 81 mg PO QAM 01/26/25 01/26/25 History release gabapentin 100 mg capsule 100 mg PO QPM 01/26/25 01/26/25 History Patient History Medical History (Updated 01/27/25 @ 11:58 by Nixon Morales MD) GERD (gastroesophageal reflux disease) Urinary urgency Chronic kidney disease hx, f/u w/nephrology earlier 2023 "who told him there was nothing to be concerned about" Hyperlipidemia Depression Gout Prediabetes Iron deficiency anemia Surgical History Hx of arthroscopy of shoulder rt/lt Hx of colonoscopy Hx of tonsillectomy Hx of arthroscopy of left knee 02/2024, w/I&D Status post right knee replacement Family History Grandmother (Maternal) Diabetes Heart disease Myocardial infarction Denies family history of Ovarian cancer Prostate cancer Breast cancer Colorectal cancer Social History Smoking Status: Never smoker Tobacco Type: Cigarettes Age Started Using Tobacco: 16; Age Quit Using Tobacco: 39; packs per day: 1; Second Hand Exposure: No; Do You Dip or Chew Tobacco: No; Hx Alcohol Use: Yes Alcohol type: beer Hx Substance Use: No Preferred Language: Ghanaian Communication Ability: Effective Visual Impairment: No Limitations Hearing Ability: Normal Can Labeler Required: No Beliefs That Will Affect Care: None marital status: Legally Current Living Situation: Significant Other Current Living Situation Comment: with girlfriend current occupational status: employed Other Information That Helps Us Care for You: No Feels Safe at Home: Yes Safety Concerns: Feels Safe At This Time Childhood Exposure to Second-Hand Smoke: No Diet: regular Dental Care, Regularly: No Physical Activity Frequency: 3-4 Times per Week Seatbelt Use: always Sunscreen Use: No Do you think of yourself as: straight/heterosexual Gender Identity: Male Assistive Devices: Denture - Upper and Glasses Physical Exam Physical Exam: In general this is a well-developed well-nourished white male in no acute distress. HEENT exam is negative. Neck reveals normal carotid upstrokes without bruits. Jugular venous pressure is flat at 90. There is no thyromegaly. Cardiovascular exam reveals a regular rhythm with a normal S1 and S2. No S3, S4, or murmurs are noted. Lungs are clear without rales, rhonchi, or wheezes. Abdomen is soft without bruits. Extremities reveal intact radial artery and posterior tibial pulses bilaterally. There is no peripheral edema. Results & Data Vital Signs (Past 12 Hours) Vital Signs Temp Pulse Pulse Resp BP Pulse Ox O2 Del Method 01/27/25 10:44 36.6 C 62 19 128/78 96 Room Air 01/27/25 07:55 36.3 C L 68 19 143/87 H 99 Room Air 01/27/25 05:11 Room Air 01/27/25 03:10 36.7 C 62 18 113/65 99 Room Air 01/26/25 23:04 36.8 C 67 18 176/88 H 98 Room Air Laboratory Results Initial high-sensitivity troponin was 5.7 with follow-up values of 5, 5, and less than 2.3. TSH is normal at 2.79. Lyme titers are positive. Diagnostic Findings EKG notes sinus bradycardia with a right bundle branch block. nuclear monitoring technician notes intermittent episodes of 2-1 AV conduction. Echocardiogram notes normal left ventricular systolic function with an ejection fraction of 55 to 60%. There is borderline LVH and mild tricuspid regurgitation. Chest x-ray notes cardiomegaly but no acute disease. PG Care Time/CCT Total # of Minutes Spent Total Time Spent with Patient: Total time spent is greater than 50% in coordination of care (as documented) at patient's floor/unit and/or counseling patient: Coding Level of Care Code 40738 INT INP/OBS CARE 3/75MIN Diagnoses Second degree heart block I44.1 HTN (hypertension) I10 Hyperlipemia E78.5
--- NOTE | 2025-01-27 13:21 | Electrocardiogram Report ---
Test Reason : Blood Pressure : */* mmHG Vent. Rate : 57 BPM Atrial Rate : 57 BPM P-R Int : 180 ms QRS Dur : 148 ms QT Int : 462 ms P-R-T Axes : 40 20 29 degrees QTcB Int : 449 ms Sinus bradycardia Right bundle branch block Abnormal ECG When compared with ECG of 26-Jan-2025 13:55, No significant change was found Confirmed by Nixon Morales ([id number]) on 01/27/2025 1:21:29 PM Referred By: REFERRED SELF Confirmed By: Nixon Morales
--- NOTE | 2025-01-27 13:48 | Hospitalist Progress Note ---
Date of Service January 27, 2025 Assessment & Plan (1) Lyme carditis: (2) Second degree heart block: (3) Pre-syncope: (4) Chest pain: Plan This patient is a 64-year-old male with a history of CKD stage III, HTN, SHASHI, iron deficiency anemia, depression, prediabetes, lumbar back pain and neck pain, gout, GERD, BPH, and HLD who presents to the ER with chest pain and feeling of lightheadedness and SOB especially with ambulation for 4 days prior to admission. He has felt at times like he was about to pass out with standing up. The chest pain is constant and dull but at times felt like an elephant sitting on his chest. In the ER, he was noted to have sinus bradycardia with first- degree AV block at rest but with ambulation went into a second-degree heart block Mobitz type II. This went away after he returned to rest. He is not on any AV angela murray medications. #Second degree heart block/presyncope/chest pain/Lyme carditis-presents with 4 days of constant dull chest pain, intermittent lightheadedness especially with ambulation along with SOB. Went into second-degree Mobitz 2 heart block in the ER with associated symptoms. Troponin negative serially x 3, CXR negative, ECHO normal. BPs normal. He is not on any AV angela blocking medications. No recent fevers or chills or infectious symptoms. Lyme IgG positive, IgM negative, but had neg Lyme IgG on previous testing in 2021. 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 TSH normal He has continued to have some intermittent 2nd degree AVB on tele. -start ceftriaxone 2000mg IV q24h x 21 days-will need home IV abx set up -continued stay on PCU for tele monitoring -Consult cardiology-will hold off on pacer for now while treating Lyme to see if heart block improves -Follow BMP, magnesium and keep electrolytes replete #CKD stage III-creatinine stable around baseline at 1.7. 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 Fe studies here normal. TSH normal #Lumbar back pain/cervicalgia-no acute issues, follows with pain management -Continue gabapentin which is also for periodic limb movement disorder #GERD-no acute issues -Continue PPI #BPH-no acute issues, recently had epididymal cyst removed and follows with urology -No medications #Depression-no acute issues -Continue trazodone and recently was stopped from duloxetine # DM2-most recent HgbA1c 6.8%, not on medications at home. A1C here now down to 6.3% -Ordered NovoLog supplemental insulin and BSG's before meals and at bedtime DVT prophylaxis-SCDs Disposition-continued stay on PCU Admission and Anticipated Discharge Date Admission Date: January 26, 2025 Subjective Pt reports feeling much better today. No further episodes of lightheadedness, chest pressure, or SOB. He did have some more intermittent episodes of 2nd degree AVB overnight. He has not had any known tick bites, rashes, joint pains, headaches, or fevers. He does have a dog that often goes outside. Physical Exam Constitutional: WD/WN, vitals as above Neck: trachea midline, no thyromegaly Respiratory: normal respiratory effort, lungs clear to auscultation Cardiovascular: RRR, no murmur, no edema Chest (Breasts): Chest: normal inspection of chest Musculoskeletal: Extremities: extremities normal to inspection; no cyanosis and no clubbing Skin: no rashes, warm and dry Neurologic: moves all extremities and awake; no focal motor deficits Psychiatric: A+Ox3, euthymic affect Lymphatic: no lymphedema Results & Data Results & Data Vital Signs (Past 12 Hours) Vital Signs Temp Pulse Resp BP Pulse Ox O2 Del Method 01/27/25 10:44 36.6 C 62 19 128/78 96 Room Air 01/27/25 07:55 36.3 C L 68 19 143/87 H 99 Room Air 01/27/25 05:11 Room Air 01/27/25 03:10 36.7 C 62 18 113/65 99 Room Air Laboratory Results CBC, BMP, HgbA1C, Lyme titer, TSH reviewed Diagnostic Findings ECHO reviewed PG Care Time/CCT Total # of Minutes Spent Total Time Spent with Patient: Total time spent is greater than 50% in coordination of care (as documented) at patient's floor/unit and/or counseling patient: Coding Level of Care Code 54374 SUB INP/OBS CARE 3/50MIN Diagnoses Lyme carditis A69.29 Second degree heart block I44.1 Pre-syncope R55 Chest pain R07.9
[2025-01-28 06:08] LABS: Basophils # (auto) 0.06 K/uL (0.00-0.20); Basophils % (auto) 0.4 %; Eosinophils # (auto) 0.37 K/uL (0.00-0.50); Eosinophils % (auto) 2.7 %; Hematocrit (blood only) 41.5 % (42.0-52.0); Hemoglobin 12.8 g/dl (14.0-18.0); Immature Granulocytes % (auto) 1.5 %; Lymphocytes # (auto) 2.22 K/uL (1.20-3.40); Lymphocytes % (auto) 16.5 %; Mean Corpuscular Hemoglobin 20.7 pg (25.0-34.0); Mean Corpuscular Hgb Conc 30.8 g/dL (32.0-36.0); Mean Corpuscular Volume 67.2 fL (80.0-100.0); Monocytes # (auto) 1.19 K/uL (0.11-0.59); Monocytes % (auto) 8.8 %; Neutrophils # (auto) 9.45 K/uL (1.40-6.50); Neutrophils % (auto) 70.1 %; RDW Standard Deviation 36.5 fL (36.4-46.3); Red Blood Count 6.18 M/uL (4.70-6.10); White Blood Count 13.49 K/ul (4.8-10.8)
[2025-01-28 06:18] LABS: Platelet Count 217 K/uL (130-400)
[2025-01-28 06:20] LABS: BUN Creatinine Ratio 20.6 (10-20); Calcium 9.5 mg/dl (8.6-10.3); Creatinine Clr Calc Pharmacy 38.1 ml/min; Magnesium 2.4 mg/dl (1.7-2.4); Potassium 4.5 mmol/L (3.5-5.1)
[2025-01-28 06:47] LABS: Microcytosis Present; Ovalocytes 1+; Polychromasia 1+; Tear Drop Cells 1+
--- NOTE | 2025-01-28 16:02 | Hospitalist Progress Note ---
Date of Service January 28, 2025 Assessment & Plan (1) Lyme carditis: (2) Second degree heart block: (3) Pre-syncope: (4) Chest pain: Plan This patient is a 64-year-old male with a history of CKD stage III, HTN, SHASHI, iron deficiency anemia, depression, prediabetes, lumbar back pain and neck pain, gout, GERD, BPH, and HLD who presents to the ER with chest pain and feeling of lightheadedness and SOB especially with ambulation for 4 days prior to admission. He has felt at times like he was about to pass out with standing up. The chest pain is constant and dull but at times felt like an elephant sitting on his chest. In the ER, he was noted to have sinus bradycardia with first- degree AV block at rest but with ambulation went into a second-degree heart block Mobitz type II. This went away after he returned to rest. He is not on any AV angela murray medications. #Second degree heart block/presyncope/chest pain/Lyme carditis-presents with 4 days of constant dull chest pain, intermittent lightheadedness especially with ambulation along with SOB. Went into second-degree Mobitz 2 heart block in the ER with associated symptoms. Troponin negative serially x 3, CXR negative, ECHO normal. BPs normal. He is not on any AV angela blocking medications. No recent fevers or chills or infectious symptoms. Lyme IgG positive, IgM negative, but had neg Lyme IgG on previous testing in 2021. 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 TSH normal He has continued to have frequent 2nd degree AVB on tele after 2 days of treatment with ceftriaxone. As per my d/w Cardiology, would expect to see improvement in the near future on treatment -continue ceftriaxone 2000mg IV q24h x 21 days-will need home IV abx set up -continued stay on PCU for tele monitoring -Consult cardiology apprecaited- hold off on pacer for now while treating Lyme to see if heart block improves -Follow BMP, magnesium and keep electrolytes replete-none needed #CKD stage III-creatinine stable around baseline at 1.7-1.8. 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 -Avoid nephrotoxins, renally dose medications -Okay to continue home HCTZ #HTN/HLD-no acute issues -Continue home HCTZ, atorvastatin, aspirin #Moderate SHASHI-he recently received CPAP and cannot tolerate full face mask or nasal pillows and refuses to wear it -Ordered for here in case he can try it especially given bradycardia and heart block #Anemia/Beta thalassemia/Leukocytosis-leukocytosis of 12k on admission may be secondary to stress response vs Lyme carditis-remains variable, now back up to 13; hemoglobin 12-13 and stable from previous, severely microcytic with MCV 67, RDW elevated at 17.5, normal platelets. Fe studies here normal. TSH normal -follow CBC #Lumbar back pain/cervicalgia-no acute issues, follows with pain management -Continue gabapentin which is also for periodic limb movement disorder #GERD-no acute issues -Continue PPI #BPH-no acute issues, recently had epididymal cyst removed and follows with urology -No medications #Depression-no acute issues -Continue trazodone and recently weaned off duloxetine # DM2-most recent HgbA1c 6.8%, not on medications at home. A1C here now down to 6.3% -Ordered NovoLog supplemental insulin and BSG's before meals and at bedtime DVT prophylaxis-SCDs Disposition-continued stay on PCU Admission and Anticipated Discharge Date Admission Date: January 26, 2025 Subjective Pt feeling very well. No lightheadedness, no chest pressure, no SOB. Is feeling bored. Continues to have frequent 2nd degree heart block with rates in the 40s. Oterwise, NSR with rates in 70s He is ambulating around the room without difficulty. Physical Exam Constitutional: WD/WN, vitals as above Neck: trachea midline, no thyromegaly Respiratory: normal respiratory effort, lungs clear to auscultation Cardiovascular: RRR, no murmur, no edema Chest (Breasts): Chest: normal inspection of chest Gastrointestinal (Abdomen): normal bowel sounds, soft, nontender, no hepatosplenomegaly Musculoskeletal: Extremities: extremities normal to inspection; no cyanosis and no clubbing Skin: no rashes, warm and dry Neurologic: moves all extremities and awake; no focal motor deficits Psychiatric: A+Ox3, euthymic affect Lymphatic: no lymphedema Results & Data Results & Data Vital Signs (Past 12 Hours) Vital Signs Temp Pulse Resp BP Pulse Ox O2 Del Method 01/28/25 15:00 61 01/28/25 10:53 36.5 C 45 L 20 160/82 H 98 Room Air 01/28/25 07:44 36.8 C 51 L 20 138/70 96 Room Air Laboratory Results CBC, BMP, magnesium reviewed PG Care Time/CCT Total # of Minutes Spent Total Time Spent with Patient: Total time spent is greater than 50% in coordination of care (as documented) at patient's floor/unit and/or counseling patient: Coding Level of Care Code 41053 SUB INP/OBS CARE 2/35MIN Diagnoses Lyme carditis A69.29 Second degree heart block I44.1 Pre-syncope R55 Chest pain R07.9
[2025-01-29 06:45] LABS: Hematocrit (blood only) 44.7 % (42.0-52.0); Hemoglobin 14.1 g/dl (14.0-18.0); Mean Corpuscular Hgb Conc 31.5 g/dL (32.0-36.0); Mean Corpuscular Volume 66.4 fL (80.0-100.0); RDW Coefficient of Variation 17.3 % (11.5-14.5); RDW Standard Deviation 35.9 fL (36.4-46.3); Red Blood Count 6.73 M/uL (4.70-6.10); White Blood Count 14.76 K/ul (4.8-10.8)
[2025-01-29 07:03] LABS: Albumin Globulin Ratio 1.6 (0.9-2); Albumin Level 4.7 gm/dl (3.4-5.0); BUN Creatinine Ratio 21.7 (10-20); Bilirubin,Total 0.6 mg/dl (0.2-1.0); Calcium 9.4 mg/dl (8.6-10.3); Creatinine Clr Calc Pharmacy 46.4 ml/min; Globulin 2.9 gm/dl (2.5-4.0); Magnesium 2.4 mg/dl (1.7-2.4); Total Protein 7.6 gm/dl (6.0-8.3)
[2025-01-29 07:05] LABS: Mean Platelet Volume 9.7 fL (9.4-12.4); Platelet Count 242 K/uL (130-400)
[2025-01-29 07:30] LABS: Basophilic Stippling 1+; Basophils % (auto) 0.7 %; Eosinophils # (auto) 0.42 K/uL (0.00-0.50); Eosinophils % (auto) 2.8 %; Immature Granulocytes # (auto) 0.27 K/uL (0.01-0.20); Immature Granulocytes % (auto) 1.8 %; Lymphocytes # (auto) 2.54 K/uL (1.20-3.40); Lymphocytes % (auto) 17.2 %; Microcytosis Present; Monocytes # (auto) 1.28 K/uL (0.11-0.59); Monocytes % (auto) 8.7 %; Neutrophils # (auto) 10.15 K/uL (1.40-6.50); Neutrophils % (auto) 68.8 %; Ovalocytes 1+; Polychromasia 1+; Tear Drop Cells 2+
[2025-01-29] MEDS: ACETAMINOPHEN 325 MG TAB PO PRN (08:15)
--- NOTE | 2025-01-29 13:12 | Cardiology Progress Note ---
Date of Service January 29, 2025 Assessment & Plan (1) Second degree heart block: Plan: -Episodes appear to be decreasing. -Secondary to Lyme disease. -Should continue to improve with intravenous ceftriaxone. -Echocardiogram notes normal left ventricular systolic function. (2) HTN (hypertension): Plan: -Adequate control on current regimen. -Borderline left hypertrophy on current echocardiogram. (3) Hyperlipemia: Plan: -Continue atorvastatin. Admission and Anticipated Discharge Date Admission Date: January 26, 2025 Subjective The patient is resting comfortably in bed without complaints of chest pain, dyspnea, syncope, or presyncope. Has ambulated in the room without difficulty. Physical Exam 2 Physical Exam: In general this is a well-developed well-nourished white male in no acute distress. HEENT exam is negative. Neck reveals normal carotid upstrokes without bruits. Jugular venous pressure is flat at 90. There is no thyromegaly. Cardiovascular exam reveals a regular rhythm with a normal S1 and S2. No S3, S4, or murmurs are noted. Lungs are clear without rales, rhonchi, or wheezes. Abdomen is soft without bruits. Extremities reveal intact radial artery and posterior tibial pulses bilaterally. There is no peripheral edema. Results & Data Vital Signs (Past 12 Hours) Vital Signs Temp Pulse Resp BP Pulse Ox O2 Del Method O2 Flow Rate 01/29/25 10:53 36.6 C 44 L 20 148/73 H 98 Room Air 01/29/25 10:00 78 18 Nasal Cannula 4 01/29/25 07:44 36.4 C L 45 L 20 149/73 H 96 Room Air 01/29/25 03:30 36.8 C 64 18 165/95 H 95 Room Air Diagnostic Findings monitoring analyst notes intermittent episodes of 2-1 conduction. PG Care Time/CCT Total # of Minutes Spent Total Time Spent with Patient: Total time spent is greater than 50% in coordination of care (as documented) at patient's floor/unit and/or counseling patient: Coding Level of Care Code 92836 SUB INP/OBS CARE 3/50MIN Diagnoses Second degree heart block I44.1 HTN (hypertension) I10 Hyperlipemia E78.5
--- NOTE | 2025-01-29 17:48 | Hospitalist Progress Note ---
Date of Service January 29, 2025 Assessment & Plan (1) Lyme carditis: (2) Second degree heart block: (3) Pre-syncope: (4) Chest pain: Plan This patient is a 64-year-old male with a history of CKD stage III, HTN, SHASHI, iron deficiency anemia, depression, prediabetes, lumbar back pain and neck pain, gout, GERD, BPH, and HLD who presents to the ER with chest pain and feeling of lightheadedness and SOB especially with ambulation for 4 days prior to admission. He has felt at times like he was about to pass out with standing up. The chest pain is constant and dull but at times felt like an elephant sitting on his chest. In the ER, he was noted to have sinus bradycardia with first- degree AV block at rest but with ambulation went into a second-degree heart block Mobitz type II. This went away after he returned to rest. He is not on any AV angela murray medications. #Second degree heart block/presyncope/chest pain/Lyme carditis-presents with 4 days of constant dull chest pain, intermittent lightheadedness especially with ambulation along with SOB. Went into second-degree Mobitz 2 heart block in the ER with associated symptoms. Troponin negative serially x 3, CXR negative, ECHO normal. BPs normal. TSH normal. He is not on any AV angela blocking medications. No recent fevers or chills or infectious symptoms. Lyme IgG positive, IgM negative, but had neg Lyme IgG on previous testing in 2021. 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 He continues to have frequent 2nd degree AVB on tele after 3 days of treatment with ceftriaxone, but they have lessened in frequency. As per my d/w Cardiology, would expect to see improvement in the near future on treatment Leukocytosis persists -continue ceftriaxone 2000mg IV q24h x 21 days-will need home IV abx set up -Place ultrasound-guided peripheral IV -continued stay on PCU for tele monitoring -Consult cardiology appreciated- hold off on pacer for now while treating Lyme to see if heart block improves -Follow BMP, magnesium and keep electrolytes replete-none needed today #CKD stage III-creatinine slightly increased above baseline at 1.89. 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 Fe studies here normal. TSH normal -follow CBC #Lumbar back pain/cervicalgia-no acute issues, follows with pain management -Continue gabapentin which is also for periodic limb movement disorder #GERD-no acute issues -Continue PPI #BPH-no acute issues, recently had epididymal cyst removed and follows with urology -No medications #Depression-no acute issues -Continue trazodone and recently weaned off duloxetine # DM2-most recent HgbA1c 6.8%, not on medications at home. A1C here now down to 6.3% -Continue NovoLog supplemental insulin and BSG's before meals and at bedtime DVT prophylaxis-SCDs Disposition-continued stay on PCU, patient hopeful for discharge on 01/30 Admission and Anticipated Discharge Date Admission Date: January 26, 2025 Subjective Patient feels well. He had an episode where he woke up this morning feeling some mild chest pressure which went away with Tylenol. Otherwise, denies lightheadedness, no shortness of breath or fatigue, no headaches. He is anxious for discharge. Telemetry with frequent Mobitz type II secondary AV block but less frequent than the previous 24 hours. I discussed his care with cardiology Physical Exam Constitutional: WD/WN, vitals as above Neck: trachea midline, no thyromegaly Respiratory: normal respiratory effort, lungs clear to auscultation Cardiovascular: RRR, no murmur, no edema Chest (Breasts): Chest: normal inspection of chest Gastrointestinal (Abdomen): normal bowel sounds, soft, nontender, no hepatosplenomegaly Musculoskeletal: Extremities: extremities normal to inspection; no cyanosis and no clubbing Skin: no rashes, warm and dry Neurologic: moves all extremities and awake; no focal motor deficits Psychiatric: A+Ox3, euthymic affect Lymphatic: no lymphedema Results & Data Results & Data Vital Signs (Past 12 Hours) Vital Signs Temp Pulse Resp BP Pulse Ox O2 Del Method O2 Flow Rate 01/29/25 15:16 36.7 C 43 L 20 129/88 97 Room Air 01/29/25 10:53 36.6 C 44 L 20 148/73 H 98 Room Air 01/29/25 10:00 78 18 Nasal Cannula 4 01/29/25 07:44 36.4 C L 45 L 20 149/73 H 96 Room Air Laboratory Results CBC, BMP, LFTs, magnesium reviewed PG Care Time/CCT Total # of Minutes Spent Total Time Spent with Patient: Total time spent is greater than 50% in coordination of care (as documented) at patient's floor/unit and/or counseling patient: Coding Level of Care Code 77170 SUB INP/OBS CARE 2/35MIN Diagnoses Lyme carditis A69.29 Second degree heart block I44.1 Pre-syncope R55 Chest pain R07.9
[2025-01-30 06:47] LABS: Hematocrit (blood only) 41.5 % (42.0-52.0); Hemoglobin 12.9 g/dl (14.0-18.0); Mean Corpuscular Hemoglobin 20.8 pg (25.0-34.0); Mean Corpuscular Hgb Conc 31.1 g/dL (32.0-36.0); Mean Corpuscular Volume 66.8 fL (80.0-100.0); RDW Coefficient of Variation 17.3 % (11.5-14.5); Red Blood Count 6.21 M/uL (4.70-6.10)
[2025-01-30 07:01] LABS: BUN Creatinine Ratio 22.1 (10-20); Calcium 9.1 mg/dl (8.6-10.3); Potassium 4.4 mmol/L (3.5-5.1)
[2025-01-30 07:04] LABS: Mean Platelet Volume 10.5 fL (9.4-12.4); Platelet Count 198 K/uL (130-400)
[2025-01-30 07:12] LABS: Basophils # (auto) 0.09 K/uL (0.00-0.20); Basophils % (auto) 0.7 %; Eosinophils # (auto) 0.43 K/uL (0.00-0.50); Eosinophils % (auto) 3.5 %; Immature Granulocytes # (auto) 0.33 K/uL (0.01-0.20); Immature Granulocytes % (auto) 2.7 %; Lymphocytes # (auto) 1.93 K/uL (1.20-3.40); Lymphocytes % (auto) 15.7 %; Microcytosis Present; Monocytes # (auto) 0.98 K/uL (0.11-0.59); Neutrophils # (auto) 8.54 K/uL (1.40-6.50); Neutrophils % (auto) 69.4 %; Ovalocytes 1+; Tear Drop Cells 2+
[2025-01-30] MEDS ORDERED: methylPREDNISolone 125 MG/2 ML VIAL IV STA (11:30)
[2025-01-30] MEDS: methylPREDNISolone 125 MG in SYRINGE 0 ML IV STA (12:05)
--- NOTE | 2025-01-30 12:16 | Cardiology Progress Note ---
Date of Service January 30, 2025 Assessment & Plan (1) Second degree heart block: Plan: -Frequency of episodes similar to yesterday. -Secondary to Lyme disease. -Should improve with intravenous ceftriaxone. -Consider trial of intravenous steroids (discussed with Dr. Pinto). -Echocardiogram notes normal left ventricular systolic function. (2) HTN (hypertension): Plan: -Adequate control on current regimen. -Borderline left hypertrophy on current echocardiogram. (3) Hyperlipemia: Plan: -Continue atorvastatin. Admission and Anticipated Discharge Date Admission Date: January 26, 2025 Subjective The patient is resting comfortably in bed without complaints of chest pain, dyspnea, syncope, or presyncope. Has been able to ambulate within the room w ithout difficulty. He is anxious for hospital discharge. Physical Exam Physical Exam: In general this is a well-developed well-nourished white male in no acute distress. HEENT exam is negative. Neck reveals normal carotid upstrokes without bruits. Jugular venous pressure is flat at 90. There is no thyromegaly. Cardiovascular exam reveals a regular rhythm with a normal S1 and S2. No S3, S4, or murmurs are noted. Lungs are clear without rales, rhonchi, or wheezes. Abdomen is soft without bruits. Extremities reveal intact radial artery and posterior tibial pulses bilaterally. There is no peripheral edema. Results & Data Vital Signs (Past 12 Hours) Vital Signs Temp Pulse Pulse Resp BP Pulse Ox O2 Del Method 01/30/25 10:00 42 L 01/30/25 08:00 36.6 C 85 78 20 119/79 98 Room Air 01/30/25 03:00 36.4 C L 66 18 139/83 97 Room Air Diagnostic Findings Telemetry continues to note intermittent episodes of 2-1 AV conduction. PG Care Time/CCT Total # of Minutes Spent Total Time Spent with Patient: Total time spent is greater than 50% in coordination of care (as documented) at patient's floor/unit and/or counseling patient: Coding Level of Care Code 04876 SUB INP/OBS CARE 3/50MIN Diagnoses Second degree heart block I44.1 HTN (hypertension) I10 Hyperlipemia E78.5
--- NOTE | 2025-01-30 13:20 | Hospitalist Progress Note ---
Date of Service January 30, 2025 Assessment & Plan (1) Lyme carditis: (2) Second degree heart block: (3) Pre-syncope: (4) Chest pain: Plan This patient is a 64-year-old male with a history of CKD stage III, HTN, SHASHI, iron deficiency anemia, depression, prediabetes, lumbar back pain and neck pain, gout, GERD, BPH, and HLD who presents to the ER with chest pain and feeling of lightheadedness and SOB especially with ambulation for 4 days prior to admission. He has felt at times like he was about to pass out with standing up. The chest pain is constant and dull but at times felt like an elephant sitting on his chest. In the ER, he was noted to have sinus bradycardia with first- degree AV block at rest but with ambulation went into a second-degree heart block Mobitz type II. This went away after he returned to rest. He is not on any AV angela murray medications. He was positive for Lyme IgG and was started on ceftriaxone, but has continued to have frequent 2nd degree AV heart block Mobitz 2. #Second degree heart block/presyncope/chest pain/Lyme carditis-presents with 4 days of constant dull chest pain, intermittent lightheadedness especially with ambulation along with SOB. Went into second-degree Mobitz 2 heart block in the ER with associated symptoms. Troponin negative serially x 3, CXR negative, ECHO normal. BPs normal. TSH normal. He is not on any AV angela blocking medications. No recent fevers or chills or infectious symptoms. Lyme IgG positive, IgM negative, but had neg Lyme IgG on previous testing in 2021. 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 He continues to have frequent 2nd degree AVB on tele since starting treatment ceftriaxone 01/26. As per my d/w Cardiology, would expect to see improvement in the near future on treatment Leukocytosis persists but coming down now -will trial IV steroids to help with inflammation of heart from carditis-Solu Medrol 125mg x 1 and then 60mg IV bid -continue ceftriaxone 2000mg IV q24h x 21 days-will need home IV abx set up-this is arranged and has US guided peripheral IV in place -continued stay on PCU for tele monitoring -Consult cardiology appreciated- hold off on pacer for now while treating Lyme to see if heart block improves -Follow BMP, magnesium and keep electrolytes replete-none needed today #CKD stage III-creatinine slightly increased above baseline at 1.89, HCTZ held, now improved to 1.7. 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 -overnight POx prior to discharge to at least get supplemental O2 hs at home -advised to discuss with Sleep Med about trial of increasing trazadone or trial of AMbien to help with tolerating CPAP at home -consider Inspire device for SHASHI #Anemia/Beta thalassemia/Leukocytosis-leukocytosis persists secondary to Lyme carditis; hemoglobin 12-13 and stable from previous, severely microcytic with MCV 67, RDW elevated at 17.5, normal platelets. Fe studies here normal. TSH normal -follow CBC #Lumbar back pain/cervicalgia-no acute issues, follows with pain management -Continue gabapentin which is also for periodic limb movement disorder #GERD-no acute issues -Continue PPI #BPH-no acute issues, recently had epididymal cyst removed and follows with urology -No medications #Depression-no acute issues -Continue trazodone and recently weaned off duloxetine # DM2-most recent HgbA1c 6.8%, not on medications at home. A1C here now down to 6.3% -Continue NovoLog supplemental insulin and BSG's before meals and at bedtime-he has not required any insulin thus far but now starting steroids so might need it DVT prophylaxis-SCDs Disposition-continued stay on PCU. Discussed care with girlfriend at bedside 01/30 and discussed care with Cardiology Admission and Anticipated Discharge Date Admission Date: January 26, 2025 Subjective Pt has no complaints. He is agreeable to ongoing stay due to ongoing frequent 2nd degree heart block. No lightheadedness, CP. Physical Exam Constitutional: WD/WN, vitals as above Neck: trachea midline, no thyromegaly Respiratory: normal respiratory effort, lungs clear to auscultation Cardiovascular: RRR, no murmur, no edema Chest (Breasts): Chest: normal inspection of chest Gastrointestinal (Abdomen): normal bowel sounds, soft, nontender, no hepatosplenomegaly Musculoskeletal: Extremities: extremities normal to inspection; no cyanosis and no clubbing Skin: no rashes, warm and dry Neurologic: moves all extremities and awake; no focal motor deficits Psychiatric: A+Ox3, euthymic affect Lymphatic: no lymphedema Results & Data Results & Data Vital Signs (Past 12 Hours) Vital Signs Temp Pulse Pulse Resp BP Pulse Ox O2 Del Method 01/30/25 11:30 36.8 C 68 18 124/68 96 Room Air 01/30/25 10:00 42 L 01/30/25 08:00 36.6 C 85 78 20 119/79 98 Room Air 01/30/25 03:00 36.4 C L 66 18 139/83 97 Room Air Laboratory Results CBC, BMP reviewed PG Care Time/CCT Total # of Minutes Spent Total Time Spent with Patient: Total time spent is greater than 50% in coordination of care (as documented) at patient's floor/unit and/or counseling patient: Coding Level of Care Code 86297 SUB INP/OBS CARE 3/50MIN Diagnoses Lyme carditis A69.29 Second degree heart block I44.1 Pre-syncope R55 Chest pain R07.9
[2025-01-30] MEDS: methylPREDNISolone 60 MG in SYRINGE 0 ML IV SCH (20:38)
[2025-01-30] MEDS ORDERED: methylPREDNISolone 1000 MG/16 ML IV SCH (21:00)
[2025-01-31 07:15] LABS: Alanine Aminotransferase 15 U/L (7-52); Albumin Globulin Ratio 1.8 (0.9-2); Albumin Level 4.4 gm/dl (3.4-5.0); Alkaline Phosphatase 72 U/L (34-104); Anion Gap 7 (3-11); Aspartate Aminotransferase 15 U/L (13-39); BUN Creatinine Ratio 24.7 (10-20); Bilirubin,Total 0.5 mg/dl (0.2-1.0); Blood Urea Nitrogen 40 mg/dl (6-23); C Reactive Protein < 0.50 mg/dl (0-0.5); Calcium 9.1 mg/dl (8.6-10.3); Carbon Dioxide 26 mmol/L (21-32); Chloride 105 mmol/L (98-107); Creatinine Clr Calc Pharmacy 54.2 ml/min; Globulin 2.5 gm/dl (2.5-4.0); Glucose 126 mg/dl (70-99(Fasting)); Magnesium 2.4 mg/dl (1.7-2.4); Potassium 4.5 mmol/L (3.5-5.1); Sodium 138 mmol/L (136-145); Total Protein 6.9 gm/dl (6.0-8.3)
[2025-01-31 07:29] LABS: Hematocrit (blood only) 40.8 % (42.0-52.0); Hemoglobin 12.9 g/dl (14.0-18.0); Mean Corpuscular Hgb Conc 31.6 g/dL (32.0-36.0); Mean Corpuscular Volume 66.4 fL (80.0-100.0); Mean Platelet Volume 9.3 fL (9.4-12.4); Platelet Count 217 K/uL (130-400); RDW Coefficient of Variation 16.8 % (11.5-14.5); RDW Standard Deviation 35.8 fL (36.4-46.3); Red Blood Count 6.14 M/uL (4.70-6.10); White Blood Count 18.01 K/ul (4.8-10.8)
[2025-01-31 07:34] LABS: Basophils # (auto) 0.03 K/uL (0.00-0.20); Basophils % (auto) 0.2 %; Eosinophils # (auto) 0.01 K/uL (0.00-0.50); Eosinophils % (auto) 0.1 %; Immature Granulocytes # (auto) 0.34 K/uL (0.01-0.20); Immature Granulocytes % (auto) 1.9 %; Lymphocytes # (auto) 1.13 K/uL (1.20-3.40); Lymphocytes % (auto) 6.3 %; Microcytosis Present; Monocytes # (auto) 0.83 K/uL (0.11-0.59); Monocytes % (auto) 4.6 %; Neutrophils # (auto) 15.67 K/uL (1.40-6.50); Neutrophils % (auto) 86.9 %; Tear Drop Cells 2+
--- NOTE | 2025-01-31 13:57 | Hospitalist Progress Note ---
Date of Service January 31, 2025 Assessment & Plan (1) Lyme carditis: (2) Second degree heart block: (3) Pre-syncope: (4) Chest pain: Plan This patient is a 64-year-old male with a history of CKD stage III, HTN, SHASHI, iron deficiency anemia, depression, prediabetes, lumbar back pain and neck pain, gout, GERD, BPH, and HLD who presents to the ER with chest pain and feeling of lightheadedness and SOB especially with ambulation for 4 days prior to admission. He has felt at times like he was about to pass out with standing up. The chest pain is constant and dull but at times felt like an elephant sitting on his chest. In the ER, he was noted to have sinus bradycardia with first- degree AV block at rest but with ambulation went into a second-degree heart block 2:1. This went away after he returned to rest. He is not on any AV angela murray medications. He was positive for Lyme IgG and was started on ceftriaxone, but has continued to have frequent 2nd degree AV heart block almost constantly since admission. He was started on high dose IV Solu Medrol 01/30 and now has been heart block free since 1999 on 01/30 #Second degree 2:1 heart block/presyncope/chest pain/Lyme carditis-presents with 4 days of constant dull chest pain, intermittent lightheadedness especially with ambulation along with SOB. Went into second-degree 2:1 heart block in the ER with associated symptoms. Troponin negative serially x 3, CXR negative, ECHO normal. BPs normal. TSH normal. He is not on any AV angela blocking medications. No recent fevers or chills or infectious symptoms. Lyme IgG positive, IgM negative, and had negative Lyme IgG on previous testing in 2021. 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 He continued to have almost constant 2nd degree AVB on tele since starting treatment with ceftriaxone 01/26 and mild leukocytosis persisted indicating inflammation Was started on empiric trial of IV steroids and now heart block has resolved since 1999 on 01/30 -continue Solu Medrol 60mg IV bid while hospitalized and plan to send home with po steroids on discharge -continue ceftriaxone 2000mg IV q24h x 21 days- home IV abx set up and has US guided peripheral IV in place -continued stay on PCU for tele monitoring -Consult cardiology appreciated- hold off on pacer for now while treating Lyme to see if heart block improves -plan to dc to home 02/01 if remains out of heart block and get MCOT placed in [place] [facility] office on Friday 02/02, with outpt f/u with Dr. Martinez of EP at patient's request (his girlfriend's father sees Dr. Martinez) #CKD stage III-creatinine slightly increased above baseline at 1.89, HCTZ held, now improved further to 1.6. 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 -overnight POx prior to discharge to at least get supplemental O2 hs at home -advised to discuss with Sleep Med about trial of increasing trazodone or trial of Ambien to help with tolerating CPAP at home -consider Inspire device for SHASHI #Anemia/Beta thalassemia/Leukocytosis-leukocytosis persists secondary to Lyme carditis and now up to 18 from IV steroids; hemoglobin 12-13 and stable from previous, severely microcytic with MCV 67, RDW elevated at 17.5, normal platelets. Fe studies here normal. TSH normal #Lumbar back pain/cervicalgia-no acute issues, follows with pain management -Continue gabapentin which is also for periodic limb movement disorder #GERD-no acute issues -Continue PPI #BPH-no acute issues, recently had epididymal cyst removed and follows with urology -No medications #Depression-no acute issues -Continue trazodone and recently weaned off duloxetine # DM2-most recent HgbA1c 6.8%, not on medications at home. A1C here now down to 6.3% -Continue NovoLog supplemental insulin as needed, and BSG's before meals and at bedtime-he has not required any insulin thus far but now on steroids so might need it DVT prophylaxis-SCDs Disposition-continued stay on PCU, but likely dc to home on 02/01. Discussed care with girlfriend at bedside 01/31 and discussed care with Cardiology Admission and Anticipated Discharge Date Admission Date: January 26, 2025 Anticipated date of discharge: 02/01/25 Subjective Pt feels great, has no complaints. No lightheadedness, CP, or SOB. Tele with no further 2:1 heart block since 1999 on 01/30, now only in NSR rates 60-90s Physical Exam Constitutional: WD/WN, vitals as above Neck: trachea midline, no thyromegaly Respiratory: normal respiratory effort, lungs clear to auscultation Cardiovascular: RRR, no murmur, no edema Musculoskeletal: Extremities: extremities normal to inspection; no cyanosis and no clubbing Skin: no rashes, warm and dry Neurologic: moves all extremities and awake; no focal motor deficits Psychiatric: A+Ox3, euthymic affect Results & Data Results & Data Vital Signs (Past 12 Hours) Vital Signs Temp Pulse Pulse Resp BP Pulse Ox O2 Del Method 01/31/25 12:18 36.7 C 82 18 146/86 H 95 Room Air 01/31/25 08:47 73 01/31/25 08:00 36.6 C 98 H 20 171/93 H 95 Room Air 01/31/25 03:31 36.8 C 83 18 151/95 H 97 Room Air Laboratory Results CBC, BMP, LFTs, magnesium, CRP reviewed PG Care Time/CCT Total # of Minutes Spent Total Time Spent with Patient: Total time spent is greater than 50% in coordination of care (as documented) at patient's floor/unit and/or counseling patient: Coding Level of Care Code 02996 SUB INP/OBS CARE 3/50MIN Diagnoses Lyme carditis A69.29 Second degree heart block I44.1 Pre-syncope R55 Chest pain R07.9
--- NOTE | 2025-01-31 14:57 | Cardiology Progress Note ---
Date of Service January 31, 2025 Assessment & Plan (1) Lyme carditis: (2) Second degree heart block: (3) Pre-syncope: Plan Agree with current plan including IV Abx as well as steroids. Follow on tele this pm. potentially DC to home in next 24 hours. Set up MCOT monitor for OP. Admission and Anticipated Discharge Date Admission Date: January 26, 2025 Subjective Pt feels great, has no complaints. No lightheadedness, CP, or SOB. Tele with no further 2:1 heart block since 1999 on 01/30, now only in NSR rates 60-90s Reviewed case with hospitalist service and patient. Consider doing MCOT to possibly DC to home. We also discussed the untreated SHASHI-he has tired CPAP in the past and did not tolerate. Review of Systems Review of Systems: All systems reviewed & are unremarkable except as noted in HPI & below Physical Exam Physical Exam: no change Results & Data Vital Signs (Past 12 Hours) Vital Signs Temp Pulse Pulse Resp BP Pulse Ox O2 Del Method 01/31/25 12:18 36.7 C 82 18 146/86 H 95 Room Air 01/31/25 08:47 73 01/31/25 08:00 36.6 C 98 H 20 171/93 H 95 Room Air 01/31/25 03:31 36.8 C 83 18 151/95 H 97 Room Air Laboratory Results Abnormal lab results 01/30/25 01/31/25 01/31/25 Range/Units 20:05 06:20 07:28 WBC 18.01 H (4.8-10.8) K/ul RBC 6.14 H (4.70-6.10) M/uL Hgb 12.9 L (14.0-18.0) g/dl Hct 40.8 L (42.0-52.0) % MCV 66.4 L (80.0-100.0) fL MCH 21.0 L (25.0-34.0) pg MCHC 31.6 L (32.0-36.0) g/dL RDW Std Deviation 35.8 L (36.4-46.3) fL RDW Coeff of Joi 16.8 H (11.5-14.5) % MPV 9.3 L (9.4-12.4) fL Neut # (Auto) 15.67 H (1.40-6.50) K/uL Lymph # (Auto) 1.13 L (1.20-3.40) K/uL [place] # (Auto) 0.83 H (0.11-0.59) K/uL Immature Gran # (Auto) 0.34 H (0.01-0.20) K/uL BUN 40 H (6-23) mg/dl Creatinine 1.62 H (0.6-1.4) mg/dl BUN/Creatinine Ratio 24.7 H (10-20) Glucose 126 H (70-99(Fasting)) mg/dl POC Glucose 181 H 122 H (70-99) mg/dl 01/31/25 Range/Units 11:20 WBC (4.8-10.8) K/ul RBC (4.70-6.10) M/uL Hgb (14.0-18.0) g/dl Hct (42.0-52.0) % MCV (80.0-100.0) fL MCH (25.0-34.0) pg MCHC (32.0-36.0) g/dL RDW Std Deviation (36.4-46.3) fL RDW Coeff of Joi (11.5-14.5) % MPV (9.4-12.4) fL Neut # (Auto) (1.40-6.50) K/uL Lymph # (Auto) (1.20-3.40) K/uL [place] # (Auto) (0.11-0.59) K/uL Immature Gran # (Auto) (0.01-0.20) K/uL BUN (6-23) mg/dl Creatinine (0.6-1.4) mg/dl BUN/Creatinine Ratio (10-20) Glucose (70-99(Fasting)) mg/dl POC Glucose 156 H (70-99) mg/dl
[2025-01-31 23:08] VITALS: RESP 18
[2025-02-01 08:24] VITALS: TEMP 97.7; O2SAT 96
--- NOTE | 2025-02-01 10:38 | Cardiology Progress Note ---
Date of Service February 01, 2025 Assessment & Plan (1) Lyme carditis: (2) Second degree heart block: (3) HTN (hypertension): (4) Pre-syncope: Plan I question if the heart block was truly related to the Lyme carditis versus the the differential could also be related to his untreated sleep apnea. If he continues to have heart block he may also need to have the sleep apnea evaluated. Hopefully he is not going to require a pacemaker. I think he is stable for discharge today. The case was discussed with Dr. Pinto. Moisés will follow-up with Dr. Morales in the office tomorrow to have a monitor placed. Thank you for allowing me to participate in his care. Admission and Anticipated Discharge Date Admission Date: January 26, 2025 Cosme Curiel was seen at bedside along with his . He is feeling well. His monitors were reviewed he has had no further heart block overnight. I suspect that he is stable to be discharged at this time. Dr. Morales was to have him wear a event monitor and he will have to go to his office tomorrow morning to have that placed. He will continue on a short course of steroids as per the primary service as well as the IV antibiotics. Review of Systems Review of Systems: All systems reviewed & are unremarkable except as noted in HPI & below Physical Exam Physical Exam: Without change Results & Data Vital Signs (Past 12 Hours) Vital Signs Temp Pulse Pulse Resp BP Pulse Ox Pulse Ox 02/01/25 08:23 36.5 C 86 18 154/83 H 96 02/01/25 07:11 57 L 02/01/25 05:28 97 02/01/25 03:24 36.8 C 75 18 146/75 H 97 02/01/25 02:41 95 01/31/25 23:07 36.9 C 71 18 128/76 98 O2 Del Method O2 Del Method 02/01/25 08:23 Room Air 02/01/25 07:11 02/01/25 05:28 Room Air 02/01/25 03:24 Room Air 02/01/25 02:41 Room Air 01/31/25 23:07 Room Air Laboratory Results Abnormal lab results 01/31/25 01/31/25 01/31/25 Range/Units 11:20 16:06 20:13 POC Glucose 156 H 140 H 165 H (70-99) mg/dl 02/01/25 Range/Units 07:46 POC Glucose 122 H (70-99) mg/dl
--- NOTE | 2025-02-01 11:34 | Discharge Summary ---
Discharge Summary Date of Service February 01, 2025 Principal Dx & Hospital Course #1 = Principal Diagnosis (1) Lyme carditis: (2) Second degree heart block: (3) Pre-syncope: (4) Chest pain: Plan This patient is a 64-year-old male with a history of CKD stage III, HTN, SHASHI, iron deficiency anemia, depression, prediabetes, lumbar back pain and neck pain, gout, GERD, BPH, and HLD who presents to the ER with chest pain and feeling of lightheadedness and SOB especially with ambulation for 4 days prior to admission. He has felt at times like he was about to pass out with standing up. The chest pain is constant and dull but at times felt like an elephant sitting on his chest. In the ER, he was noted to have sinus bradycardia with first- degree AV block at rest but with ambulation went into a second-degree heart block 2:1. This went away after he returned to rest. He is not on any AV angela murray medications. He was positive for Lyme IgG and was started on ceftriaxone, but has continued to have frequent 2nd degree AV heart block almost constantly since admission. He was started on high dose IV Solu Medrol 01/30 and now has been heart block free since 1999 on 01/30 #Second degree 2:1 heart block/presyncope/chest pain/Lyme carditis-presents with 4 days of constant dull chest pain, intermittent lightheadedness especially with ambulation along with SOB. Went into second-degree 2:1 heart block in the ER with associated symptoms. Troponin negative serially x 3, CXR negative, ECHO normal. BPs normal. TSH normal. He is not on any AV angela blocking medications. No recent fevers or chills or infectious symptoms. Lyme IgG positive, IgM negative, and had negative Lyme IgG on previous testing in 2021. 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 He continued to have almost constant 2nd degree AVB on tele despite starting treatment with ceftriaxone 01/26 and mild leukocytosis persisted indicating inflammation Was started on empiric trial of IV steroids on 01/30 and now heart block has resolved since 1999 on 01/30 -continue prednisone 40mg daily x 2 days then decrease by 10mg q2 days until gone -continue ceftriaxone 2000mg IV q24h x 21 days total through 02/16- home IV abx set up and has US guided peripheral IV in place -check once weekly CBC< CMP, ESR while on abx-with home health and results to PCP -Consult cardiology appreciated- hold off on pacer for now while treating Lyme to see if heart block improves -plan to dc to home 02/01 and get MCOT placed in [facility] office on Friday 02/02, with outpt f/u with Dr. Martinez of EP at patient's request (his girlfriend's father sees Dr. Martinez) within 1-2 weeks #CKD stage III-creatinine slightly increased above baseline at 1.89, HCTZ held, now improved further to 1.6. 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 No edema -Avoid nephrotoxins, renally dose medications -ok to resume home HCTZ after discharge #HTN/HLD-no acute issues, BPs mildly elevated on steroids and with holding HCTZ --can resume HCTZ on discharge as Antique Refinisher improved to baseline -Continue home atorvastatin, aspirin #Moderate SHASHI-he recently received CPAP and cannot tolerate full face mask or nasal pillows and refuses to wear it. -overnight POx prior to discharge was normal-lowest POx 90% but he thinks he didn't sleep much through the study and also reports elevated HOB to 30 degrees helps his snoring-plan to apply wooden blocks to head of bed at home -advised to discuss with Sleep Med about trial of increasing trazodone or trial of Ambien to help with tolerating CPAP at home -consider Inspire device for SHASHI #Anemia/Beta thalassemia/Leukocytosis-leukocytosis persists secondary to Lyme carditis and now up to 18 from IV steroids; hemoglobin 12-13 and stable from previous, severely microcytic with MCV 67, RDW elevated at 17.5, normal platelets. Fe studies here normal. TSH normal #Lumbar back pain/cervicalgia-no acute issues, follows with pain management -Continue gabapentin which is also for periodic limb movement disorder #GERD-no acute issues -Continue PPI #BPH-no acute issues, recently had epididymal cyst removed and follows with urology -No medications #Depression-no acute issues -Continue trazodone and recently weaned off duloxetine # DM2-most recent HgbA1c 6.8%, not on medications at home. A1C here now down to 6.3% diet control at home DVT prophylaxis-SCDs Disposition- dc to home on 02/01. Discussed care with girlfriend at bedside 02/01 and discussed care with Cardiology again on 02/01 Notes For Next Care Provider Follow up once weekly CBC, CMP, ESR while on Rocephin Ensure gets MCOT on Friday 02/02 at Cardiology office Medication Changes From Visit see list Admission HPI Per Admitting Provider This patient is a 64-year-old male with a history of CKD stage III, HTN, SHASHI, iron deficiency anemia, depression, prediabetes, lumbar back pain and neck pain, gout, GERD, BPH, and HLD who presents to the ER with chest pain and feeling of lightheadedness and SOB especially with ambulation. This has been going on for the last 4 days. He has felt at times like he was about to pass out with standing up. The chest pain is constant and dull but at times felt like an elephant sitting on his chest. In the ER, he was noted to have sinus bradycardia with first-degree AV block at rest but with ambulation went into a second-degree heart block Mobitz type II. This went away after he returned to rest. He is not on any AV angela murray medications. I discussed his care with cardiology upon admission and he will be evaluated for need for pacemaker marta cement. Discharge Exam Constitutional WD/WN, vitals as above Respiratory normal respiratory effort, lungs clear to auscultation Cardiovascular RRR, no murmur, no edema Neurologic moves all extremities and awake; no focal motor deficits Psychiatric A+Ox3, euthymic affect Discharge Plan Discharge Items Patient Disposition: Home - Home Health Services Reason For Visit: HEART BLOCK,PRESYNCOPE Discharge Diagnosis: Second degree 2:1 heart block Lyme carditis Presyncope Condition on Discharge: Good Activity: Resume your previous activity Bathing Comment: Keep IV dry Driving/Machine Use: No limitations Non-emergency contact: Primary Care Provider and Rocket Test Fire Worker Call non-emergency contact if: you have any medication questions and your symptoms worsen Follow-up/Referrals: Katie Persaud MD [Primary Care Provider] - (Follow up within 1-2 weeks- please call for an appointment) Daniel Martinez MD [Physician] - (Please follow up within 1-2 weeks- please call for an appointment) Diet: Carb Consistent or DM2 Addtl Attending Provider Instructions: Please finish out a 3 week course of IV ceftriaxone for the Lyme carditis. You will have once weekly blood work drawn with results to be sent to your PCP for review. Please finish out the course of prednisone for the carditis. You will need to go to the [facility] office tomorrow (please call beforeha nd) to get a heart monitor placed as per Dr. Morales's instructions. Please then schedule an appointment with Dr. Martinez for follow up for your heart block. If you develop lightheadedness, chest pressure, pass out, or have any other new or acute concerns, please return to the hospital. Pending Studies at Discharge: No Stand-Alone Forms: My [facility] [employer], Smoking Cessation Medications and DC Order Prescriptions: New prednisone 10 mg tablet 40 mg PO DAILY Qty: 20 0RF Rx Instructions: x 2 days then decrease by 10mg daily q2 days until gone ceftriaxone 2 gram recon soln 2 g IV DAILY 15 Days Continued omeprazole 40 mg capsule,delayed release(DR/EC) 40 mg PO QAM Qty: 90 1RF allopurinol 100 mg tablet 100 mg PO QAM Qty: 90 3RF atorvastatin 20 mg tablet 20 mg PO HS Qty: 90 3RF hydrochlorothiazide 25 mg tablet 25 mg PO QAM Qty: 90 3RF trazodone 150 mg tablet 150 mg PO HS Qty: 90 3RF aspirin [Aspir-Low] 81 mg Tablet,Delayed Release (Dr/Ec) 81 mg PO QAM gabapentin 100 mg capsule 100 mg PO QPM Discharge Orders: Discharge Order (Routine); Ordered 02/01/25 Ordered By: Iva Alvarez/Other Patient Handouts: Prediabetes, 5 Steps for Eating Healthier Admission Data Admit Date/Time: 01/26/25 19:49 Attending Provider: Iva Pinto Admit Provider: Iva Pinto Primary Care Provider: Katie Persaud Other Providers: Iva Pinto; Kolton Vidales Hospital Stay Data Consultations 01/26/25 18:17 ED Decision to Admit Stat 01/26/25 22:04 Consult Cardiology Routine Diagnostic Imagining Performed ECHO Pending Results Patient Have Any Pending Studies at Discharge: No Discharge Instructions Given to Patient (Per Discharging Provider) Please finish out a 3 week course of IV ceftriaxone for the Lyme carditis. You will have once weekly blood work drawn with results to be sent to your PCP for review. Please finish out the course of prednisone for the carditis. You will need to go to the [facility] office tomorrow (please call beforehand) to get a heart monitor placed as per Dr. Morales's instructions. Please then schedule an appointment with Dr. Martinez for follow up for your heart block. If you develop lightheadedness, chest pressure, pass out, or have any other new or acute concerns, please return to the hospital. Total Time Total Time Spent Total Time Spent (In Minutes): 35 min Total Time Includes: Examination of the Patient, Discharge Planning, Medication Reconciliation, Communication With Other Providers and Other Coding Level of Care Code 21048 INP/OBS DISCH >30 MIN Diagnoses Lyme carditis A69.29 Second degree heart block I44.1 Pre-syncope R55 Chest pain R07.9
[2025-02-01 11:37] VITALS: BP 146/85; PULSE 73
== END 2025-02-01 12:14 | disposition home health service (06) | DRG 309 ==
LOC: SUATTDRO → ED 13:40 → 2E 19:49

== ENCOUNTER 2025-03-05 12:46 | Observation (INO) ==
--- NOTE | 2025-03-05 13:23 | History & Physical Bridge Note ---
Date of Service March 05, 2025 History & Physical Bridge Note I have examined the patient, reviewed the History & Physical and in the interval since the performance of the History & Physical I have noted the following changes of clinical significance: no changes noted. 2:1 heart block
--- NOTE | 2025-03-05 13:24 | Pre Anesthesia Assessment ---
Date of Service March 05, 2025 Pre Sedation Assessment Vital Signs Pulse Resp BP Pulse Ox O2 Del Method 03/05/25 13:10 46 L 14 161/83 H 96 Room Air Cardiovascular + bradycardic Respiratory + respiratory effort normal Pre-Sedation Airway Assessment Smoking Status: Never smoker Hx Sleep Apnea: No Hx Difficult Intubation: No Short, Thick Neck: No Thyromental Distance: > or= 3.5 Finger Breadths Oral Cavity: + WNL Mallampati Class: III ASA: ASA3 NPO Status Date of Last Intake of Fluids: 03/04/25 Time of Last Intake of Fluids: 18:00 Date of Last Intake of Solid Food: 03/04/25 Time of Last Intake of Solid Foods: 18:00 Procedure Planning Contraindications for Sedation: none Current Medications Reviewed: Yes Notes The planned sedation has been discussed with the patient. Informed Consent was obtained. I have identified the patient, determined the appropriateness of sedation and have assessed the patient immediately prior to the procedure. All medicine(s) and interventions are by my order.
[2025-03-05] MEDS: BUPIVACAINE 0.25% PF 30 ML VIAL ONE (13:51)
[2025-03-05] MEDS: WATER, STERILE FOR INJ 10 ML VIAL ONE (13:51)
[2025-03-05] MEDS: LIDOCAINE 1% LOCAL 20 ML VIAL ONE (13:51)
[2025-03-05] MEDS: VANCOMYCIN HCL 1000MG/20ML VIAL ONE (13:51)
[2025-03-05] MEDS: ceFAZolin 330 MG/ML 1 GM VIAL ONE (13:52)
--- NOTE | 2025-03-05 14:33 | Post Anesthesia Assessment ---
Date of Service March 05, 2025 Post Sedation Assessment Vital Signs Pulse Resp BP Pulse Ox O2 Del Method 03/05/25 13:10 46 L 14 161/83 H 96 Room Air Recovery Score Activity: Moves 4 extremities Respiration: Deep Breath/Cough Circulation: +/-20% PreAnes Value Consciousness: Arouseable (by name) Oxygen Saturation: O2 needed for >90% Discharge Sedation Level of Care: Fast Track Phase II Post Sedation Plan On clinical assessment, the patient appears to have tolerated the sedation without complications. Patient is recovering as anticipated. Patient will continue to be monitored by nursing and may be discharged when sedation discharge criteria are met per below protocol. Upon Completions of procedure up to 15 minutes continue every 5 minute vital signs and the P.A.R. score; then discharge to a Phase I or Fast Track to Phase II per the following guidelines: * Discharge Patient to appropriate Phase II area if PAR is 8 or greater or return to pre- procedure baseline. The post - procedure orders will be as d irected. * If PAR score is less than 8 or not return to pre-procedure baseline then patient will follow Phase I monitoring till PAR is reached for Phase II. The Phase I may be done in procedure room or may call to secure a Phase I area. * If naloxone or flumazenil are used for reversal, hold in Phase I for continued monitoring from when last reversal dose was given for a minimum of 60 minutes or longer pending the nurse and/or physician discretion of patient condition before discharge to Phase II. Please call the Sedation Physician to re-evaluate and complete post-note for discharge to Phase II area. Do NOT discharge from procedure sedation or Phase 1 until post- sedation evaluation note is complete by procedure /sedation MD Sedation Discharge Instructions to be given to the patient at discharge to home.
--- NOTE | 2025-03-05 14:33 | Electrophysiology Report ---
Date of Service March 05, 2025 Electrophysiology Procedure Electrophysiology Procedure Report Procedure performed: Implantation of dual-chamber permanent pacemaker with septal pacing lead Staff roller skater: Daniel Martinez MD Indication: The patient is 65-year-old gentleman with a history of AV angela disease. Initially felt to be related to Lyme disease, but outpatient monitoring revealed persistent AV block consistent with Mobitz 2. Had associated bradycardia and symptoms. Was felt to be a good candidate for permanent pacemaker due to symptomatic nonreversible AV node dysfunction. Dual- chamber device was selected and is currently in sinus rhythm and we wish to maintain AV synchrony. Procedure in detail: The patient was informed of the risks benefits and alternatives to the intended procedure and she wished to proceed. He was taken to the electrophysiology suite in a fasting state. A preoperative antibiotic had been administered. The patient was monitored electrocardiographically throughout today's procedure and conscious sedation was administered per protocol. The left upper pectoral area was prepped and draped in usual sterile fashion. This area was anesthetized using subcutaneous administration of a xylocaine solution. An incision was made at this site and carried down to the prepectoralis fascia using sharp dissection. Electrocautery was also employed for dissection as well as for hemostasis. A device pocket was fashioned tissues above the pectoralis muscle. Subsequent to this maneuver the left axillary vein was accessed using modified Seldinger technique. A sheath was placed over guidewire and used to facilitate passage of a guiding catheter for mapping of the interventricular septum. Once an appropriate location was identified a pacing lead was advanced into the interventricular septum until the appropriate electrophysiologic characteristics were obtained. At this point the guiding catheter was removed. The proximal portion of the lead was then sutured the prepectoralis fascia using nonabsorbable suture. A sheath was placed over the remaining guidewire and used to facilitate passage of a pacing lead to the right atrium under fluoroscopic guidance. Adequate sensing and threshold parameters were obtained prior to active fixation of this lead to the endocardial surface. The proximal portion of the leads were then sutured the prepectoral fascia using nonabsorbable suture. The device pocket was irrigated with antibiotic solution. The leads were then attached to the device. The device and leads were then placed in the pocket and pocket was closed in 3 layers of absorbable suture. Steri-Strips and sterile dressing were applied. The device was tested noninvasively prior to conclusion the procedure. The patient tolerated procedure well there no immediate complications. Equipment used: New pulse generator: Family [employer] Counselor Medtronic. Model number: [id number] serial number [id number] Right atrial lead: Family [employer] Counselor Medtronic. Model number: [id number] serial number [id number] Right ventricular lead: Family [employer] Counselor Medtronic. Model number: 3830 serial number [id number] Measured data: Right atrial lead: P waves measured 2.9 mV. Pacing threshold 0.75 V at 0.4 ms with a pacing PINS of 608 ohms Right ventricular lead: I was measure 11.4 mV. Pacing threshold 0.5 V at 0.4 ms with a pacing point 36 ohms Impression: Successful implantation of dual-chamber permanent pacemaker with septal pacing lead [facility] Electrophysiology codes Pacing Procedure 1: Pacin Insert/Replace Pacer A & V PG Moderate Sedation Codes Moderate Sedation Codes Procedure 1: Sedation/Anesthesia: 50011 Mod Sedation by the same physician;Init15 Min Child Age 5 & Up Procedure 2: Sedation/Anesthesia: 68905 Mod Sedation by the same physician; Ea [id number] Minutes
[2025-03-05] MEDS: fentaNYL citrate PF 100 MCG/2 ML VIAL ONE (15:54)
[2025-03-05] MEDS: MIDAZOLAM HCL 5 MG/ML 1 ML VIAL ONE (15:55)
[2025-03-05] MEDS: oxyCODONE HCL IR 5 MG TAB (IMMEDIATE RELEASE) PO PRN (16:57)
[2025-03-05] MEDS: PNEUMOCOCCAL VACCINE (PCV20) 20-VAL CONJ-DIP CRM/PF 0.5 ML SYR IM ONE (17:01)
[2025-03-05] MEDS: ACETAMINOPHEN 325 MG TAB PO PRN (18:43)
[2025-03-05] MEDS: IBUPROFEN 800 MG TAB PO STA (18:44)
[2025-03-05] MEDS: traZODone HCL 50 MG TAB PO SCH (20:30)
[2025-03-05] MEDS: ATORVASTATIN 20 MG TAB PO SCH (20:30)
[2025-03-05] MEDS: GABAPENTIN 100 MG CAP PO SCH (20:30)
[2025-03-05] MEDS: ceFAZolin 1000MG 1,000 MG/7.5 ML SYR IV ONE (21:22)
[2025-03-06 03:32] VITALS: RESP 18
[2025-03-06 07:26] VITALS: BP 142/89; PULSE 72; TEMP 98.1; O2SAT 96
[2025-03-06] MEDS: hydroCHLOROthiazide 25 MG TAB PO SCH (08:09)
[2025-03-06] MEDS: SERTRALINE HCL 50 MG TABLET PO SCH (08:09)
[2025-03-06] MEDS: PANTOprazole 40 MG TAB PO SCH (08:09)
[2025-03-06] MEDS: allopurinoL 100 MG TAB PO SCH (08:10)
[2025-03-06] MEDS: ASPIRIN 81 MG ECTAB PO SCH (08:10)
--- NOTE | 2025-03-06 08:11 | Discharge Summary ---
Date of Service March 06, 2025 Principal Diagnosis Heart block Discharge Exam Evaluation of the left pectoral implant site did not reveal any evidence of hematoma or swelling. No bleeding. No erythema. Discharge Data Allergies Allergy/AdvReac Type Severity Reaction Status Date / Time No Known Allergies Allergy Verified 03/09/25 09:56 Procedures Performed Operation Date: 03/05/25 14:00 Actual Procedures p Pacer with A/V Leads (Dual) - Daniel Martinez MD Ordered Studies 03/05/25 06:30 EP Lab Images for PACS ONCE Hospital Course (1) Second degree heart block: Plan On the day of admission the patient underwent implantation of a dual-chamber Medtronic pacemaker. Left bundle pacing lead was implanted. The procedure was uncomplicated. No complications overnight. On day of discharge evaluation of the device revealed good function about the atrial and ventricular leads. Chest x-ray demonstrated stability of the leads without evidence of pneumothorax. Total Time Total Time Spent Total Time Spent (In Minutes): 20 Discharge Plan Discharge Items Patient Disposition: Home - Self-Care Reason For Visit: DCP Discharge Diagnosis: heart block Activity: Per Instructions section Activity Comment: No lifting left arm above shoulder or behind neck for 6 weeks Lifting: No more than 10 pounds Bathing: Keep incision dry Bathing Comment: Keep wound dry and steri strip intact until f/u Exercise/Sports: Rest today Driving/Machine Use: Resume 1 day after discharge Non-emergency contact: Dry Press Operator Helper Call non-emergency contact if: you have any medication questions, your pain is not controlled, you have a fever, your wound has increased redness, your wound has increased drainage and your wound pain has increased Follow-up/Referrals: Katie Persaud MD [Primary Care Provider] - Diet: Carb Consistent or DM2 Addtl Attending Provider Instructions: Do not resume eliquis until tomorrow morning March 07 Pending Studies at Discharge: No Stand-Alone Forms: My [facility], Smoking Cessation Medications and DC Order Prescriptions: New oxycodone 5 mg tablet 5 mg PO Q4H PRN (Reason: pain) Qty: 5 0RF Continued omeprazole 40 mg capsule,delayed release(DR/EC) 40 mg PO QAM Qty: 90 1RF allopurinol 100 mg tablet 100 mg PO QAM Qty: 90 3RF atorvastatin 20 mg tablet 20 mg PO HS Qty: 90 3RF hydrochlorothiazide 25 mg tablet 25 mg PO QAM Qty: 90 3RF trazodone 150 mg tablet 150 mg PO HS Qty: 90 3RF sertraline 50 mg tablet 50 mg PO DAILY Qty: 30 5RF (DME) blood-glucose meter [OneTouch Verio Flex meter] Misc See Rx Instructions .Route Qty: 1 0RF Rx Instructions: As directed-test daily E11.9 (DME) OneTouch Verio test strips Strip See Rx Instructions .Route Qty: 50 1RF Rx Instructions: Test at least once daily-E11.9 (DME) lancets [Onetouch Delica Safety Lancet] 30 gauge misc See Rx Instructions .Route Qty: 100 0RF Rx Instructions: Test once daily-E11.9 Eliquis 5 mg tablet 5 mg PO BID Qty: 74 0RF Rx Instructions: 10 mg twice a day x7 days then 5 mg twice a day thereafter aspirin 81 mg Tablet,Delayed Release (Dr/Ec) 81 mg PO QAM gabapentin 100 mg capsule 100 mg PO QPM Discharge Orders: Discharge Order (Routine); Ordered 03/06/25 Ordered By: Daniel Martinez Admission Data Admit Date/Time: 03/05/25 13:08 Attending Provider: Daniel Martinez Admit Provider: Daniel Martinez Primary Care Provider: Katie Persaud Other Interventions: Discharge Summary Assessment (RN) Last Done: 03/06/25 10:22 Coding Level of Care Code 31041 IN/OBS DISCH 30 MIN/LESS Diagnoses Second degree heart block I44.1
--- NOTE | 2025-03-06 08:41 | XRay Report ---
EXAM: XR chest 2V PA/lateral CLINICAL HISTORY: Evaluate for pneumothorax. TECHNIQUE: X-ray images of the chest were obtained in posteroanterior (PA) and lateral projections. COMPARISON: Prior X-ray dated 01/26/2025 for comparison. FINDINGS: Pulmonary Parenchyma: Prominent bilateral parahilar markings. No evidence of consolidation, collapse, or focal opacities. No pulmonary nodules identified. No evidence of pleural effusion or pleural thickening. Heart and Mediastinum: Mild cardiomegaly. Left dual wire cardiac pacemaker. No mediastinal widening or masses. No hilar or mediastinal lymphadenopathy. Bony Thorax: Spondylotic changes in the thoracic spine. Bony thorax appears intact without fractures or deformities. Soft Tissues: Soft tissues overlying the chest wall are unremarkable. Artifacts over the left clavicle. IMPRESSION: 1. No evidence of pneumothorax. 2. Prominent bilateral parahilar markings possibly congestion, stable. 3. Mild cardiomegaly, stable. 4. Left dual wire cardiac pacemaker. New finding. Electronically signed by Yuval Zee 03-06-2025 08:40 AM
--- NOTE | 2025-03-08 08:38 | Electrocardiogram Report ---
Test Reason : Blood Pressure : */* mmHG Vent. Rate : 68 BPM Atrial Rate : 68 BPM P-R Int : 176 ms QRS Dur : 104 ms QT Int : 430 ms P-R-T Axes : 49 -49 82 degrees QTcB Int : 457 ms Atrial-sensed ventricular-paced rhythm Abnormal ECG When compared with ECG of 18-Feb-2025 10:45, (unconfirmed) Electronic ventricular pacemaker has replaced Sinus rhythm Confirmed by Mel Puri (Maida) on 03/08/2025 8:38:16 AM Referred By: Nixon Morales Confirmed By: Mel Puri
== END 2025-03-06 10:25 | disposition home or self-care (01) | DRG 244 ==
LOC: EP 12:46 → INTOOBSV 13:08 → 2S 13:08